=== PATIENT | female | born 1955 | race Caucasian/White ===

== ENCOUNTER 2019-04-23 10:55 | Inpatient (IN) ==
--- NOTE | 2019-04-23 11:48 | Diag Imaging Result Doc PS360 ---
EXAM: CT HEAD W/O CONTRAST 04/23/2019 HISTORY: STROKE LIKE SX TECHNIQUE: This exam was performed using automated exposure control, adjustment of mA or kV according to patient size, and/or use of iterative reconstruction technique. COMMENT: There are calcifications in the vertebral and internal carotid arteries bilaterally. There are patchy lucencies in the white matter both hemispheres particularly in the left centrum semiovale ovale and patel radiata regions. There is a focal area of lucency present in the anterior limb of the left internal capsule and also in both thalami. There are calcifications in the basal ganglia bilaterally. There is no evidence of bleed or abnormal extra-axial fluid collection and no mass effect is present. The visualized paranasal sinuses are clear. The calvarium is intact. There are no previous studies available for comparison. IMPRESSION: Extensive chronic ischemic changes. Given the chronic findings further evaluation with MRI may be desirable. Electronically signed by Bairon Resendez 04/23/2019 11:45 AM
--- NOTE | 2019-04-23 11:59 | Diag Imaging Result Doc PS360 ---
EXAM: CHEST-PORTABLE HISTORY: altered mSE TECHNIQUE: Chest single view COMPARISON: 03/06/2015 FINDINGS: Poor inspiratory effort. The heart is not enlarged. The vessels are not distended. There are no infiltrates. No effusion identified. IMPRESSION: Negative exam. Electronically signed by Karson Gomez 04/23/2019 11:56 AM
[2019-04-23 12:01] LABS: BASO# 0.01 X1000 (0.0-0.2); BASO% 0.1 % (0.0-0.8); EOS# 0.05 X1000 (0.0-0.7); EOS% 0.6 % (0.0-10.0); HEMATOCRIT 36.2 % (37.0-47.0); IMM GRAN# 0.02 X1000 (0.0-0.04); IMM GRAN% 0.2 % (0.0-0.5); LYMPH% 17.2 % (20.5-51.1); MCH 25.7 PG (27-31); MCHC 30.4 g/dL (33-37); MCV 84.6 FL (81-99); MONO% 8.6 % (1.7-9.3); MPV 9.6 FL (7.4-10.4); NEUT# 5.94 X1000 (1.4-6.5); NEUT% 73.3 % (42.2-75.2); PLT 484 X1000 (130-400); RBC 4.28 XMIL (4.2-5.4); RDW 14.6 % (11.5-14.5); WBC 8.12 X1000 (4.8-10.8)
[2019-04-23 12:06] LABS: INR 1.04; PROTIME 14.4 Seconds (11.0-16.0)
[2019-04-23 12:07] LABS: URINE SOURCE CATH
[2019-04-23 12:07] LABS: PTT 33.7 Seconds (22.3-41.8)
[2019-04-23 12:12] LABS: BLOOD TYPE ARTERIAL; SAMPLE BLOOD
[2019-04-23 12:12] LABS: BILIRUBIN URINE NEGATIVE (NEGATIVE); BLOOD URINE NEGATIVE (NEGATIVE); COLOR YELLOW; GLUCOSE URINE NEGATIVE (NEGATIVE); KETONE URINE NEGATIVE (NEGATIVE); LEUKOCYTES URINE NEGATIVE (NEGATIVE); NITRITE URINE NEGATIVE (NEGATIVE); PH URINE 6.5; PROTEIN URINE NEGATIVE (NEGATIVE); TURBIDITY URINE CLEAR (CLEAR); UR EPITHELIAL CELLS <10 /HPF (<10); URINE BACTERIA 2+ /HPF; URINE RBC <10 /HPF (<10); URINE WBC <10 /HPF (<10); UROBILINOGEN URINE NORMAL (NORMAL)
[2019-04-23 12:13] LABS: ALLEN TEST YES; BE 2.6 mmoll (-3.0-3.0); HCO3-(ACT) 26.9 mmoll (20.0-26.0); MODALITY ROOM AIR; O2(CT) 14.8 mL/dL (15.0-23.0); O2HB 94.3 % (95.0-99.0); PCO2(98.6) 36 mmHg (35-45); PO2(98.6) 69 mmHg (60-100); SAO2 96.8 % (95.0-100.0); THB 11.1 g/dL (11.5-17.4); pH(98.6) 7.47 (7.35-7.45)
[2019-04-23 12:20] LABS: UR AMPHETAMINES QUAL NONE DETECTED (NONE DETECT); UR BARBITUATES QUAL NONE DETECTED (NONE DETECT); UR BENZODIAZEPIN QUAL NONE DETECTED (NONE DETECT); UR CANNABINOIDS QUAL NONE DETECTED (NONE DETECT); UR COCAINE QUAL NONE DETECTED (NONE DETECT); UR METHADONE QUAL NONE DETECTED (NONE DETECT); UR OPIATES QUAL NONE DETECTED (NONE DETECT); UR OXYCODONE QUAL NONE DETECTED (NONE DETECT); UR PCP QUAL NONE DETECTED (NONE DETECT)
--- NOTE | 2019-04-23 12:29 | EKG Report ---
Test Performed on : 04/23/2019 11:21:57 AM Test Reason : altered MSE Blood Pressure : / mmHG Vent. Rate : 099 BPM Atrial Rate : 099 BPM P-R Int : 140 ms QRS Dur : 086 ms QT Int : 310 ms P-R-T Axes : 011 001 053 degrees QTc Int : 397 ms Normal sinus rhythm. Moderate voltage criteria for LVH, may be normal variant Nonspecific ST and T wave abnormality Abnormal ECG When compared with ECG of 09-MAR-2015 13:40, Nonspecific T wave abnormality has replaced inverted T waves in Lateral leads Unconfirmed Result
[2019-04-23 12:41] LABS: AGAP 15; ALB/GLOB RATIO 1.3; ALBUMIN 3.5 g/dL (3.5-5.0); ALKALINE PHOSPHATASE 98 U/L (32-104); BUN 10 mg/dL (8-22); CALCIUM 9.9 mg/dL (8.8-10.2); CHLORIDE 104 mmol/L (98-107); CK PROFILE 31 U/L (24-173); COSMO 283; CREATININE 0.6 mg/dL (0.5-0.9); ESTIMATED GFR > 60; GLUCOSE 121 mg/dL (70-104); GOT 8 U/L (10-30); GPT 8 U/L (10-36); POTASSIUM 4.3 mmol/L (3.5-5.1); SODIUM 142 mmol/L (136-145); TCO2 23 mmol/L (25-35); TOTAL PROTEIN 6.2 g/dL (6.3-8.3)
--- NOTE | 2019-04-23 16:20 | Diag Imaging Result Doc PS360 ---
EXAM: MRI BRAIN W/O CONTRAST 04/23/2019 HISTORY: new confusion, expressive aphasia TECHNIQUE: T1 sagittal, axial, axial T2, FLAIR, DWI and coronal gradient echo. COMMENT: There are some small punctate areas of increased T2-weighted signal intensity in the elena and lower midbrain. There are patchy periventricular foci of increased T2-weighted signal intensity with the old lacune in the left centrum semiovale ovale. There are patchy areas of increased T2-weighted signal intensity in the thalamus bilaterally and in the left basal ganglia region and anterior limb of the internal capsule. There is increased subcortical white matter hyperintensity in the left temporal lobe. No evidence of mass effect bleed or abnormal extra-axial fluid collection is present. There are punctate and patchy areas of restricted diffusion in the periventricular and subcortical white matter in the posterior temporal and parietal cortex on the left and in the centrum semiovale ovale,, basal ganglia parietal cortex on the left. There are no previous studies available for comparison. IMPRESSION: Acute or subacute ischemic lesions superimposed on extensive chronic ischemic microvascular change. The fairly widely distributed lesions on the left could be result of emboli coming from the left carotid. There are mostly in the distribution of the left middle cerebral artery although the posterior lesions are in the watershed zone between the posterior cerebral and middle cerebral territories. The findings were discussed with Jose Givens MD at 04/23/2019 4:17 PM. Electronically signed by Bairon Resendez 04/23/2019 4:18 PM
--- NOTE | 2019-04-23 17:11 | PROVIDER DOCUMENTATION ---
This chart was entered by Leighann Noriega Scribe, acting as scribe for Jose Givens MD. HPI-Neurological Disorder - General Chief Complaint: Altered Mental Status Stated Complaint: stroke like sx Time Seen by Provider: 04/23/19 11:14 Source: EMS Allergies/Adverse Reactions: Patient Allergies Allergy/AdvReac Type Severity Reaction Status Date / Time Sulfa (Sulfonamide Allergy RASH Verified 12/20/14 07:27 Antibiotics) Home Medications: Home Medication List Medication Instructions Recorded Confirmed Last Taken Type LISINOpril [Prinivil] 20 mg PO DAILY 04/23/19 04/23/19 Unknown History Meclizine HCl [Dramamine Less 1 tab PO Q8H PRN PRN 04/23/19 04/23/19 Unknown History Drowsy] Metformin E.r. [Glucophage Xr] 500 mg PO TID 04/23/19 04/23/19 Unknown History Metoprolol Succinate E.r. [Toprol 25 mg PO DAILY 04/23/19 04/23/19 Unknown History Xl] Simvastatin 20 mg PO QHS 04/23/19 04/23/19 Unknown History - History of Present Illness-Neuro Nature of Presenting Problem: 63yof presents to ED by EMS cc AMS. EMS reports they were called to pt doctor office because she was walking around in the parking lot confused. In ED nurse spoke with sister, who is listed as her emergency contact, and reports pt has a learning disability and speech impediment. Upon exam pt can answer yes/no questions but can't verbalize who the POTUS is. Pt has hx of DM, HTN and umbilical hernia repair. Onset/Duration: reports: unsure Timing: reports: still present Character of Altered Mental Status: reports: confused Review of Systems - Adult - REVIEW OF SYSTEMS - ADULT ROS:: unobtainable per condition Constitutional: reports: no symptoms reported Eyes: reports: no symptoms reported Ears, Nose, Mouth & Throat: reports: no symptoms reported Cardiovascular: reports: no symptoms reported Respiratory: reports: no symptoms reported Gastrointestinal: reports: no symptoms reported Genitourinary: reports: no symptoms reported Musculoskeletal: reports: no symptoms reported Integumentary: reports: no symptoms reported Neurological: reports: no symptoms reported Psychiatric: reports: no symptoms reported Endocrine: reports: no symptoms reported Hematologic/Lymphatic: reports: no symptoms reported Allergic/Immunologic: reports: no symptoms reported All Other Systems: Reviewed and Negative Past History - Adult - PAST MEDICAL HISTORY-ADULT Review of Records: reports: Nursing Assessment Review, Medications Reviewed, Social history reviewed & non-contributory. Major Childhood Illnesses: reports: denies history Cardiovascular: reports: denies history Respiratory: reports: denies history Gastrointestinal: reports: denies history Obstetrical/Gynecological: reports: denies history Genitourinary: reports: denies history Musculoskeletal: reports: denies history Neurological: reports: denies history Endocrine/Immune: reports: denies history Other Conditions: reports: denies history - IMMUNIZATION STATUS Childhood Immunizations: See Nurse Assessment Flu Vaccine: See Nurse Assessment - FAMILY HISTORY Family History: reviewed, not pertinent Physical Exam- Neurological - Physical Exam-Neuro Initial Vital Signs Reviewed: Yes General Appearance: other (soiled feet and shoes). negative: anxious, combative Eye Exam: bilateral eye: normal inspection, PERRL HENMT: moist mucous membranes, normal ENT inspection. negative: angioedema Head Injury: no evidence of injury. negative: active bleeding, Weston's Sign, contusions, ecchymosis Neck: non-tender, full range of motion, supple, normal inspection. negative: Brudzinski's sign, carotid bruit Respiratory: chest non-tender, lungs clear, normal breath sounds, no pleuratic chest pain, no respiratory distress, no accessory muscle use. negative: crackle s, rales, rhonchi Cardiovascular: normal peripheral pulses, regular rate, rhythm, no edema, no gallop, no JVD, no murmur. negative: bradycardia, tachycardia Abdominal Exam: normal bowel sounds, non tender, soft, no organomegaly. negative: rigid, rebound, tenderness Lymphatic: no adenopathy. negative: striations Extremity: normal range of motion, normal inspection. 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 negative: normal speech Neurologic: aphasia (expressive) Integumentary: normal color, normal turgor, warm/dry. negative: diaphoresis, jaundice Psych/Mental Status: negative: anxious Progress - PLAN OF CARE/RESULTS Progress/Plan/Lab Results: Vital Signs - 8 hr 04/23/19 11:23 04/23/19 11:24 04/23/19 11:30 Temperature 98.8 F Pulse Rate 105 H Respiratory Rate 18 Blood Pressure 167/91 167/91 O2 Sat by Pulse Oximetry 97 96 96 04/23/19 11:40 04/23/19 11:50 04/23/19 12:00 Temperature Pulse Rate 101 H 104 H 95 H Respiratory Rate 20 24 Blood Pressure O2 Sat by Pulse Oximetry 98 97 97 04/23/19 12:10 04/23/19 12:20 04/23/19 12:30 Temperature Pulse Rate 93 H 97 H 91 H Respiratory Rate 21 31 H 17 Blood Pressure O2 Sat by Pulse Oximetry 98 96 98 04/23/19 12:40 04/23/19 12:50 04/23/19 13:00 Temperature Pulse Rate 91 H 93 H Respiratory Rate 14 29 H Blood Pressure O2 Sat by Pulse Oximetry 96 96 97 04/23/19 13:10 04/23/19 13:20 04/23/19 13:30 Temperature Pulse Rate 93 H 93 H 95 H Respiratory Rate 0 L 27 H 31 H Blood Pressure O2 Sat by Pulse Oximetry 96 96 96 04/23/19 13:40 04/23/19 13:50 04/23/19 14:00 Temperature Pulse Rate 91 H 86 96 H Respiratory Rate 22 15 20 Blood Pressure O2 Sat by Pulse Oximetry 96 96 96 04/23/19 14:10 04/23/19 14:28 04/23/19 14:30 Temperature Pulse Rate 93 H 96 H 102 H Respiratory Rate 11 L Blood Pressure O2 Sat by Pulse Oximetry 97 96 04/23/19 14:40 04/23/19 14:50 04/23/19 15:00 Temperature Pulse Rate 97 H 97 H 102 H Respiratory Rate Blood Pressure O2 Sat by Pulse Oximetry 93 L 94 L 93 L 04/23/19 15:10 04/23/19 15:20 04/23/19 15:30 Temperature Pulse Rate 97 H 99 H 96 H Respiratory Rate 18 Blood Pressure O2 Sat by Pulse Oximetry 95 96 96 04/23/19 15:40 Temperature Pulse Rate 99 H Respiratory Rate Blood Pressure O2 Sat by Pulse Oximetry 92 L Laboratory Results - last 24 hr 04/23/19 04/23/19 04/23/19 11:46 11:46 11:46 WBC 8.12 RBC 4.28 Hgb 11.0 L Hct 36.2 L MCV 84.6 MCH 25.7 L MCHC 30.4 L RDW Std Deviation 14.6 H Plt Count 484 H MPV 9.6 Immature Gran % (Auto) 0.2 Neut % (Auto) 73.3 Lymph % (Auto) 17.2 L Coal % (Auto) 8.6 Eos % (Auto) 0.6 Baso % (Auto) 0.1 Immature Gran # (Auto) 0.02 Neut # (Auto) 5.94 Lymph # (Auto) 1.40 Coal # (Auto) 0.70 H Eos # (Auto) 0.05 Baso # (Auto) 0.01 PT INR PTT (Actin FS) Specimen Type Sample Site pH pCO2 pO2 HCO3 Base Excess Oxyhemoglobin ABG O2 Sat (Calculated) ABG O2 Saturation ABG Carboxyhemoglobin ABG Methemoglobin Kota Test A-a O2 Difference Total Hemoglobin Lactate Blood Gas Modality FiO2 % Sodium 142 Potassium 4.3 Chloride 104 Carbon Dioxide 23 L Anion Gap 15 BUN 10 Creatinine 0.6 Estimated GFR/1.73 m2 > 60 BUN/Creatinine Ratio 17 Glucose 121 H POC Glucose Calculated Osmolality 283 Calcium 9.9 Total Bilirubin 0.20 AST 8 L ALT 8 L Alkaline Phosphatase 98 Creatine Kinase 31 Troponin T Total Protein 6.2 L Albumin 3.5 Globulin 2.7 Albumin/Globulin Ratio 1.3 Plasma Lactate 1.1 Urine Source Urine Color Urine Turbidity Urine pH Ur Specific [place] Urine Protein Ur Glucose (Stick) Ur Ketones (Stick) Urine Blood Urine Nitrite Urine Bilirubin Urobilinogen Dipstick Urine Leukocytes Urine WBC (Auto) Urine RBC (Auto) U Epithel Cells (Auto) Urine Bacteria (Auto) Urine Opiates Screen Ur Oxycodone Screen Ur Methadone, Qual Ur Barbiturates Screen Ur Phencyclidine Scrn Ur Amphetamines Screen U Benzodiazepines Scrn Urine Cocaine Screen U Cannabinoids Screen Plasma/Serum Ethyl Alc 04/23/19 04/23/19 04/23/19 11:46 11:46 11:46 WBC RBC Hgb Hct MCV MCH MCHC RDW Std Deviation Plt Count MPV Immature Gran % (Auto) Neut % (Auto) Lymph % (Auto) Coal % (Auto) Eos % (Auto) Baso % (Auto) Immature Gran # (Auto) Neut # (Auto) Lymph # (Auto) Coal # (Auto) Eos # (Auto) Baso # (Auto) PT 14.4 INR 1.04 PTT (Actin FS) 33.7 Specimen Type Sample Site pH pCO2 pO2 HCO3 Base Excess Oxyhemoglobin ABG O2 Sat (Calculated) ABG O2 Saturation ABG Carboxyhemoglobin ABG Methemoglobin Kota Test A-a O2 Difference Total Hemoglobin Lactate Blood Gas Modality FiO2 % Sodium Potassium Chloride Carbon Dioxide Anion Gap BUN Creatinine Estimated GFR/1.73 m2 BUN/Creatinine Ratio Glucose POC Glucose Calculated Osmolality Calcium Total Bilirubin AST ALT Alkaline Phosphatase Creatine Kinase Troponin T < 0.010 Total Protein Albumin Globulin Albumin/Globulin Ratio Plasma Lactate Urine Source Urine Color Urine Turbidity Urine pH Ur Specific [place] Urine Protein Ur Glucose (Stick) Ur Ketones (Stick) Urine Blood Urine Nitrite Urine Bilirubin Urobilinogen Dipstick Urine Leukocytes Urine WBC (Auto) Urine RBC (Auto) U Epithel Cells (Auto) Urine Bacteria (Auto) Urine Opiates Screen Ur Oxycodone Screen Ur Methadone, Qual Ur Barbiturates Screen Ur Phencyclidine Scrn Ur Amphetamines Screen U Benzodiazepines Scrn Urine Cocaine Screen U Cannabinoids Screen Plasma/Serum Ethyl Alc 04/23/19 04/23/19 04/23/19 11:55 11:55 12:00 WBC RBC Hgb Hct MCV MCH MCHC RDW Std Deviation Plt Count MPV Immature Gran % (Auto) Neut % (Auto) Lymph % (Auto) Coal % (Auto) Eos % (Auto) Baso % (Auto) Immature Gran # (Auto) Neut # (Auto) Lymph # (Auto) Coal # (Auto) Eos # (Auto) Baso # (Auto) PT INR PTT (Actin FS) Specimen Type ARTERIAL Sample Site R RADIAL pH 7.47 H pCO2 36 pO2 69 HCO3 26.9 H Base Excess 2.6 Oxyhemoglobin 94.3 L ABG O2 Sat (Calculated) 14.8 L ABG O2 Saturation 96.8 ABG Carboxyhemoglobin 1.70 ABG Methemoglobin 1.0 Kota Test YES A-a O2 Difference 36.0 Total Hemoglobin 11.1 L Lactate 0.60 Blood Gas Modality ROOM AIR FiO2 % 21.0 Sodium Potassium Chloride Carbon Dioxide Anion Gap BUN Creatinine Estimated GFR/1.73 m2 BUN/Creatinine Ratio Glucose POC Glucose Calculated Osmolality Calcium Total Bilirubin AST ALT Alkaline Phosphatase Creatine Kinase Troponin T Total Protein Albumin Globulin Albumin/Globulin Ratio Plasma Lactate Urine Source CATH Urine Color YELLOW Urine Turbidity CLEAR Urine pH 6.5 Ur Specific [place] 1.020 Urine Protein NEGATIVE Ur Glucose (Stick) NEGATIVE Ur Ketones (Stick) NEGATIVE Urine Blood NEGATIVE Urine Nitrite NEGATIVE Urine Bilirubin NEGATIVE Urobilinogen Dipstick NORMAL Urine Leukocytes NEGATIVE Urine WBC (Auto) <10 Urine RBC (Auto) <10 U Epithel Cells (Auto) <10 Urine Bacteria (Auto) 2+ Urine Opiates Screen NONE DETECTED Ur Oxycodone Screen NONE DETECTED Ur Methadone, Qual NONE DETECTED Ur Barbiturates Screen NONE DETECTED Ur Phencyclidine Scrn NONE DETECTED Ur Amphetamines Screen NONE DETECTED U Benzodiazepines Scrn NONE DETECTED Urine Cocaine Screen NONE DETECTED U Cannabinoids Screen NONE DETECTED Plasma/Serum Ethyl Alc 04/23/19 12:03 WBC RBC Hgb Hct MCV MCH MCHC RDW Std Deviation Plt Count MPV Immature Gran % (Auto) Neut % (Auto) Lymph % (Auto) Coal % (Auto) Eos % (Auto) Baso % (Auto) Immature Gran # (Auto) Neut # (Auto) Lymph # (Auto) Coal # (Auto) Eos # (Auto) Baso # (Auto) PT INR PTT (Actin FS) Specimen Type Sample Site pH pCO2 pO2 HCO3 Base Excess Oxyhemoglobin ABG O2 Sat (Calculated) ABG O2 Saturation ABG Carboxyhemoglobin ABG Methemoglobin Kota Test A-a O2 Difference Total Hemoglobin Lactate Blood Gas Modality FiO2 % Sodium Potassium Chloride Carbon Dioxide Anion Gap BUN Creatinine Estimated GFR/1.73 m2 BUN/Creatinine Ratio Glucose POC Glucose 109 H Calculated Osmolality Calcium Total Bilirubin AST ALT Alkaline Phosphatase Creatine Kinase Troponin T Total Protein Albumin Globulin Albumin/Globulin Ratio Plasma Lactate Urine Source Urine Color Urine Turbidity Urine pH Ur Specific [place] Urine Protein Ur Glucose (Stick) Ur Ketones (Stick) Urine Blood Urine Nitrite Urine Bilirubin Urobilinogen Dipstick Urine Leukocytes Urine WBC (Auto) Urine RBC (Auto) U Epithel Cells (Auto) Urine Bacteria (Auto) Urine Opiates Screen Ur Oxycodone Screen Ur Methadone, Qual Ur Barbiturates Screen Ur Phencyclidine Scrn Ur Amphetamines Screen U Benzodiazepines Scrn Urine Cocaine Screen U Cannabinoids Screen Plasma/Serum Ethyl Alc Orders Category Date Time Status Cardiac Monitoring DIRECTED Care 04/23/19 11:33 Active Saline Loc NOW Care 04/23/19 11:33 Active CHEST-PORTABLE [RAD] Stat Exams 04/23/19 11:[address] HEAD W/O CONTRAST [CT] Stat Exams 04/23/19 10:57 Completed MRI BRAIN W/O CONTRAST [MRI] Stat Exams 04/23/19 14:48 Completed ABG [RESP] Routine Lab 04/23/19 12:00 Completed ALCOHOL BLOOD Stat Lab 04/23/19 11:46 Completed CBC WITH ELECTRONIC DIFF [HEME] Stat Lab 04/23/19 11:46 Completed CK PROFILE [SP CHEM] Stat Lab 04/23/19 11:46 Completed COMPREHENSIVE METABOLIC PANEL [CHEM] Stat Lab 04/23/19 11:46 Completed LACTATE, PLASMA [CHEM] Stat Lab 04/23/19 11:46 Completed PROTIME WITH INR [COAG] Stat Lab 04/23/19 11:46 Completed PTT [COAG] Stat Lab 04/23/19 11:46 Completed TROPONIN T Stat Lab 04/23/19 11:46 Completed URINALYSIS [URINALYSIS] Stat Lab 04/23/19 11:55 Completed URINE DRUG SCREEN Stat Lab 04/23/19 11:55 Completed Altered Mental Status Stat Oth 04/23/19 11:33 Ordered EKG [EKG] Stat Ther 04/23/19 11:33 Draft 1454-Pt neighbor here and reports she is changed from baseline over the past week especially her speech and cognitive ability Result Diagrams: 04/23/19 11:46 04/23/19 11:46 - REASSESSMENT Reassessment #1 Time Reassessed: 14:30 Status: unchanged (MRI reveals multiple areas of restriction diffusion in L MCA distribution sugg'x of embolic source. will consult for admission) - EKG 1 Time of EKG reading by physician:: 11:26 EKG Read and Signed by:: Jose Givens EKG Interpretation (*Must complete 3 of following elements*): Abnormal Rate: 99 Rhythm: normal sinus QRS: LVH (moderate voltage, may be normal variant) ST Wave: non-specific ST changes - XRAY 1 XRAY: Bilateral XRAY Study: Chest Impression: See EMR Report (IMPRESSION: Negative exam. Electronically sig dianne by Karson Gomez 04/23/2019 11:56 AM) - CT/MRI 1 CT Study: Head Impression: See EMR Report (MPRESSION: Extensive chronic ischemic changes. Given the chronic findings further evaluation with MRI may be desirable. El ectronically signed by Bairon Resendez 04/23/2019 11:45 AM) MRI Study: Brain Impression: See EMR Report (IMPRESSION: Acute or subacute ischemic lesions superimposed on extensive chronic ischemic microvascular change. The fairly widely distributed lesions on the left could be result of emboli coming from the left carotid. There are mostly in the distribution of the left middle cerebral artery although the posterior lesions are in the watershed zone between the posterior cerebral and middle cerebral territories. The findings were discussed with Jose Givens MD at 04/23/2019 4:17 PM. Electronically signed by Bairon Resendez 04/23/2019 4:18 PM) - CONSULTS/PCP/HOSPITALIST Notification #1 *Consult/PCP/Hospitalist*: Dr. Torres Time Discussed: 16:25 Consult Disposition: Admit (agreed to admit) Departure - Departure Date of Disposition Decision: 04/23/19 Time of Disposition Decision: 16:00 DIAGNOSIS: Acute cerebral infarction Disposition: ADMITTED INPATIENT 09 Certified Medical Emergency: Emergent Condition: Stable Referrals and Follow-Ups: Gian Bacon MD [Primary Care Provider] - - Critical Care Note This patient required my direct & personal management of CC.: No Attestation - Physician/ NUVIA Attestation Patient care was provided by Advanced Practice Provider:: No The physician spent face to face time with patient:: Yes Advanced Practice Provider documentation review:: Supervising physician onsite and consulted in the evaluation and care of this patient. The physician did have a face to face encounter with the patient. - NIH Stroke Scale Level of Consciousness: 0-Alert LOC Questions (ask month and age): 1-Answers One Correctly LOC Commands (ask to open & close eyes;make a fist, let go): 0-Obeys Both Correctly Best Gaze (horizontal eye movement): 0-Normal Visual (use finger movement, counting or visual threat): 0-No Visual Loss Facial Palsy (show teeth or raise eyebrows & close eyes tght: 0-Symmetrical Movement Motor Function-left arm: 0-Normal Motor Function-right arm: 0-Normal Motor Function-left le-Normal Motor Function-right le-Normal Limb Ataxia([id number], or heel to gallagher): 0-No Ataxia Sensory(pin prick to face,arms,trunk,legs-compare side/side): 0-No Ataxia Best Language(name item/read sentence.Ex-Down to Earth): 1-Mild to Moderate Aphasia Dysarthria(Pt read words or say words Ex.Mama,Tip-Top,Thanks: 1-Mild-Mod Slurring Words Extinction and Inattention: 0-Normal Modified Newberry Score Criteria: 3-moderate disability This chart was documented by the indicated scribe, (Leighann Noriega, Luly) and accurately reflects the services I performed and decisions made by me, Neha in,Jose Mercado MD, as attested by the provider's signature.
[2019-04-23] MEDS ORDERED: TYLENOL PO PRN (18:05)
[2019-04-23] MEDS ORDERED: ZOFRAN IV PRN (18:07)
--- NOTE | 2019-04-23 19:11 | HISTORY AND PHYSICAL ---
PRIMARY CARE PROVIDER: Dr. Gian Bacon. CHIEF COMPLAINT: Had altered mental status and expressive aphasia. HISTORY OF PRESENT ILLNESS: Ms. Josefa Abrams is a 63-year-old female with a medical history of speech impediment and the information that I could get from her is that she has had coronary disease with stents in the past and then she claims that she has had a stroke some time this year, but this could be inaccurate as well, as she is having difficulty expressing what she wants to say. So apparently earlier today she was found wandering around in Dr. Gian Bacon's parking lot. The friend, who is a neighbor of hers, thought she had an appointment with Dr. Bacon, but then Dr. Bacon's office said she did not. So, apparently (and this is third republican information I am getting from the nurse, who apparently talked to the neighbor) the neighbor stated that on Friday she seemed kind of off but continued to do things around the place like mowing the yard and her usual activities up until today when she seemed to be wandering around in the parking lot. She had a workup which revealed that she has acute or subacute ischemic lesions on extensive chronic ischemic microvascular changes on the left middle cerebral artery, Watershed zone, between the posterior cerebral and the middle cerebral arteries. Now the actual time of when this happened is unclear as there is reports of her being altered a little bit, even this past Friday. Currently, her vital signs are stable but assessment reveals that she does have expressive aphasia. She has an easier time saying yes and no to specific questions. She is oriented to name only as far as we could tell, she can say her name. She is actually decently equal on both upper and lower extremities but she has some numbness and tingling on the right side and she has a mild right facial droop. Tongue is not deviated. She has mild right upper extremity pronator drift. Pupils are equal and reactive. She follows commands. Given that this is like a Watershed distribution, will consult Cardiology to evaluate for any type of cardiac cause and will check the carotids as well with imaging. Will consult Neurology. PAST MEDICAL HISTORY: 1. Osteoarthritis. 2. Hypertension. 3. GERD. 4. Speech impediment. The next few medical history was her answering yes or no to questions but she did say yes to 1. Stroke this year. 2. Coronary disease. 3. No to heart attack, but yes to stents. 4. Yes to diabetes. 5. Yes to hyperlipidemia. 6. Denies any other medical history. PAST SURGICAL HISTORY: 1. Left total knee arthroplasty. 2. Left carpal tunnel release. The following is her answering yes or no to specifics 1. Yes to right knee surgery. 2. Yes to cardiac stents. 3. Yes to cholecystectomy. 4. Yes to appendectomy. SOCIAL HISTORY: Denies tobacco, alcohol, or illicit drug use. She lives by herself in [place]. She was able to give the number of her residence or number address to her residence. She has never been , never had kids. Her neighbor, who lives across from her, sees her almost on a daily basis. ALLERGIES: Sulfa. HOME MEDICATIONS: 1. Simvastatin 20 mg p.o. nightly. 2. Meclizine one tablet p.o. every eight hours p.r.n. 3. Metformin 500 mg p.o. t.i.d. 4. Lisinopril 20 mg p.o. daily. 5. Toprol XL 25 mg p.o. daily. REVIEW OF SYSTEMS: Difficult to obtain, but she stated no to multiple questions. Denied headache, dizziness, or lightheadedness. She did say yes to not remembering what happened up until she got here. Otherwise, 14-point review of systems are complete and all are negative except as mentioned above in the HPI. PHYSICAL EXAMINATION: VITAL SIGNS: Temperature 98.8, heart rate 99, respiratory rate 18, blood pressure 167/91, oxygen saturation 92% on room air. GENERAL: Ms. Josefa Abrams is a 63-year-old female. She is in no acute distress. She has a lot of difficulty answering questions. HEENT: Atraumatic. She is asymmetrical with her face. She has right facial droop. Tongue does not deviate though, it goes straight. Her mucous membranes are moist. Pupils are equal and reactive. Extraocular movements are intact. NECK: Trachea is midline. CARDIOVASCULAR: S1, S2. Regular rate and rhythm. No rubs, gallops, or murmurs. No lower extremity edema. +2 dorsalis and radial pulses. Negative for JVD or carotid bruits. PULMONARY: Clear to auscultate. Bilateral breath sounds. No accessory muscle use or work of breathing noted. GI: Soft, nontender, and nondistended. Positive bowel sounds times x4. EXTREMITIES: She actually moves all extremities equally but has a right upper extremity pronator drift. She has numbness down the right side of her body, including her face. NEURO: Oriented to name. Disoriented otherwise or was unable to express her answers. She may have known the answer but could not express it. So, she is quite notable for expressive aphasia but receptive is normal for her. She is able to follow commands. Sensory - numbness on the right side of her body. SKIN: Warm, dry, and intact. LABORATORY DATA: White blood cells 8000. Hemoglobin 11. Hematocrit 36. Platelet count 484,000. INR is 1.04. PTT is 33.7. ABGs on room air - pH 7.47, pCO2 36, pO2 69, bicarb 26, base excess 2.6, saturation 94%. Lactate 0.6. Sodium 142, potassium 4.3, BUN 10, creatinine 0.6, glucose 121, calcium 9.9, bilirubin 0.20, AST 8, ALT 8. CK 31. Troponin less than 0.01. Albumin 3.5. Serum lactate 1.1. Urinalysis negative but it does have 2+ bacteria. Urine drug screen negative. Alcohol level negative. IMAGING: She had a head CT with extensive chronic ischemic changes; given the chronic findings, further evaluation with MRI may be desirable. So, we had a brain MRI which showed an acute or subacute ischemic lesion superimposed on extensive chronic ischemic microvascular change; fairly wide distribution of lesions on the left which could be embolic by nature from the left carotid, most of the distribution is in the left middle cerebral artery, although the posterior lesions are in the Watershed zone between the posterior cerebral and middle cerebral territories. Chest x- ray: Negative exam. EKG: Normal sinus rhythm. Rate 99. QTc 397. ASSESSMENT AND PLAN: 1. Acute to subacute embolic cerebrovascular accident on the left in the Watershed zones which include most distribution of the left middle cerebral artery. There are posterior lesions in the Watershed zone between the posterior cerebral and the middle cerebral territories as well. Aspirin, statin, and neuro consult. Given that it is embolic, will consult Cardiology to evaluate the heart for source of emboli. She did well with her swallow, so she can swallow. Will still do Speech Therapy and Physical Therapy. Will check her hemoglobin A1c and her lipid panel in the morning. Will allow for permissive hypertension as best as possible. She is on two antihypertensives. I held one. I kept her beta-erin because of her history of coronary disease. 2. History of coronary artery disease, according to the patient. She has a stent but never had a heart attack. She is on a statin and beta-erin at home. I am not sure if she takes aspirin or not. I would think she has because she has had a history of stroke, according to her. 3. Gastroesophageal reflux disease, but she does not take anything at home for that. 4. Hypertension. Will allow for a little bit of permissive hypertension. Will hold her lisinopril and start her Toprol at 25 orally daily and hold if the systolic is less than 130 for now. 5. Hyperlipidemia. Continue statins. 6. Diabetes mellitus type 2. Will hold her metformin. Will do patterned blood glucoses and sliding scale insulin. 7. Deep venous thrombosis prophylaxis. Sequential compression devices for now. Dictated by SOFI Coker for Rafat Manning MD Addendum: Patient seen and examined by myself. Agree with Sofi note. It reflects my assessment and plan. Patient is being admitted to hospital for acute embolic stroke. She has history of stroke in the past and with all those findings will order an echocardiogram and consult Neurology and Cardiology. Will follow recommendations. cc: SOFI Coker MD [facility]
--- NOTE | 2019-04-23 19:52 | Diag Imaging Result Doc PS360 ---
EXAM: CT ANGIOGRAM HEAD/NECK HISTORY: embolic stroke TECHNIQUE: 1. CT angiogram head with contrast. MIP images obtained. 2. CT angiogram neck with contrast. MIP images obtained. COMPARISON: None. FINDINGS: Angiogram head: Suboptimal images. Very little detail is seen. There is flow within each anterior and middle cerebral artery and each posterior cerebral artery. Unable to tell if there are prominent stenoses. Angiogram neck: No occlusion or stenosis within either common carotid artery. No occlusion within either internal carotid artery. Minimal plaque within each bulb. No significant stenosis. The vertebral arteries are poorly seen. IMPRESSION: Angiogram head: Suboptimal exam. No occlusion or stenosis identified. Angiogram neck: Normal flow within each common carotid artery with minimal stenosis within each internal carotid bulb. This exam was performed using automated exposure control, adjustment of mA or kV according to patient size, and/or use of iterative reconstruction technique. Electronically signed by Karson Gomez 04/23/2019 7:49 PM
[2019-04-23] MEDS: NS 1,000 ML IV SCH (22:15)
[2019-04-23] MEDS: LIPITOR PO SCH (22:15)
[2019-04-24 00:38] LABS: URINE SOURCE CLEAN CATCH
[2019-04-24 01:09] LABS: BILIRUBIN URINE NEGATIVE (NEGATIVE); BLOOD URINE NEGATIVE (NEGATIVE); COLOR YELLOW; GLUCOSE URINE NEGATIVE (NEGATIVE); KETONE URINE NEGATIVE (NEGATIVE); LEUKOCYTES URINE SMALL (NEGATIVE); NITRITE URINE POSITIVE (NEGATIVE); PROTEIN URINE TRACE mg/dL (NEGATIVE); TURBIDITY URINE CLEAR (CLEAR); UROBILINOGEN URINE NORMAL (NORMAL)
[2019-04-24 01:10] LABS: UR EPITHELIAL CELLS <10 /HPF (<10); URINE BACTERIA 4+ /HPF; URINE RBC <10 /HPF (<10); URINE WBC TNTC /HPF (<10)
[2019-04-24 07:34] LABS: BASO# 0.01 X1000 (0.0-0.2); BASO% 0.1 % (0.0-0.8); EOS# 0.07 X1000 (0.0-0.7); EOS% 0.9 % (0.0-10.0); HEMATOCRIT 36.2 % (37.0-47.0); HEMOGLOBIN 10.9 g/dL (12.0-16.0); LYMPH# 1.29 X1000 (1.2-3.4); LYMPH% 16.8 % (20.5-51.1); MCH 25.6 PG (27-31); MCHC 30.1 g/dL (33-37); MONO# 0.65 X1000 (0.11-0.59); MONO% 8.5 % (1.7-9.3); MPV 9.5 FL (7.4-10.4); NEUT# 5.64 X1000 (1.4-6.5); NEUT% 73.7 % (42.2-75.2); PLT 457 X1000 (130-400); RBC 4.26 XMIL (4.2-5.4); RDW 14.7 % (11.5-14.5); WBC 7.66 X1000 (4.8-10.8)
[2019-04-24 07:45] LABS: INR 1.09
[2019-04-24 07:46] LABS: PTT 36.6 Seconds (22.3-41.8)
[2019-04-24 07:57] LABS: HEMOGLOBIN A1C 6.2 % (4.8-6.0)
[2019-04-24 08:06] LABS: AGAP 10; ALB/GLOB RATIO 1.2; ALBUMIN 3.4 g/dL (3.5-5.0); ALKALINE PHOSPHATASE 90 U/L (32-104); BUN 6 mg/dL (8-22); CALCIUM 9.6 mg/dL (8.8-10.2); CHLORIDE 104 mmol/L (98-107); COSMO 277; CREATININE 0.6 mg/dL (0.5-0.9); ESTIMATED GFR > 60; GLUCOSE 133 mg/dL (70-104); GOT 8 U/L (10-30); GPT 7 U/L (10-36); POTASSIUM 4.3 mmol/L (3.5-5.1); SODIUM 139 mmol/L (136-145); TCO2 25 mmol/L (25-35); TOTAL BILIRUBIN 0.24 mg/dL (0.20-1.00); TOTAL PROTEIN 6.3 g/dL (6.3-8.3)
[2019-04-24] MEDS: ASPIRIN PO SCH (09:43)
[2019-04-24] MEDS: TOPROL XL PO SCH (09:43)
[2019-04-24] MEDS: NS 1,000 ML IV SCH (09:43)
--- NOTE | 2019-04-24 15:24 | ECHO REPORT ---
ORDER DATE: 04/23/2019 INTERPRETING PHYSICIAN: Emanuel Christensen MD INDICATION: This is a patient that has expressive aphasia. Question of recent recurrent stroke. M-MODE MEASUREMENTS: Left ventricle end diastole: 4.1 cm. Left ventricle end systole: 2.4 cm. Posterior wall: 1.2 cm. Interventricular septum: 1.3 cm. Left atrium: 3.4 cm. Aortic diameter: Not measured here. SUMMARY OF 2-DIMENSIONAL IMAGIN. Left ventricular systolic function is normal. Ejection fraction is estimated in the 70% to 75% range. The ventricle is hyperdynamic. 2. The aortic valve shows a minimal degree of sclerosis of the cusps but normal opening of the cusps. Color flow mapping is unremarkable. 3. The mitral annulus shows mild calcification. Color flow mapping of the mitral valve is unremarkable. 4. Pulse wave Doppler of mitral inflow shows relatively normal E/A ratio. 5. Tissue Doppler of septal and lateral mitral annulus was not carried out. 6. The tricuspid valve looks grossly normal. Color flow mapping is unremarkable. 7. Pulmonary pressure appears to be normal. 8. The pulmonic valve looks normal. Color flow mapping is unremarkable. 9. There is no pericardial effusion and no sign of thrombus. 10.Optison was added to better identify the endocardium and exclude thrombus. That resulted in no better assessment. Basically the patient has a hyperdynamic left ventricle and nothing else. The E/A ratio is 0.6. SUMMARY: In summary, this echocardiographic study shows: 1. Hyperdynamic left ventricle. 2. No pulmonary hypertension. 3. No evidence of cardiac masses. 4. No evidence of any significant valvular abnormality. Clinical correlation is recommended. cc: MD Rafat Meredith MD
--- NOTE | 2019-04-24 19:18 | PROGRESS NOTE ---
DATE: 04/24/2019 SUBJECTIVE: The patient is aphasic and answer yes or not to every question asked. She looks a little more awake today. OBJECTIVE: Vital signs: Temperature 97.6 degrees, heart rate 85, respiratory rate 18, blood pressure 162/80, O2 saturation 100% on room air.General Examination: This is a chronically ill- appearing 63-year-old female lying in bed, in no acute distress. Cardiovascular: S1, S2 heard. No murmurs, gallops or rubs. Regular rate and rhythm. Respiratory exam: Clear bilaterally to auscultation. No work of breathing or use of accessory muscles. Abdomen is soft, nontender to palpation. Bowel sounds present. No organomegaly. Extremities: No clubbing, cyanosis or edema. Peripheral pulses present in both legs. Neurological: The patient is oriented to name but disoriented to time and place. The patient is not able to express what she wanted to say. She has expressive aphasia. She follows commands. There is a numbness in the right side of her body. LABORATORY DATA: Reviewed. ASSESSMENT AND PLAN: 1. Acute embolic cerebrovascular accident. That is what the MRI of the brain shows. We have checked also CT of head and neck that is normal. At this time, considering that the reason for stroke is an embolic cause, Cardiology has been consulted for recommendations. Physical Therapy and Speech Therapy have been consulted. Unfortunately patient is not able to provide any pertinent information about her. Will try to get in contact with family and will go from there. 2. History of coronary artery disease. Aware. Not complaining of any chest pain. We will continue to monitor. 3. Gastroesophageal reflux disease. We will continue home medications. 4. Hypertension. We are allowing permissive hypertension as of now. We will treat blood pressure that is greater than 180 to 200. 5. Hyperlipidemia. We will continue with statin. 6. Diabetes mellitus type 2. Metformin has been held. We will continue with sliding scale insulin. Accu-Chek before meals and also at bedtime. cc: Rafat Manning MD [facility]
[2019-04-24] MEDS: LIPITOR PO SCH (22:27)
--- NOTE | 2019-04-24 23:47 | CARDIOLOGY CONSULTATION ---
DATE: 04/24/2019 CONSULTATION REQUESTED BY: Hospitalist service. REASON FOR CONSULTATION: Patient with suspected embolic stroke. HISTORY: This patient comes into the ER, according to the ER physician note, at 11:41 in the morning on April 23 with "confusion." The patient cannot verbalize. In the ER, they had found stable vital signs. Her blood pressure was 167/91, pulse was 105, temperature was 98 degrees, respirations were documented as 18 per minute. They did a head CT that shows extensive chronic ischemic change, MRI was suggested. The MRI of the brain done yesterday at 2:30 p.m. shows acute or subacute ischemic lesions superimposed on extensive chronic ischemic microvascular change. The fairly widely distributed lesions on the left could be the result of emboli coming from left carotid vessel. They went ahead and did a head and neck CT that was reported as a sub optimal exam at the level of the head. The neck showed normal flow within each common carotid vessel with minimal stenosis within each internal carotid ball. A chest x-ray reported as negative exam. EKG was done and showed sinus rhythm, early transition, nonspecific ST, T, this is at 11:21 in the morning of April 23. Troponin levels have been checked just once, is normal. ProBNP has not been checked. Lipid panel: Total cholesterol 141, LDL 80, HDL 41, triglycerides 95. BUN, creatinine normal. Hemoglobin is 10.9, hematocrit 36.2. The patient is aphasic. She cannot provide any meaningful intelligible cogent information. I cannot obtain surgical history on her. From records I have at my office, she had seen Dr. Demarco Ross as a referral from Dr. Andreia Vanegas office in 2013. At that time, they did a stress test that showed some questionable apical ischemia. Dr. Ross stated that she had hypertension. He prescribed amlodipine. She has had a left knee replacement. The patient has no children. She was disabled at that time. There is nothing else available in my office records. HOME MEDICATIONS: Listed included lisinopril 20 daily, meclizine every 8 hours, metformin 500 three times a day, metoprolol 25 mg daily, simvastatin 20 at bedtime. ALLERGIES: To sulfa drugs. PHYSICAL EXAMINATION: Vital signs: Blood pressure is 162/80, temperature 97.6 degrees, pulse 85, respirations 18. General: Patient is aphasic. She is not in distress. HEENT: Unremarkable. Chest: Diminished breath sounds bilaterally. Heart: Sounds are regular rhythmic. I do not hear a gallop or murmur. Abdomen: Nontender. Extremities: Show good pulses. No edema. Neurologic: She is aphasic. She has some inability to perform fine motor testing. She is just basically aphasic. IMPRESSION: 1. Patient who apparently has had a previous neurological event with residual expressive aphasia, which is very significant. 2. Question of recurrent embolic stroke from a cardiovascular source. 3. Per review of records, history of hypertension and seemingly diabetes mellitus type 2, since she is taking metformin. RECOMMENDATIONS: The 1st thing we need to do is really get a hold of the family. I have called the 2 phone numbers that I had listed in my office records from 2013, and none of those 2 numbers helps me to contact any family member. One has been disconnected already. We need to get information on this patient, past history. Once we contact the family, will be able to discuss whether or not we need to do a COMFORT on her to exclude cardiac embolism. I will review the echocardiogram that has been requested by the hospitalist service, and we will stop here until we decide with the family what other tests may be appropriate for this patient. cc: Emanuel Christensen MD
[2019-04-25] MEDS: NS 1,000 ML IV SCH ×3 (03:42→21:52)
[2019-04-25] MEDS: ASPIRIN PO SCH (10:26)
[2019-04-25] MEDS: TOPROL XL PO SCH (10:26)
--- NOTE | 2019-04-25 11:07 | CARDIOLOGY PROGRESS NOTE ---
DATE: 04/25/2019 CHIEF COMPLAINT: Aphasia. SUBJECTIVE: The patient continues to be aphasic. She does not seem to be in distress. OBJECTIVE: Blood pressure 159/86, temperature 98 degrees, pulse 87, respirations 20. The patient is awake. Chest: Clear to auscultation and percussion. Heart sounds regular and rhythmic. No gallop or murmur. DIAGNOSTIC DATA: Telemetry shows no arrhythmia. Blood work from yesterday shows a D-dimer of 1.63, sedimentation rate of 43 mm per hour. C-reactive protein is 123.3. Carcinoembryonic antigen is 9.0 nanograms per deciliter. IMPRESSION: 1. The patient presented with aphasia, possible recurrent stroke. 2. History of hypertension. 3. Diabetes mellitus type 2. 4. Inflammatory process going on with elevation of carcinoembryonic antigen. Rule out lung malignancy. RECOMMENDATIONS: At this time, I would request a CT of the chest without contrast, looking for pulmonary nodules. We are waiting for family members to show up and tell us what is going on with this patient's history. There is a gap of 5 years of unknown medical events that I cannot fill unless a family member or somebody who knows this patient can tell me. cc: Emanuel Christensen MD
--- NOTE | 2019-04-25 14:24 | PROGRESS NOTE ---
DATE: 04/25/2019 SUBJECTIVE: Patient continues to be aphasic and responds "yes" or "no" to every question asked. No acute issues noted as per nursing staff overnight. OBJECTIVE: Vital Signs: Temperature 98.2 degrees, heart rate 89, respiratory rate 20, blood pressure 148/77, O2 saturation 95% on room air. General Examination: This is a chronically ill- appearing, 63-year-old, female lying in bed, in no acute distress. HEENT: Head is normocephalic and atraumatic. Neck: No JVD noted. No carotid bruits. No lymphadenopathy. No thyromegaly. Cardiovascular Examination: S1 and S2 heard. No murmurs, gallops, or rubs. Regular rate and rhythm. Respiratory Examination: Clear bilaterally to auscultation. No work of breathing or use of accessory muscles. Abdomen: Soft, nontender to palpation. Bowel sounds present. No organomegaly. Extremities: No clubbing, cyanosis, or edema. Peripheral pulses present in both legs. Neurological Examination: The patient has expressive aphasia. Does follow commands, though numbness in the right side of her body. Laboratory Data: Reviewed. ASSESSMENT AND PLAN: 1. Acute embolic cerebrovascular accident. Apparently, at this point, she has not had any more neurological symptoms. At this point, I do not know if the aphasia is from this cerebrovascular accident because we were informed by the emergency room staff that she had a prior cerebrovascular accident. There are no members of the family at bedside. The patient is not able to provide any pertinent information because of her aphasia. We will try to contact the rest of the family. We will instruct the nurse to help us locate a member of the family who can provide more information for her. Also, cardiology has been consulted for this condition. 2. Hyperlipidemia. We will continue with statin. 3. Diabetes mellitus type 2. We will continue with Accu-Cheks and sliding scale before meals and also at bedtime. 4. Gastroesophageal reflux disease. We will continue with the same management. cc: Rafat Manning MD
--- NOTE | 2019-04-25 14:39 | Diag Imaging Result Doc PS360 ---
EXAM: CT THORAX W/O CONTRAST HISTORY: SUSPECTED LUNG CANCER TECHNIQUE: Emergent CT of the chest without contrast COMPARISON: None. FINDINGS: No pleural effusions. The heart is mildly enlarged. No thoracic aortic aneurysm. No enlarged lymph nodes. No consolidation. No bronchiectasis. No lung mass identified. There is vascular distention. Small hiatal hernia. IMPRESSION: Mild pulmonary edema. This exam was performed using automated exposure control, adjustment of mA or kV according to patient size, and/or use of iterative reconstruction technique. Electronically signed by Karson Gomez 04/25/2019 2:36 PM
[2019-04-25] MEDS: LIPITOR PO SCH (21:52)
[2019-04-26] MEDS: NS 1,000 ML IV SCH ×2 (00:07→12:27)
[2019-04-26] MEDS ORDERED: APRESOLINE IV PRN (05:23)
[2019-04-26 06:45] LABS: HEMOGLOBIN 11.1 g/dL (12.0-16.0); MCHC 30.8 g/dL (33-37); MCV 84.3 FL (81-99); MPV 9.6 FL (7.4-10.4); RBC 4.27 XMIL (4.2-5.4); RDW 14.7 % (11.5-14.5); WBC 8.08 X1000 (4.8-10.8)
[2019-04-26 07:10] LABS: AGAP 12; BUN 7 mg/dL (8-22); CALCIUM 9.4 mg/dL (8.8-10.2); CHLORIDE 106 mmol/L (98-107); COSMO 281; CREATININE 0.5 mg/dL (0.5-0.9); ESTIMATED GFR > 60; GLUCOSE 139 mg/dL (70-104); POTASSIUM 3.8 mmol/L (3.5-5.1); SODIUM 141 mmol/L (136-145); TCO2 23 mmol/L (25-35)
[2019-04-26] MEDS: TOPROL XL PO SCH ×2 (09:42→21:44)
[2019-04-26] MEDS: ASPIRIN PO SCH (09:42)
[2019-04-26 11:59] LABS: URIC ACID 5.6 mg/dL (2.4-5.7)
[2019-04-26] MEDS: ALTACE PO SCH ×2 (12:27→21:44)
--- NOTE | 2019-04-26 12:32 | PROGRESS NOTE ---
DATE: 04/26/2019 SUBJECTIVE: The patient continues to be aphasic and answered to everything yes or no randomly. OBJECTIVE: Vital Signs: Temperature 98.5 degrees, heart rate 96, respiratory rate 20, blood pressure 171/88, O2 saturation is 96% on room air. General Examination: This is a chronically ill-appearing, 69-year-old, female lying in bed, in no acute distress. HEENT: Head is normocephalic and atraumatic. Mucous membranes are dry. Neck: No JVD noted. No carotid bruits. No lymphadenopathy. No thyromegaly. Cardiovascular Examination: S1 and S2 heard. No murmurs, gallops, or rubs. Regular rate and rhythm. Respiratory Examination: Clear bilaterally to auscultation. No work of breathing or using accessory muscles. Abdomen: Soft, nontender to palpation. Bowel sounds present. No organomegaly. Extremities: No clubbing, cyanosis, or edema. Peripheral pulses present in both legs. Neurological Examination: The patient has expressive aphasia. Does follow commands though. There is numbness in the right side of her body. Laboratory Data: Reviewed. ASSESSMENT AND PLAN: 1. Acute embolic cerebrovascular accident. Apparently, there have not been more neurological signs in this patient. Unfortunately, she is not able to provide any pertinent information and until this time, still working on trying to get a hold of a member of the family to provide more information about her. Apparently, she has had a stroke before. In any case, also cardiology has been consulted who are planning to talk with some member of the family in order to proceed for any possible transesophageal echocardiogram. In any case, we will continue working on it. 2. Hyperlipidemia. We will continue with the statin. 3. Diabetes mellitus type 2. We will continue with Accu-Cheks before meals and also sliding scale insulin as well. 4. Gastroesophageal reflux disease. We will continue with omeprazole. cc: Rafat Manning MD
--- NOTE | 2019-04-26 12:57 | CARDIOLOGY PROGRESS NOTE ---
DATE: 04/26/2019 CHIEF COMPLAINT: Aphasia, question of embolic stroke. SUBJECTIVE: Ms. Abrams does not seem to feel any different. Of note, we have checked some inflammatory markers. Her D-dimer was 1.63 mcg/mL. Her C-reactive protein was elevated at 123.3 mcg/L. Her serum embryonic antigen was 9.0, and her sedimentation rate was 43 mm per hour. This all suggested the presence of some sort of inflammatory process, and I have requested a CT of the chest that was done yesterday that shows "mild pulmonary edema." The patient really does not have any complaints of dyspnea at this time. OBJECTIVE: Blood pressure is 171/88, temperature 98.5, pulse 93, respirations 20. She is awake, alert, oriented, no distress. HEENT: Unremarkable. Chest: Sounds clear to auscultation and percussion. Heart: Sounds regular and rhythmic. Abdomen: Nontender. Extremities showed no edema. Neurologic: She continues to be aphasic with expressive aphasia. DIAGNOSTIC DATA: Her electrolytes today are normal. Yesterday I spoke with sister who came to visit, over the phone. She brought a binder with a lot of information pertaining to the patient prior medical history, and in none of those records is there any indication that this patient has had any heart disease. This sister is the closest relative that she has. IMPRESSION: 1. The patient presented with aphasia, question of embolic stroke. 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 2. Hypertension. 3. Diabetes mellitus type 2. 4. Inflammatory process of uncertain etiology. RECOMMENDATIONS: At this time, we will try to optimize the management of her systemic blood pressure since her systolic blood pressure has been running high. I am going to put her on ramipril 5 mg twice a day, double up on the metoprolol and amlodipine. I will discuss with the primary service and see if there is anything else that we need to do to figure out what may be going on with her. cc: Emanuel Christensen MD [facility]
[2019-04-26] MEDS: LIPITOR PO SCH (21:43)
[2019-04-27] MEDS: NS 1,000 ML IV SCH ×3 (00:48→14:29)
[2019-04-27 07:53] LABS: URINE SOURCE CATH
[2019-04-27 08:01] LABS: BILIRUBIN URINE NEGATIVE (NEGATIVE); BLOOD URINE NEGATIVE (NEGATIVE); COLOR YELLOW; GLUCOSE URINE NEGATIVE (NEGATIVE); KETONE URINE NEGATIVE (NEGATIVE); LEUKOCYTES URINE TRACE (NEGATIVE); NITRITE URINE NEGATIVE (NEGATIVE); PROTEIN URINE NEGATIVE (NEGATIVE); SP GRAVITY URINE 1.003; TURBIDITY URINE CLEAR (CLEAR); UROBILINOGEN URINE NORMAL (NORMAL)
[2019-04-27 08:02] LABS: UR EPITHELIAL CELLS <10 /HPF (<10); URINE BACTERIA NEGATIVE /HPF; URINE RBC <10 /HPF (<10)
[2019-04-27 08:17] LABS: HEMATOCRIT 35.3 % (37.0-47.0); HEMOGLOBIN 10.8 g/dL (12.0-16.0); MCH 25.7 PG (27-31); MCHC 30.6 g/dL (33-37); MCV 83.8 FL (81-99); MPV 9.6 FL (7.4-10.4); RBC 4.21 XMIL (4.2-5.4); RDW 14.8 % (11.5-14.5); WBC 7.43 X1000 (4.8-10.8)
[2019-04-27 08:35] LABS: AGAP 10; BUN 7 mg/dL (8-22); CHLORIDE 105 mmol/L (98-107); COSMO 278; CREATININE 0.6 mg/dL (0.5-0.9); ESTIMATED GFR > 60; GLUCOSE 140 mg/dL (70-104); POTASSIUM 3.8 mmol/L (3.5-5.1); SODIUM 139 mmol/L (136-145); TCO2 24 mmol/L (25-35)
[2019-04-27] MEDS: TOPROL XL PO SCH ×2 (09:33→21:51)
[2019-04-27] MEDS: ALTACE PO SCH ×2 (09:33→21:52)
[2019-04-27] MEDS: NORVASC PO SCH (09:33)
[2019-04-27] MEDS: ASPIRIN PO SCH (09:33)
--- NOTE | 2019-04-27 12:52 | PROGRESS NOTE ---
DATE: 04/27/2019 SUBJECTIVE: Ms. Abrams is a 63-year-old female who was admitted with expressive aphasia and new stroke. No new events were noted overnight by the nursing staff. The patient cannot give any true history, but she does not appear in any distress. OBJECTIVE: Vital signs: Blood pressure 151/70, heart rate 83, respiratory rate 22, O2 saturation 98% on room air, temperature is 97.8. General: A 63-year-old female lying in hospital bed in no acute distress. Neurologic: The patient has significant expressive aphasia and is able to state her name but not place or year. She does follow commands without focal deficits. HEENT: Head is atraumatic and normocephalic. Pupils are equal, round and reactive to light. Oral mucosa is moist. Trachea is midline. There is no JVD. Chest: Clear to auscultation. Cardiovascular: Regular rate and rhythm. S1 and S2 noted. No murmurs. GI: Soft, nondistended and nontender. Bowel sounds positive. Extremities: No edema, clubbing or cyanosis. Pulses are 1+ bilaterally. DIAGNOSTIC DATA: WBC is 7.43, hemoglobin 10.8, hematocrit 35.3, platelet count 454. Sodium 139, potassium 3.8, chloride 105, CO2 is 24, anion gap is 10, BUN is 7, creatinine 0.6, glucose 140, calcium 9. ASSESSMENT AND PLAN: 1. 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 Her neck CT did not show any acute obstruction, and echocardiogram was negative for any valve abnormality or cardiac masses. We are awaiting final recommendation by Cardiology as well as initial recommendation by Neurology. We will continue all the medications she is currently on. She is being followed by OT, Physical Therapy and Speech. 2. Hyperlipidemia. Continue statin. 3. Type 2 diabetes. Continue pattern blood sugars and sliding scale insulin. DISPOSITION: Pending evaluation by Neurology and possible COMFORT by Cardiology. Further recommendations to follow. Dictated by SOFI Morillo for Rafat Manning MD Addendum: Patient seen and examined by myself. Agree with SOFI note. It reflects my assessment and plan. cc: SOFI Morillo MD [facility]
--- NOTE | 2019-04-27 13:30 | CONSULTATION ---
DATE OF CONSULTATION: 04/27/2019 HISTORY: Ms Abrams is 63 years old, and it looks like she has had a stroke. There is significant dysphasia, limiting her ability to provide detailed history. I have reviewed the history recorded on admission reporting she was found wandering, unable to communicate, not clear there was initial significant focal motor deficit. She has been stable since admission. She has been afebrile. Heart rate has been stable, 80s-90s. Systolic blood pressures have ranged 150s to 200s. Noncontrast CT showed usual changes. Brain MRI showed old chronic changes, and some restricted diffusion consistent with new ischemic lesions in the left hemisphere, patchy subcortical areas. CT angiogram of the head and neck were unremarkable. Echocardiogram showed no source of embolus. Cardiology evaluation is in progress, and there is consideration for COMFORT. PAST MEDICAL HISTORY: Remarkable for hypertension, ischemic heart disease, and possible previous stroke. I do not have details of the previous stroke. PHYSICAL EXAMINATION: On exam, Ms. Abrams is awake, alert, and attentive. She seems cheerful. She said several words correctly. She had trouble with bedside language testing for naming parts of objects. She could not follow commands requiring right/left distinction and digit distinction. She told me her name correctly. I did not test reading or handwriting. Head and neck are unremarkable. Visual woodall are full tested by confrontational finger counting. Extraocular movements are full. Facial motility is good bilaterally. She has good power in the left limbs. On the right, I could overcome the deltoid grading 4+/5. She has equal power in the right and left tinner helper. She has good power in the right leg. Tone is very slightly increased in the right arm compared to the left. She did rapid alternating movements a little bit better with the left hand than the right. She did well with [id number] testing bilaterally. Her responses were equal and her report was that she sensed pinprick equally on the left and right over the hands and feet. She had some trouble with language, trying to identify up and down, and I think her responses on proprioception testing are not valid. Plantar response is clearly flexor on the left, and more equivocal on the right. I did not test her gait. IMPRESSION: 1. Dysphasia, possibly receptive more than expressive deficit and minimal right hemiparesis. This is consistent with a dominant left hemisphere syndrome. There is report of prior stroke, and I do not know whether that is recent or not. Also, I do not know what deficit, if any, was attributed to previous stroke. 2. She has risk factors for cerebrovascular ischemic problems including hypertension, heart disease, and possible previous stroke. 3. In light of the multifocal nature of the recent ischemic change on last MRI, COMFORT would be reasonable. Another option would be to repeat the CT angiogram since the initial CTA 4 days ago was reported suboptimal. Her creatinine is very good and I do not think the second dye load would be an unreasonable risk. 4. At this point, I do not have any other suggestion. I would continue treating blood pressure cautiously, continue hydration. Continue treating blood sugar and lipids aggressively. Continue DVT prophylaxis, and continue physical therapy with speech therapy. I would continue daily aspirin for now. Further plans will depend on results of further vascular workup, COMFORT and/or repeat brain CTA. Thanks for asking Neurology to see Ms. Abrams. cc: MD GENNA Haji III
--- NOTE | 2019-04-27 14:47 | Carotid Study ---
DATE: 04/24/2019 PROCEDURE: Carotid duplex imaging. REFERRING PHYSICIAN: Dr. Chacon INTERPRETING PHYSICIAN: Dr. Ricardo TECH: Jackson INDICATIONS: CVA and altered mental status. OBSERVED DATA RIGHT LEFT Brachial Blood Pressure Carotid Pulse Bruits: Carotid/Sub DIAGRAM OF ULTRASOUND IMAGING R L RIGHT INT EXT INT EXT LEFT Vega (cm/s) Vega (cm/s) Subclavian 77/0 Subclavian 110/1 CCA Proximal 49/10 CCA Proximal 89/12 CCA Distal 60/13 CCA Distal 73/14 Bulb 51/11 Bulb 52/11 ICA Proximal 53/17 ICA Proximal 45/14 ICA Mid 60/21 ICA Mid 55/16 ICA Distal 57/22 ICA Distal 40/16 ECA 104/8 ECA 92/15 Vertebral 41/11 Vertebral 42/7 ICA/CCA Ratio 1.01 ICA/CCA Ratio 0.62 % Stenosis 0 to 39 % Stenosis 0 to 39 PHYSICIAN INTERPRETATION: In the right carotid bulb, there is a very focal atherosclerotic area but no hemodynamically significant lesion noted in the bilateral carotid artery system. cc: MD Brandie Conde CRNP
[2019-04-27] MEDS: LOVENOX SUBQ SCH (19:26)
--- NOTE | 2019-04-27 21:38 | Diag Imaging Result Doc PS360 ---
CT ANGIOGRAM HEAD/NECK - 04/27/2019 INDICATION: embolic stroke, TECHNIQUE: Axial CT images were obtained after administering intravenous contrast. Coronal MIP images were generated. COMPARISON: 04/23/2019 FINDINGS: NECK: Normal aortic arch. Normal great vessel origins. The common carotid and subclavian arteries are patent. Both vertebral arteries are patent and codominant. There is no significant vascular disease of the carotid bulbs or extracranial internal carotid arteries. Head: There is severe vascular disease with heavy calcified plaque buildup at both intracranial vertebral arteries. This causes severe stenosis of about 75% bilaterally. The upper basilar artery also demonstrates significant stenosis from concentric plaque, with about 60% narrowing. Posterior cerebral artery anatomy is conventional arising from the basilar artery. The proximal and mid right posterior cerebral artery demonstrates significant smooth beaded irregularity consistent with vascular disease. There is moderate stenosis of about 50% narrowing. The proximal left posterior cerebral artery is extremely narrow in size, with over 80% stenosis. The reason is unclear. This could represent either vascular disease or vasculitis. The left intracranial internal carotid artery demonstrates multifocal rather severely calcified vascular plaque at the anterior clinoid process and the supraclinoid artery. There is significant stenosis of about 60% here, with both hard and soft plaque. The origin of the left middle cerebral artery is likewise extremely, smoothly narrowed. This is very similar to the posterior cerebral artery. This constitutes most of the M1 segment. More distally, the branches of the middle cerebral artery are patent. The anterior cerebral artery is patent. The right intracranial internal carotid artery likewise demonstrates some heavily calcified plaque at the supraclinoid artery. There is moderate stenosis of about 60% narrowing. The M1 segment of the right middle cerebral artery is also somewhat narrowed, by about 50%. This is smooth in contour. The anterior cerebral artery is patent and appears normal. IMPRESSION: Significant intracranial cerebrovascular disease. There is conventional disease of the carotid siphons with moderate stenosis. However there is more unusual vascular disease with smooth narrowings at the basilar artery, and both middle cerebral arteries, left greater than right. The smooth nature and lack of calcification is more suggestive of some vasculitis. This exam was performed using automated exposure control, adjustment of mA or kV according to patient size, and/or use of iterative reconstruction technique Electronically signed by Ranjit Parra 04/27/2019 9:36 PM
[2019-04-27] MEDS: LIPITOR PO SCH (21:52)
[2019-04-28] MEDS: NS 1,000 ML IV SCH (06:47)
[2019-04-28 08:03] LABS: HEMOGLOBIN 11.2 g/dL (12.0-16.0); MCHC 31.1 g/dL (33-37); MCV 83.7 FL (81-99); MPV 9.4 FL (7.4-10.4); RBC 4.3 XMIL (4.2-5.4); RDW 14.9 % (11.5-14.5); WBC 7.87 X1000 (4.8-10.8)
[2019-04-28 08:25] LABS: AGAP 10; BUN 7 mg/dL (8-22); CALCIUM 9.3 mg/dL (8.8-10.2); CHLORIDE 103 mmol/L (98-107); COSMO 276; CREATININE 0.5 mg/dL (0.5-0.9); ESTIMATED GFR > 60; GLUCOSE 140 mg/dL (70-104); SODIUM 138 mmol/L (136-145); TCO2 25 mmol/L (25-35)
--- NOTE | 2019-04-28 08:44 | CARDIOLOGY PROGRESS NOTE ---
DATE: 04/28/2019 CHIEF COMPLAINT: Aphasia, possible embolic stroke. SUBJECTIVE: Ms. Abrams appears to be unchanged. She is still aphasic and again, she answers with monosyllables. She is not in any discomfort right now. Training Instructor is at the bedside drawing blood. VITAL SIGNS: Blood pressure 135/60, temperature 99.3 degrees, pulse 87, respirations 18. GENERAL: She is awake, follows simple commands. HEENT: Unremarkable. CHEST: Clear to auscultation and percussion. HEART: Sounds regular and rhythmic. ABDOMEN: Nontender. EXTREMITIES: Showed no edema. NEUROLOGICAL: She is aphasic. Follows simple commands. Moves 4 extremities. She is not in distress or agitated. BLOOD WORK: Today, white cell count 7,430, hemoglobin 10.8. Sodium 139, potassium 3.8, BUN 70, creatinine 0.6. Her echocardiogram showed no evidence of valvular abnormalities of any significance. She had a hyperdynamic left ventricle done on April 23. ProBNP level was 110 picograms per mL. Her lipid panel showed LDL of 80, HDL of 41, total cholesterol 141. Her C- reactive protein significantly elevated at 123.3 mg per liter. Sedimentation rate elevated at 43 mm per hour. D-dimer elevated at 1.63 units, mcg/mL FU. Uric acid was 5.6. Hemoglobin A1c was 6.2%. Rheumatoid factor is negative. CPKs are negative. Troponins are negative. A CT of the head done yesterday shows significant intracranial cerebrovascular disease. There is moderate stenosis of the carotid cisterns; however, there is more unusual vascular disease with small narrowings at the basilar artery and both middle cerebral arteries, left greater than right. This calcification is more suggestive of some vasculitis. IMPRESSION: This patient probably has intracranial cerebrovascular pathology and not embolic stroke. RECOMMENDATIONS: At the present time, I will suggest to the primary service to investigate into the possibility of vasculitis. The patient may have to be referred to a tertiary center. As I said, this patient really needs to get a [id number] established by family. At this time, I do not have any further recommendations and I do not suggest to pursue COMFORT since my suspicion of endocarditis or cardiac pathology is minimal. Please call me if you have any further questions. cc: MD GENNA Meredith
[2019-04-28] MEDS: ASPIRIN PO SCH (08:53)
[2019-04-28] MEDS: NORVASC PO SCH (08:53)
[2019-04-28] MEDS: ALTACE PO SCH ×2 (08:53→21:32)
[2019-04-28] MEDS: TOPROL XL PO SCH ×2 (08:54→21:32)
--- NOTE | 2019-04-28 12:04 | PROGRESS NOTE ---
DATE: 04/28/2019 SUBJECTIVE: Ms. Abrams continues to improve a little bit from aphasia. Now, she is able to talk some phrases, and not answering yes or no to everything like she was doing a few days back. OBJECTIVE: Vital Signs: Temperature 97.3 degrees, heart rate 88, respiratory rate 17, blood pressure 146/70, O2 saturation 94% on room air. General: This is a chronically ill-appearing, 63- year-old, female lying in bed in no acute distress. Cardiovascular: S1, S2 heard. No murmurs, gallops, or rubs. Regular rate and rhythm. Respiratory: Clear bilaterally to auscultation. No work of breathing or using accessory muscles. Abdomen: Soft, nontender to palpation. Bowel sounds present. No organomegaly. Extremities: No clubbing, cyanosis, or edema. Peripheral pulses present in both legs. Neurologic: The patient has significant expressive aphasia. Follows commands without focal deficit. LABORATORY DATA: Reviewed. ASSESSMENT AND PLAN: 1. 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 The new CT of the head and neck, recommended by Neurology, did show significant intracranial cerebrovascular disease. There is conventional disease of the carotid arteries with moderate stenosis. There is also more than usual vascular disease with this narrowing of the basilar artery. At this point, Cardiology is not going to plan to do any transesophageal echocardiogram. Will see what Dr. Rivas has to say today. Will follow recommendations. 2. Hyperlipidemia. Will continue with statins. 3. Diabetes mellitus type 2. Will continue with sliding scale insulin and Accu- Chek before meals and also at bedtime. 4. Disposition. At this point, the patient is waiting for a rehab bed. Also at this point, will continue to follow recommendations from Neurology and Cardiology. Considering this possible vasculitis, I have consulted Dr. Garcia from Rheumatology to see if we can do anything for this patient. Then, if all subspecialist on board agree she can be discharged to [facility]. cc: Rafat Manning MD [facility] CENTERAnila
--- NOTE | 2019-04-28 16:18 | PROGRESS NOTE ---
DATE: 04/28/2019 ROOM: 324 A. Ms. Abrams has not had any clinical setback. She followed some simple commands a little bit better today than yesterday. She was better with commands requiring digit distinction today but still could not follow right/left commands. I do not see any new focal deficit. Repeat CT angiogram shows some stenosis in several of the major intracranial vessels including the left middle cerebral artery which may be symptomatic. There is concern for vasculitis, either a primary angiitis of the central nervous system or secondary vasculitis. Another definite possibility is that the CTA interpretation is not warranted by the findings. She does not appear to have a clinical syndrome of vasculitis. I think it would be reasonable to consider referral for elective cerebral angiogram. If that cannot be accomplished soon, or if she deteriorates clinically, we might need to consider immunosuppressant medication. Today, clinically, she seems to be stable and improved with a single event, multiple small acute ischemic infarctions in the dominate left hemisphere but still just 1 clinical episode confined to one vascular territory. I think we can continue managing as we were doing and arrange for outpatient referral for consideration of conventional cerebral angiogram when she is ready for discharge here. Thanks for asking Neurology to see Ms. Abrams. cc: MD GENNA Haji III
[2019-04-28] MEDS: LOVENOX SUBQ SCH (18:28)
[2019-04-28 18:43] LABS: URINE SOURCE CLEAN CATCH
[2019-04-28 18:52] LABS: BILIRUBIN URINE NEGATIVE (NEGATIVE); BLOOD URINE MODERATE (NEGATIVE); COLOR STRAW; GLUCOSE URINE NEGATIVE (NEGATIVE); KETONE URINE NEGATIVE (NEGATIVE); LEUKOCYTES URINE TRACE (NEGATIVE); NITRITE URINE NEGATIVE (NEGATIVE); PROTEIN URINE NEGATIVE (NEGATIVE); TURBIDITY URINE CLEAR (CLEAR); UROBILINOGEN URINE NORMAL (NORMAL)
[2019-04-28 18:55] LABS: UR EPITHELIAL CELLS <10 /HPF (<10); URINE BACTERIA NEGATIVE /HPF; URINE RBC <10 /HPF (<10); URINE WBC <10 /HPF (<10)
--- NOTE | 2019-04-28 20:50 | Diag Imaging Result Doc PS360 ---
EXAM: CT ABDOMEN/PELVIS W/O CONTRAST - 04/28/2019 HISTORY: r/o abd mass TECHNIQUE: CT abdomen/pelvis without contrast. No contrast administered per request the referring provider. COMPARISON: None. FINDINGS: There is limitation of detail due to the lack of administered contrast. There is an apparent large cystic mass in the abdomen and upper pelvis. There is some free fluid in the abdomen or pelvis. The free fluid has density similar to the apparent cystic mass, which makes it somewhat difficult to distinguish between the cystic mass and the free fluid. There is soft tissue thickening at the lower anterior abdominal wall deep subcutaneous fat which may relate to scarring or soft tissue mass. There are no substantial abnormalities of the liver, spleen, adrenal glands, pancreas, or gallbladder identified. There is no renal stone or hydronephrosis identified. There are nonspecific small retroperitoneal lymph nodes. There is no evidence of bowel obstruction. There is no free air or abscess identified. IMPRESSION: Limitation of detail due to the lack of administered contrast. Apparent large cystic mass in the abdomen and upper pelvis. Free fluid. Soft tissue thickening at the midline lower anterior abdominal wall deep subcutaneous fat which may relate to scarring or mass lesion. This exam was performed using automated exposure control, adjustment of mA or kV according to patient size, and/or use of iterative reconstruction technique. Electronically signed by Jake Jackson 04/28/2019 8:48 PM
[2019-04-28] MEDS: LIPITOR PO SCH (21:32)
[2019-04-29 07:51] LABS: HEMATOCRIT 35.1 % (37.0-47.0); HEMOGLOBIN 10.6 g/dL (12.0-16.0); MCH 26.2 PG (27-31); MCHC 30.2 g/dL (33-37); MCV 86.7 FL (81-99); MPV 9.5 FL (7.4-10.4); RBC 4.05 XMIL (4.2-5.4); RDW 14.9 % (11.5-14.5); WBC 8.66 X1000 (4.8-10.8)
[2019-04-29 08:17] LABS: AGAP 9; BUN 11 mg/dL (8-22); CALCIUM 9.7 mg/dL (8.8-10.2); CHLORIDE 101 mmol/L (98-107); COSMO 281; CREATININE 0.6 mg/dL (0.5-0.9); ESTIMATED GFR > 60; GLUCOSE 175 mg/dL (70-104); SODIUM 139 mmol/L (136-145); TCO2 29 mmol/L (25-35)
[2019-04-29] MEDS: ALTACE PO SCH ×2 (09:20→21:15)
[2019-04-29] MEDS: TOPROL XL PO SCH ×2 (09:20→21:15)
[2019-04-29] MEDS: ASPIRIN PO SCH (09:20)
[2019-04-29] MEDS: NORVASC PO SCH (09:21)
--- NOTE | 2019-04-29 15:35 | HEMO/ONC CONSULTATION ---
DATE: 04/29/2019 REASON FOR CONSULTATION: Abdominal CT showed a large cystic mass in the abdomen and upper pelvis. HISTORY OF PRESENT ILLNESS: Josefa Abrams is a 63-year-old female with a medical history of speech impediment, coronary artery disease with stents and previous stroke history. It is apparent that Ms. Abrams had a stroke somewhere around April 23 and has been subsequently receiving treatment in the hospital since then. At the time she came in, she was having difficulty communicating and her history was vague. On April 28, an abdominal CT and pelvis were performed without contrast, which showed an apparent large cystic mass in the abdomen and upper pelvis that is new to the patient. PAST MEDICAL HISTORY: 1. Osteoarthritis. 2. Hypertension. 3. GERD. 4. Speech impediment. 5. Coronary artery disease. 6. Diabetes. 7. Hyperlipidemia. PAST SURGICAL HISTORY: 1. Left total knee arthroplasty. 2. Left carpal tunnel release. SOCIAL HISTORY: Denies tobacco, alcohol, or illicit drug use. ALLERGIES: Sulfa. HOME MEDICATIONS: Simvastatin, meclizine, metformin, lisinopril, and Toprol-XL. REVIEW OF SYSTEMS: Negative except what is provided in HPI. PHYSICAL EXAMINATION: Vital Signs: Temperature 98.5 degrees, pulse rate 106, respiratory rate 22, blood pressure 141/100, O2 saturation 99% on room air. 0/10 pain. General: A 63-year-old female, lying in hospital bed, slumped to the right and attempting to eat her breakfast. She did not conversate except to answer yes and no. Neurological: The patient had significant expressive aphasia. She does follow commands without focal deficit. HEENT: Pupils are equal, round and reactive to light. Oral mucosa is moist. Neck: No JVD. Respiratory: Clear to auscultation. Cardiovascular: Regular rate and rhythm. S1 and S2 noted. Abdominal: Soft, nondistended, nontender. Vague mass palpated in the lower abdomen. Extremities: No edema. Able to move all extremities on command. LABORATORY DATA: White blood cells 8.66, hemoglobin 10.6, hematocrit 35.1, platelet count 427,000. DIAGNOSTIC DATA: Yesterday's abdominal CT shows an apparent large cystic mass in the abdomen and upper pelvis, free fluid. Chest CT shows mild pulmonary edema. Head and neck CT shows significant intracranial cerebrovascular disease. ASSESSMENT: 1. 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 2. Hyperlipidemia. 3. Type 2 diabetes. 4. Abdominal mass. PLAN: The patient is not known to us. We are being consulted to review a new pelvic mass found in the abdomen of the patient. At this time, it does not seem to be causing her any problems. When patient is discharged, we will follow up with her. We will run a CA125. Once released we will consider a PET scan and vaginal ultrasound. From there we will consider management accordingly. Thank you for consulting us regarding this patient. Dictated by SOFI Nicholson for Avery Nunez MD cc: Avery Nunez MD MTDD
[2019-04-29] MEDS: LOVENOX SUBQ SCH (15:42)
[2019-04-29 16:45] LABS: URINE SOURCE CATH
[2019-04-29 16:55] LABS: BILIRUBIN URINE NEGATIVE (NEGATIVE); BLOOD URINE SMALL (NEGATIVE); COLOR STRAW; GLUCOSE URINE NEGATIVE (NEGATIVE); KETONE URINE NEGATIVE (NEGATIVE); LEUKOCYTES URINE NEGATIVE (NEGATIVE); NITRITE URINE NEGATIVE (NEGATIVE); PH URINE 6.5; PROTEIN URINE NEGATIVE (NEGATIVE); TURBIDITY URINE CLEAR (CLEAR); UROBILINOGEN URINE NORMAL (NORMAL)
[2019-04-29 16:57] LABS: UR EPITHELIAL CELLS <10 /HPF (<10); URINE BACTERIA NEGATIVE /HPF; URINE RBC <10 /HPF (<10); URINE WBC <10 /HPF (<10)
--- NOTE | 2019-04-29 17:59 | PROGRESS NOTE ---
DATE: 04/29/2019 INTERVAL HISTORY: A CT scan of the abdomen and pelvis was obtained for an abdominal mass which was noted during nursing assessment, which had detected a huge pelvic mass. SUBJECTIVE: The patient does have expressive aphasia. She follows simple commands most of the times, but at times responds inappropriately and then starts tapping me on my back, almost beating me. She does not answer questions appropriately, and she repeat whatever I ask her to in question. OBJECTIVE: Vital Signs: Temperature 98.5 degrees, pulse 88, respiratory rate 16, blood pressure 140/80, saturating 95% on room air. General: She does not appear in any acute distress. HEENT: Oral cavity is moist. Lungs: Air entry bilaterally equal. No wheeze, rhonchi, or crackles. Cardiovascular: S1 and S2 normal. No murmur, rub, or gallop. Abdomen: Soft. When I try to palpate her she starts beating me. It is possible that she is in pain especially in the lower abdominal quadrant. It is tympanic to percussion most part except lower abdominal quadrant especially right side where it is dull to percussion. Extremities: She does not have bilateral lower extremity edema. Neurologic: She is alert. She is not answering questions related to orientation. She is tracking to both sides of the midline. Pupils are bilaterally equal and reacting to light. She is raising both upper and lower extremities above ground level. She is currently irritated and does not answer questions appropriately. LABORATORY DATA: Labs suggestive of normocytic anemia, thrombocytosis, normal kidney function. MICROBIOLOGY: Urine culture blood culture does not have any growth. ASSESSMENT AND PLAN: 1. Acute left middle cerebral artery stroke as reported on magnetic resonance image of brain with extensive chronic ischemic microvascular changes, with head and neck computed tomography angiography detecting significant intracranial left middle cerebral artery vascular disease with suspicion of vasculitis. Continue the patient on aspirin and high-dose statin. Continue physical therapy and speech evaluation and advance diet as tolerated. Unfortunately, Rheumatology Services which were requested is not available until 2 more weeks. Cardiology was consulted and currently thinks that she may not have embolic source of her cerebrovascular accident. I will continue her on home metoprolol and ramipril. 2. Pelvic mass. This could be an undiagnosed gynecological neoplasm considering the fact that a lot of times they present with ischemic stroke. Oncology has been consulted and CA-125 has been ordered. The patient may need outpatient Gynecology/Oncology evaluation once when she recovers and her functional status because becomes appropriate. I will try to reach out to the patient's family to discuss about this. 3. Others. Continue amlodipine and ramipril for essential hypertension, along with metoprolol. 4. Disposition. I am awaiting CA-125 which has been ordered, and depending on that my plan is to discharge her to rehabilitation hopefully in next 24-48 hours. We have also had issues with the surrogate decision maker, and I would involved Palliative Care team to help him with that. Plan of care discussed with the nursing team. I will also start her on tamsulosin for urinary retention. cc: Hitesh Portillo MD
[2019-04-29] MEDS: FLOMAX PO SCH (21:15)
[2019-04-29] MEDS: LIPITOR PO SCH (21:15)
--- NOTE | 2019-04-30 00:27 | CONSULTATION ---
DATE OF CONSULTATION: 04/29/2019 REASON FOR CONSULTATION: Urinary retention. HISTORY OF PRESENT ILLNESS: A 63-year-old female who was admitted to the hospital on 04/23/2019 secondary to expressive aphasia and concern for stroke. Please note, the patient continues to have aphasia and is not a reliable historian, hence the majority of the history is obtained per records. She does seem to understand my questions well and denies significant urologic issues in the past. She denies urinary incontinence, gross hematuria, or recurrent UTIs. She currently agrees that she has voided on her own and does not have a catheter in place. PAST MEDICAL HISTORY: Hypertension, GERD, osteoarthritis, coronary artery disease, diabetes, hyperlipidemia, cerebral vascular accident. PAST SURGICAL HISTORY: Carpal tunnel release, knee arthroplasty, cholecystectomy, appendectomy. SOCIAL HISTORY: Denies tobacco, alcohol or illicit drug use. ALLERGIES: Sulfa. HOME MEDICATIONS: Simvastatin, meclizine, metformin, lisinopril, Toprol-XL. REVIEW OF SYSTEMS: Unobtainable secondary to the patient's aphasia, but again, she denied gross hematuria. PHYSICAL EXAMINATION: VITAL SIGNS: T 98.5 degrees, P 106, BP 141/100. General: Pleasant female in no acute distress. HEENT: Normocephalic, atraumatic. Cardiovascular: Regular rhythm. Pulmonary: Bilateral breath sounds. Abdomen: Protuberant, nontender to palpation. Back: No CVA tenderness. Genitourinary: Bladder is nontender to palpation. Pelvic examination was deferred at this time. Lymphatic: No groin lymphadenopathy. Skin: No obvious skin rashes. Psychiatric: Appropriate mood and affect. PERTINENT LABORATORY DATA: White cell count of 9000. Creatinine is 0.6. PERTINENT IMAGES: CT of the abdomen and pelvis on 04/28/2019 with a report of large cystic mass involving the abdomen and pelvis. ASSESSMENT/PLAN: A 63-year-old female with recent stroke who has expressive aphasia. Per record review, she has been voiding on her own. She did have reported bladder scan of 543 mL on 04/29/2019. She also has a record of having straight catheterization performed with 100 mL of urine obtained, and after she voided on her own, hence corresponding to postvoid residual of 100. I have discussed with the patient that with the stroke she may have variable postvoid residuals. She has been able to void, and per last in out catheterization, did not have that much in her bladder. I have discussed with the patient that placing her on medications such as Flomax would be of no use, and if she had consistently elevated residuals and was unable to void, she would benefit from regular intermittent catheterization versus indwelling Ruelas catheter for some time. I have discussed with the patient it may take up to 12 weeks for the bladder to recover post stroke. At this time, I would advise against the patient having indwelling Ruelas catheter, and she does not wish to have it either. I feel that she likely empties on her own and recommend obtaining postvoid residual checks tomorrow and the following day. It could also be that the cystic mass in her pelvis led to a false positive result on the bladder scanner. PLAN: I do not recommend indwelling Ruelas catheter or regular intermittent catheterization. We will recheck postvoid residual tomorrow and if it continues to be acceptable, as in less than 300 mL, I would recommend for patient to void on her own and allow her bladder to recover, as she does so from the stroke. Thank you for consultation. Will follow up tomorrow on the postvoid residual. cc: Dale Smiley MD
[2019-04-30] MEDS: ASPIRIN PO SCH (08:52)
[2019-04-30] MEDS: ALTACE PO SCH ×2 (08:52→21:00)
[2019-04-30] MEDS: TOPROL XL PO SCH ×2 (08:52→21:01)
[2019-04-30] MEDS: NORVASC PO SCH (08:52)
--- NOTE | 2019-04-30 13:52 | PROGRESS NOTE ---
DATE: 04/30/2019 Ms. Abrams remains awake and alert. She reports no headache. On bedside language testing, things are about the same as yesterday, but she did a little bit better with more consistent correct responses on testing digit distinction today. She still was not able to follow commands requiring right/left distinction. I do not see any new neurologic deficit. Workup for pelvic mass is in progress. She had a noncontrast brain MRI a week ago. Depending on her clinical course and results of other workup, we might consider repeating MRI with contrast electively, not urgent. I do not have any new suggestion regarding the question of vasculitis raised on CT angiogram report. Thanks for asking Neurology to see Ms. Abrams. cc: Christine Rivas III, MD MTDD
[2019-04-30] MEDS: LOVENOX SUBQ SCH (15:38)
[2019-04-30] MEDS: LIPITOR PO SCH (21:01)
[2019-04-30] MEDS: FLOMAX PO SCH (21:01)
--- NOTE | 2019-04-30 21:49 | PROGRESS NOTE ---
DATE: 04/30/2019 INTERVAL HISTORY: No acute event overnight. SUBJECTIVE: The patient denies any new complaints. PHYSICAL EXAMINATION: Vital signs: Temperature 97.9 degrees, pulse 91, respiratory rate of 20, blood pressure of 130/61, saturating 94% on room air. General: The patient does not appear in any acute distress. HEENT: Oral cavity is moist. Lungs: Air entry bilaterally equal. No wheeze, rhonchi, or crackles. Cardiovascular: S1, S2 normal. No murmur or gallop. Abdomen: Soft, nontender. Extremities: No lower extremity edema except mild edema extending up to mid gallagher level. Neurologic: She is alert. She does have some expressive aphasia. She is following simple commands like opening mouth, raising both of her hands, raising both of her upper extremities and lower extremities. She does not have any obvious facial droop. She, however, appears to have some weakness of the right upper and lower extremities as compared to the left, with power 4/5 on the right and 5/5 on the left. LABORATORIES: No CBC or BMP today. ASSESSMENT AND PLAN: 1. Acute left middle cerebral artery stroke with extensive chronic ischemic microvascular changes, with left middle cerebral artery vascular disease with suspicious suspicion of vasculitis. Continue patient on aspirin and high-dose statin. Continue physical therapy and speech evaluation, and I will advance diet as tolerated. Continue her on metoprolol and ramipril for essential hypertension. 2. Pelvic mass with elevated CA-125 with high suspicion of gynecological malignancy which may present with ischemic stroke. She would need vaginal ultrasound and outpatient gynecology oncology evaluation when she recovers from her stroke. I have informed this about patient's sister. 3. Others. Continue amlodipine, ramipril, and metoprolol for essential hypertension. Continue enoxaparin for DVT prophylaxis and tamsulosin for urinary retention. 4. Disposition. It looks like surrogate decision paper will be signed by the patient's sister today, and depending on that, we are awaiting discharge to [facility], which I anticipate early next week. Plan of care discussed with the patient and the patient's sister yesterday, and all of their questions have been answered. cc: Hitesh Portillo MD
[2019-05-01] MEDS: TOPROL XL PO SCH ×2 (09:32→20:14)
[2019-05-01] MEDS: ASPIRIN PO SCH (09:32)
[2019-05-01] MEDS: ALTACE PO SCH ×2 (09:32→20:14)
[2019-05-01] MEDS: NORVASC PO SCH (09:32)
--- NOTE | 2019-05-01 16:39 | PROGRESS NOTE ---
DATE: 05/01/2019 INTERVAL HISTORY: No acute event overnight. SUBJECTIVE: Patient denies any new complaints. VITALS: Temperature 98.3 degrees, pulse 91 respiratory 20 blood pressure 147/70, and saturating 96% on room air. PHYSICAL EXAMINATION: General: Does not appear in any acute distress. HEENT: Oral cavity is moist. No wheeze, rhonchi, or crackles. Cardiovascular: S1, S2 normal. No murmur or gallop. Abdomen: Soft and nontender. Extremities: Mild lower extremity edema extending up to midshin level. Neurologic: She is alert. She is answering simple questions like hello and bye, but she does have expressive aphasia and does not have sentence formation while speaking. She is following simple commands like opening mouth, raising both hands, and raising both upper and lower extremities above ground level. However, on power testing, she does have slightly diminished power on the right shoulder as compared to left. No obvious facial droop. There is no slurring of the speech, except aphasia and paresthesia. LABORATORY: No labs today. ASSESSMENT AND PLAN: 1. Acute left MCA stroke with extensive chronic ischemic microvascular changes with left MCA vascular disease and suspicion of vasculitis. Continue aspirin, high-dose statin, physical therapy, speech evaluation and current diet. Continue metoprolol and ramipril for essential hypertension. She should get outpatient rheumatology evaluation. In the future, for workup of vasculitis, however, my suspicion is less. 2. Pelvic mass with elevated CA-125 with high suspicion of gynecologic malignancy which often times presents with ischemic strokes. She would need outpatient vaginal ultrasound and outpatient Gynecology Oncology evaluation when she recovers from stroke or possible evaluating the need for surgery. 3. Others. Continue amlodipine, ramipril and metoprolol for essential hypertension, enoxaparin for DVT prophylaxis and tamsulosin for urinary retention. She has not had urinary retention in the last 24 hours. 4. Disposition. The patient's surrogate decision maker is to sign a consent form. Accordingly, the plan is to discharge her to rehab early next week. Plan of care discussed with nursing team. cc: MD GENNA Hastings
[2019-05-01] MEDS: LOVENOX SUBQ SCH (16:49)
[2019-05-01] MEDS: FLOMAX PO SCH (20:14)
[2019-05-01] MEDS: LIPITOR PO SCH (20:14)
[2019-05-02] MEDS: ALTACE PO SCH ×2 (08:20→19:59)
[2019-05-02] MEDS: NORVASC PO SCH (08:20)
[2019-05-02] MEDS: ASPIRIN PO SCH (08:20)
[2019-05-02] MEDS: TOPROL XL PO SCH ×2 (08:20→20:00)
--- NOTE | 2019-05-02 14:55 | PROGRESS NOTE ---
DATE: 05/02/2019 INTERVAL HISTORY: No acute event overnight. The patient's neighbor is at bedside. I discussed with her about examination finding, and answered all of her questions. No other acute events overnight. OBJECTIVE: Vital Signs: Temperature 98 degrees, pulse 88, respiratory rate 14, blood pressure 133/73, saturating 95% room air. General: Does not appear in acute distress. HEENT: Oral cavity is moist. Lungs: No wheeze, rhonchi, crackles. Cardiovascular: S1, S2 normal. No murmur or gallop. Abdomen: Soft, nontender. Extremities: Mild bilateral lower extremity edema. Neurologic: She is alert. She is opening her mouth, raising eyebrows, smiling for me, raising both upper and lower extremities above ground level. However, she does have expressive aphasia and paraphasia. She is not able to perform cerebellar test appropriately. No obvious facial droop. She answers question in simple words, but usually has paraphasia. LABORATORY DATA: No labs today, except ESR and CRP, which are extremely elevated. MICROBIOLOGY: No new microbiological data. IMAGING: No new imaging. ASSESSMENT AND PLAN: 1. Acute left middle cerebral artery stroke with extensive chronic microvascular ischemic changes involving the left middle cerebral artery territory with suspicion of vasculitis. Continue aspirin, high-dose statin, physical therapy, speech evaluation. Continue metoprolol, ramipril for essential hypertension. Outpatient Rheumatology evaluation and workup for vasculitis in the future. She does have elevated inflammatory markers. Antinuclear antibody is in lab. I will follow up with the results. 2. Pelvic mass with elevated CA-125 with high suspicion of gynecologic malignancy, which often times presents as ischemic stroke. She would need outpatient vaginal ultrasound and Gynecology Oncology evaluation when she recovers from her stroke, and discuss about surgical options. Considering her recent stroke, she may not be a candidate for an urgent surgery. 3. Continue amlodipine, ramipril, metoprolol for essential hypertension, enoxaparin for deep venous thrombosis prophylaxis, tamsulosin for urinary retention. 4. Disposition. We are awaiting paperwork as well as bed availability at [facility], and I am anticipating discharge tomorrow. Plan of care was discussed with the patient and her neighbor at bedside. All of their questions have been answered. cc: Hitesh Portillo MD
[2019-05-02] MEDS: LOVENOX SUBQ SCH (17:53)
[2019-05-02] MEDS: FLOMAX PO SCH (19:59)
[2019-05-02] MEDS: LIPITOR PO SCH (19:59)
[2019-05-03] MEDS: NORVASC PO SCH (08:46)
[2019-05-03] MEDS: ALTACE PO SCH ×2 (08:46→21:23)
[2019-05-03] MEDS: ASPIRIN PO SCH (08:46)
[2019-05-03] MEDS: TOPROL XL PO SCH ×2 (08:46→21:23)
--- NOTE | 2019-05-03 14:48 | PROGRESS NOTE ---
DATE: 05/03/2019 INTERVAL HISTORY: No acute events. SUBJECTIVE: Patient appears pleasant. Denies any complaints. Follows commands and allows physical examination. VITAL SIGNS: Temperature 97.4 degrees, pulse 86, respiratory rate 14, blood pressure 145/66, saturating 96% on room air. OBJECTIVE: General: She does not appear in any acute distress. HEENT: Oral cavity is moist. Respiratory: No wheeze, rhonchi, or crackles. Cardiovascular: S1, S2 normal. No murmur or gallop. Abdomen: Soft, nontender. Extremities: Mild bilateral lower extremity edema. Neurologic: She is alert. She does have aphasia and paraphasia but she is able to follow commands. She is opening her mouth, raising both eyebrows, smiling for me, raising both upper and lower extremities above ground level. She is able to walk without anyone's help. She is not able to perform cerebellar function test appropriately and has dysdiadochokinesia. No obvious facial droop. LABORATORY DATA: Her CRP and ESR are elevated. Her NARENDRA screen is negative. ASSESSMENT AND PLAN: 1. Acute left middle cerebral artery stroke with extensive chronic microvascular ischemic changes involving left middle cerebral artery territory with suspicion of mass vasculitis. Continue aspirin, high-dose statin, physical therapy, speech evaluation. Continue metoprolol and ramipril for essential hypertension. Outpatient Rheumatology evaluation since her ESR and CRP are elevated, though antinuclear antibody screen is negative. We will send her to rehab whenever there is a bed availability. 2. Pelvic mass with slightly elevated CA-125 with suspicion of gynecologic malignancy which can present with ischemic stroke. She will need outpatient workup including a PET scan, gynecology oncology evaluation, and possible surgical intervention. 3. Continue amlodipine in addition to ramipril and metoprolol for essential hypertension; enoxaparin for deep venous thrombosis prophylaxis; tamsulosin for urinary retention. 4. Disposition. I am awaiting a bed at a rehab facility. [facility] could not take the patient considering she might have to go to residential facility or correction facility afterwards. Plan of care discussed with the patient's neighbor yesterday and I had answered all of their questions. cc: Hitesh Portillo MD
--- NOTE | 2019-05-03 16:03 | PROGRESS NOTE ---
DATE: 05/03/2019 SUBJECTIVE: Ms. Abrams has persistent dysphasia. She is not able to comprehend detailed discussion of her medical care and therefore cannot make informed decisions. For this reason, I signed the surrogate form granting that authority to another. I do not have any other suggestion from Neurology standpoint right now. Thanks for asking us to see Ms. Abrams. cc: MD GENNA Haji III
[2019-05-03] MEDS: LOVENOX SUBQ SCH (16:38)
[2019-05-03] MEDS: LIPITOR PO SCH (21:23)
[2019-05-03] MEDS: FLOMAX PO SCH (21:23)
[2019-05-04] MEDS: TOPROL XL PO SCH ×2 (08:59→21:47)
[2019-05-04] MEDS: NORVASC PO SCH (09:00)
[2019-05-04] MEDS: ASPIRIN PO SCH (09:00)
[2019-05-04] MEDS: ALTACE PO SCH ×2 (09:00→21:47)
--- NOTE | 2019-05-04 14:34 | PROGRESS NOTE ---
DATE: 05/04/2019 INTERVAL HISTORY: No acute event overnight. SUBJECTIVE: The patient is resting in the bed, does not appear in any acute distress. Bedside monitor has normal sinus rhythm. OBJECTIVE: Vital Signs: Temperature 98.8 degrees, pulse 92, respiratory rate 17, blood pressure 120/59, saturating 94% on room air. General: Does not appear in any acute distress. HEENT: Oral cavity is moist. Lungs: Air entry bilaterally equal. No wheeze, rhonchi, or crackles. Cardiovascular: S1, S2 normal. No murmur, rub, or gallop. Appears regular. Abdomen: Soft, nontender. Extremities: No lower extremity edema. Neurologic: She is alert. She has aphasia and paraphasia, but she is able to follow commands like opening mouth, forwarding her hands for pulse checks. She is raising both eyebrows equally, and smiling equally on both sides of the midline. She is able to raise both upper and lower extremities above ground level. However, there is relative weakness on the right shoulder joint flexion as compared to left. LABORATORY DATA: No new lab data today. MICROBIOLOGY: No new data. IMAGING: No data. ASSESSMENT AND PLAN: 1. Acute left middle cerebral artery stroke with extensive chronic microvascular ischemic changes involving left middle cerebral artery territory with suspicion of vasculitis. Continue aspirin, high-dose statin, physical therapy, speech evaluation. Continue metoprolol intravenously for essential hypertension, and outpatient Rheumatology evaluation since her ESR and CRP are elevated, though her antinuclear antibody screen was negative. We are awaiting rehab placement. 2. Pelvic mass with slightly elevated CA-125, with suspicion of gynecologic malignancy, which can present with ischemic stroke. She will need outpatient workup, including vaginal ultrasound and Oncology evaluation for possible surgical intervention once she recovers from her stroke. 3. Essential hypertension, well controlled on amlodipine, ramipril, and metoprolol. 4. Continue enoxaparin for deep venous thrombosis prophylaxis. 5. Continue tamsulosin for urinary retention. 6. Disposition. We are awaiting insurance authorization for transfer to rehab. 7. Plan of care. The patient's sister has been kept informed about her medical course, and all of her questions have been answered by multiple members of the team, including social media senior associate. I called her and she did not fruit picker . There was no option for leaving a voice message. cc: Hitesh Portillo MD MTDD
[2019-05-04] MEDS: LOVENOX SUBQ SCH (15:15)
[2019-05-04] MEDS: LIPITOR PO SCH (21:47)
[2019-05-04] MEDS: FLOMAX PO SCH (21:47)
[2019-05-05] MEDS: ALTACE PO SCH (09:00)
[2019-05-05] MEDS: TOPROL XL PO SCH (09:01)
[2019-05-05] MEDS: NORVASC PO SCH (09:01)
[2019-05-05] MEDS: ASPIRIN PO SCH (09:01)
[2019-05-05] MEDS: LOVENOX SUBQ SCH (15:10)
[2019-05-05 16:09] VITALS: BP 122/61
--- NOTE | 2019-05-05 16:13 | PROGRESS NOTE ---
DATE: 05/05/2019 SUBJECTIVE: No acute event overnight. She denies any new complaints. VITALS: Temperature 98.2 degrees, pulse 89, respiratory rate 14, blood pressure 110/59, saturating 99% on room air. PHYSICAL EXAMINATION: She is alert. She is pleasant.Lungs: Air entry bilaterally equal. No wheeze, rhonchi, crackles. Cardiovascular: S1, S2 normal. No murmur or gallop. Abdomen: Soft. She does have a lower abdominal mass, which is dull to percussion, especially right lower quadrant. Extremities: No lower extremity edema. Neurologic: She is following simple commands. She is walking in the hallway without anyone's support. She does have pretty significant aphasia. She is able to answer in yes and no. LABS: No new labs today. ASSESSMENT/PLAN: I agree with most components of discharge summary dictated by nurse practitioner. In brief Ms. Conde came in with left middle cerebral artery stroke and she is going to be discharged on aspirin, statin, GUILLERMINA inhibitors. She has this new diagnosis of pelvic mass which is mostly arising from uterus, ovary, or fallopian tube and she would need outpatient gynecology and oncology evaluation. Considering she has had recent stroke, she may not be a candidate for urgent surgery. However, she would certainly need oncology evaluation as an output as an outpatient. The patient is okay to be discharged to rehab. >30 minutes have been spent in preparing this discharge summary. cc: Hitesh Portillo MD MTDD
--- NOTE | 2019-05-05 17:19 | DISCHARGE SUMMARY ---
ADMISSION DATE: 04/23/2019 DISCHARGE DATE: 05/05/2019 ADMISSION DIAGNOSES: 1. 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 3. Gastroesophageal reflux disease. 4. Hypertension. 5. Hyperlipidemia. 6. Diabetes mellitus, type 2. DISCHARGE DIAGNOSES: 1. Acute left middle cerebral artery stroke with extensive chronic microvascular ischemic changes involving left middle cerebral artery territory with suspicion of vasculitis, was continued on aspirin, high-dose statin, physical therapy, speech therapy. 2. Elevated ESR and CRP. Will follow up with Rheumatology evaluation as outpatient. 3. Hypertension. Continue on metoprolol. Well controlled on amlodipine, ramipril and metoprolol. 4. Pelvic mass with slightly elevated CA-125 suspicious of gynecologic malignancy which can actually present with ischemic stroke. She will need to follow up as an outpatient with Oncology and SENIOR PROJECT CONTROLS SPECIALIST. 5. Urinary retention. Continue tamsulosin. CONSULTATIONS: 1. Emanuel Christensen MD for embolic CVA. 2. Christine Rivas III, MD for ischemic stroke vasculitis. 3. Ramon Kraft IV, MD for vasculitis and CTA of the head and recent stroke. 4. Anil Morgan MD for urinary retention. 5. Avery Nunez MD for new pelvic mass. 6. Tamera Smiley MD for urinary retention. SURGERIES AND PROCEDURES: None. HOSPITAL COURSE: On 04/23/2019, Ms. Josefa Abrams, a 63-year-old female, was found wandering in her doctor's parking lot but did not have an appointment. Third libertarian information received from the nurses that apparent the neighbor had stated that on Friday prior to admission she seemed kind of off and continued to do things around the house, like mowing the yard, usual activities up until the day of admission when she was found wandering in the parking lot. Workup revealed acute or subacute ischemic lesion on extensive chronic ischemic microvascular changes of the left MCA watershed zone between the posterior cerebral and middle cerebral arteries. The actual time of when the stroke symptoms started is really unclear. During the assessment, she did have expressive aphasia; yes and no to some questions; she was able to say her name. On extremities, she was actually full. There was some verbalized numbness and tingling on the right side with a mild right facial droop. The tongue was midline. There was a right upper extremity mild pronator drift. Pupils were equal and reactive. She followed all commands. Given that this was watershed distribution, Cardiology was consulted to determine if this was cardiac cause and Neurology was also consulted at that time. Speech therapy, physical therapy were ordered. She was started on some fluids. She was allowed permissive hypertension but stayed on her beta erin. She had a carotid ultrasound that was 0-39% bilaterally. Dr. Christensen evaluated the patient. Apparently he had seen her back in 2013 and attempted to get in touch with her family with the phone numbers he had but they were both disconnected. I wanted to hold off at that time to do a COMFORT until family had been contacted. She had a chest CT; it just showed some mild pulmonary edema. She had some inflammatory markers ordered, CRP which was high. The ESR was also elevated as well. NARENDRA was negative. There was some elevation in her CA-125. She continued to be aphasic, answering yes and no questions. After a few days, her blood pressure was more regulated. Dr. Christensen added ramipril along with doubling up her metoprolol and amlodipine. Occupational therapy was added to her regimen. Dr. Rivas saw the patient on 04/27/2019 for consultation and his impression included dysphasia with receptive more than expressive aphasia and some minimal right hemiparesis that he felt was consistent with a dominant left hemispheric syndrome. He felt that a COMFORT would be reasonable. He felt another option was to repeat a CTA. He recommended continuing to treat blood pressure, hydrate, treat lipids and blood sugar, physical therapy, speech therapy, low dose aspirin. So they did a repeat CTA of the head and neck on 04/27/2019 which showed significant intracranial cerebrovascular disease. It was reported as having a more unusual vascular disease with smooth narrowings at the basilar artery and both MCAs, left greater than right. The nature and lack of calcification is more suggestive of some vasculitis and she did have elevated inflammatory markers with the Sed rate and the CRP. Dr. Christensen did not suggest pursuing a COMFORT. He had minimal suspicion of endocarditis or cardiac pathology. 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 Dr. Jacinto Kraft from Rheumatology was consulted for the cerebral vasculitis. On 04/28/2019, during a nursing assessment, it was noted that she had an area on her abdomen that felt large and hard. It was reported to day care attendant nurse practitioner who then proceeded to order an abdominal-pelvic CT. The abdominal-pelvic CT showed a large cystic mass in the abdomen and upper pelvis with soft tissue thickening at the midline lower anterior abdominal wall deep subcutaneous fat which may relate to scarring or mass lesion. She did have an elevated CA-125 that had been previously ordered. Hematology was consulted the next day and Dr. Nunez saw her and his plan is to do a PET scan and vaginal ultrasound once she is discharged from the hospital. Palliative care team was consulted. It looks like Dr. Smiley was consulted on 04/29/2019 for urinary retention. She was started on tamsulosin. He did not recommend doing indwelling Ruelas catheter or intermittent catheterization. He wanted to check a postvoid residuals and accept anything less than 300. Apparently it could take up to 12 weeks for the bladder to recover post stroke. In following up with the patient's sister, I was finally able to start updating the family. I believe that was by 04/30/2019. It took some time with insurance but she was recommended for [facility] and will be discharged today to [facility]. DISCHARGE VITAL SIGNS: Temperature 98.2, heart rate 89, blood pressure 109/59, O2 saturation 99% on room air. DISCHARGE LAB DATA: Last CBC on 04/29/2019: White blood cell count 8000, hemoglobin 10, hematocrit 35, platelet count 427,000. On 05/02/2019, ESR was 55. On 04/29/2019, BMP: Sodium 139, potassium 4.0, BUN 11, creatinine 0.6, glucose 175, calcium 9.7, CA-125 was 58. On 05/02/2019, CRP was 100.71 and NARENDRA screen was negative. PERTINENT IMAGING: On 04/23/2019, head CT showed extensive chronic ischemic changes. Given the chronic findings, further evaluation with MRI was desirable. Head and neck CTA: The angiogram of the head suboptimal exam, no occlusion or stenosis identified. Angiogram of the neck: Normal flow within each common carotid artery with minimal stenosis within each internal carotid bulb. Brain MRI: Acute or subacute ischemic lesions superimposed on extensive chronic ischemic microvascular change. Fairly widely distributed lesions on the left could be result of emboli coming from the left carotid. They are mostly in the distribution of the left MCA, although the posterior lesions are in the watershed zone between the posterior cerebral and middle cerebral territories. Chest x-ray: Negative exam. On 04/24/2019, carotid ultrasound 0- 39% bilaterally. On 04/23/2019, echocardiogram: EF 70-75%. Little hyperdynamic on the left ventricle. Pulmonary pressure normal. No pericardial effusion or thrombus. No cardiac masses. No valvular abnormalities. EKG revealed normal sinus rhythm, rate 99, QTc was 397. On 04/25/2019, chest CT: Mild pulmonary edema. On 04/27/2019, head and neck CTA repeated: Significant intracranial cerebrovascular disease. There is conventional disease of the carotid siphons with moderate stenosis, however, there is more unusual vascular disease with smooth narrowings at the basilar artery, both middle cerebral arteries, left greater than right. The smooth nature and lack of calcification is more suggestive of some vasculitis. On 04/28/2019, abdominal- pelvic CT without contrast showed apparent large cystic mass in the abdomen and upper pelvis with some free fluid. Soft tissue thickening at the midline and lower anterior abdominal wall, the subcutaneous fat which relate to scarring or mass lesion. DISCHARGE MEDICATIONS: 1. Toprol XL 25 mg p.o. daily. 2. Flomax 0.4 mg p.o. nightly. 3. Atorvastatin 40 mg p.o. nightly. 4. Ramipril 5 mg p.o. twice daily. 5. Aspirin 81 mg p.o. daily. 6. Amlodipine 5 mg p.o. daily. 7. Tylenol 650 mg p.o. every 6 hours p.r.n. DISCHARGE DIET: Mechanical soft diet. DISCHARGE ACTIVITY: As tolerated and to work with occupational therapy, physical therapy and speech therapy. DISCHARGE FOLLOWUP: 1. Gian Bacon MD 2. Avery Nunez MD 3. Ramon Kraft IV, MD 4. Christine Rivas III, MD DISCHARGE INSTRUCTIONS: You were admitted for stroke. You are being discharged on medications to decrease the risk for further stroke. You were also found to have a large mass in your pelvis which could be cancer of your uterus, ovary or fallopian tube. Please see oncologist, Dr. Nunez, as outpatient, and property field adjuster; discuss about need for surgery and medications for it. Also see a tube draw helper, Dr. John, and discuss about your stroke. Continue with physical therapy and occupational therapy. DISCHARGE DISPOSITION: [facility]. Dictated by SOFI Coker for Hitesh Portillo MD cc: SOFI Coker MD I agree with most components of discharge summary. A separaate addendum has been dictated. >30 minutes were spent in preparing this discharge. MTDD
== END 2019-05-05 16:09 | DRG 65 ==
LOC: SUPCPDRO → ED 10:55 → 3N 18:38 → SUATTDRO 18:38
PROVIDERS: ATTEND Internal Medicine
CPT/HCPCS: 51701; 70450; 70496; 70498; 70551; 71010; 71045; 71250; 74176; 80048; 80053; 80061; 80101; 80301; 80307; 80320; 80324; 80345; 80346; 80353; 80358; 80361; 80365; 81001; 82055; 82378; 82550; 82805; 82948; 83036; 83605; 83721; 83880; 83992; 84484; 84550; 85025; 85027; 85379; 85610; 85651; 85730; 86038; 86039; 86140; 86304; 86431; 87088; 92507; 93005; 93306; 93880; 97116; 97163; 97166; 97530; 97535; 99285; A9270; C8929; G0431; G0434; G0479; G0480; G6040; J0360; J1650; J7030; P9612; Q9957; Q9967; XXXXX

== ENCOUNTER 2019-08-18 15:06 | Inpatient (IN) ==
[2019-08-18] MEDS ORDERED: NS 1,000 ML IV PRN (15:25)
--- NOTE | 2019-08-18 15:41 | EKG Report ---
Test Performed on : 08/18/2019 3:22:14 PM Test Reason : Stroke like symptoms Blood Pressure : / mmHG Vent. Rate : 107 BPM Atrial Rate : 107 BPM P-R Int : 126 ms QRS Dur : 086 ms QT Int : 322 ms P-R-T Axes : 015 006 026 degrees QTc Int : 429 ms Sinus tachycardia. Left ventricular hypertrophy with repolarization abnormality Abnormal ECG When compared with ECG of 14-AUG-2019 08:47, (Unconfirmed) No significant change was found Unconfirmed Result
[2019-08-18 15:47] LABS: BASO# 0.01 X1000 (0.0-0.2); BASO% 0.1 % (0.0-0.8); EOS# 0.12 X1000 (0.0-0.7); EOS% 1.5 % (0.0-10.0); HEMATOCRIT 35.9 % (37.0-47.0); LYMPH# 1.11 X1000 (1.2-3.4); LYMPH% 13.7 % (20.5-51.1); MCH 25.7 PG (27-31); MCHC 30.6 g/dL (33-37); MCV 83.9 FL (81-99); MONO# 0.68 X1000 (0.11-0.59); MONO% 8.4 % (1.7-9.3); MPV 9.4 FL (7.4-10.4); NEUT# 6.17 X1000 (1.4-6.5); NEUT% 76.3 % (42.2-75.2); PLT 528 X1000 (130-400); RBC 4.28 XMIL (4.2-5.4); RDW 14.9 % (11.5-14.5); WBC 8.09 X1000 (4.8-10.8)
--- NOTE | 2019-08-18 15:49 | Diag Imaging Result Doc PS360 ---
EXAM: CT HEAD W/O CONTRAST INDICATION: stroke like symptoms TECHNIQUE: This exam was performed using automated exposure control, adjustment of mA or kV according to patient size, and/or use of iterative reconstruction technique. COMPARISON: CT and MRI dated 04/23/2019 FINDINGS: There is multifocal encephalomalacia involving the left frontal, left occipital, and left parietal lobe that appears to correspond to areas of acute infarct seen on the prior MRI. There is a stable chronic lacunar infarct involving the thalamus on the right. There is patchy mild to moderate periventricular white matter microangiopathy that is stable. There is no definite acute infarct given the limited sensitivity of CT versus MRI. There is no discrete intracranial mass, mass effect, or intracranial hemorrhage. The surrounding soft tissues and bony structures are essentially unremarkable. IMPRESSION: Multifocal encephalomalacia on the left that appears to correspond with acute infarct seen on the prior MRI. No definite acute intracranial pathology by CT. Electronically signed by Eleuterio Burroughs 08/18/2019 3:47 PM
--- NOTE | 2019-08-18 15:51 | Diag Imaging Result Doc PS360 ---
EXAM: CHEST-PORTABLE INDICATION: stroke like symptoms TECHNIQUE: One view COMPARISON: 04/23/2019 FINDINGS: There is a stable calcified granuloma at the right lower lung zone. The lungs are grossly clear. There is no discrete pleural fluid collection or pneumothorax. The cardiomediastinal silhouette and central vasculature are grossly unremarkable. IMPRESSION: No evidence of acute pathology by plain radiograph. Electronically signed by Eleuterio Burroughs 08/18/2019 3:49 PM
[2019-08-18 16:04] LABS: INR 1.15; PROTIME 14.9 Seconds (11.0-16.0); PTT 32.1 Seconds (22.3-41.8)
[2019-08-18 16:15] LABS: AGAP 10; ALB/GLOB RATIO 1.5; ALBUMIN 3.6 g/dL (3.5-5.0); ALKALINE PHOSPHATASE 93 U/L (32-104); BUN 11 mg/dL (8-22); CALCIUM 9.6 mg/dL (8.8-10.2); CHLORIDE 104 mmol/L (98-107); COSMO 281; CREATININE 0.5 mg/dL (0.5-0.9); ESTIMATED GFR > 60; GLUCOSE 135 mg/dL (70-104); GOT 10 U/L (10-30); GPT 10 U/L (10-36); POTASSIUM 4.4 mmol/L (3.5-5.1); SODIUM 140 mmol/L (136-145); TCO2 26 mmol/L (25-35); TOTAL BILIRUBIN 0.37 mg/dL (0.20-1.00)
[2019-08-18 16:22] LABS: URINE SOURCE CATH
[2019-08-18 16:28] LABS: BILIRUBIN URINE SMALL (NEGATIVE); BLOOD URINE NEGATIVE (NEGATIVE); COLOR YELLOW; GLUCOSE URINE NEGATIVE (NEGATIVE); KETONE URINE TRACE mg/dL (NEGATIVE); LEUKOCYTES URINE NEGATIVE (NEGATIVE); NITRITE URINE NEGATIVE (NEGATIVE); PH URINE 5.5; PROTEIN URINE 30 mg/dL (NEGATIVE); TURBIDITY URINE HAZY (CLEAR); UROBILINOGEN URINE 4 mg/dL (NORMAL)
[2019-08-18 16:34] LABS: UR AMPHETAMINES QUAL NONE DETECTED (NONE DETECT); UR BARBITUATES QUAL NONE DETECTED (NONE DETECT); UR BENZODIAZEPIN QUAL NONE DETECTED (NONE DETECT); UR CANNABINOIDS QUAL NONE DETECTED (NONE DETECT); UR COCAINE QUAL NONE DETECTED (NONE DETECT); UR METHADONE QUAL NONE DETECTED (NONE DETECT); UR OPIATES QUAL NONE DETECTED (NONE DETECT); UR OXYCODONE QUAL NONE DETECTED (NONE DETECT); UR PCP QUAL NONE DETECTED (NONE DETECT)
[2019-08-18 16:35] LABS: UR EPITHELIAL CELLS <10 /HPF (<10); URINE BACTERIA NEGATIVE /HPF; URINE RBC <10 /HPF (<10); URINE WBC <10 /HPF (<10)
[2019-08-18 16:41] LABS: URINE YEAST NONE SEEN
[2019-08-18] MEDS ORDERED: ZOFRAN IV PRN (18:32)
--- NOTE | 2019-08-18 22:25 | HISTORY AND PHYSICAL ---
PRIMARY CARE PROVIDER: Dr. Gian Bacon. CHIEF COMPLAINT: Per neighbor at bedside, trouble with speech and unable to use the right arm. HISTORY OF PRESENT ILLNESS: Ms. Abrams is a 63-year-old female with a past medical history of a speech impediment, osteoarthritis, hypertension, GERD, who had a CVA back in March and was diagnosed with a pelvic mass that continues to grow. She has not had follow up with Dr. Jeremiah Cervantes in [place] secondary to needing a referral. Her neighbor reports that she lives by herself. She has never been and has never had any children. She has no living relatives. She reported since the time of her stroke back in March, she has continued to have a little bit of difficulty with her speech. However, since Friday, it has increasingly gotten worse. She reported today this morning, the patient walked over to her neighbor's house, ask her to get some more cat food. She went back at lunchtime, brought her a couple of hot dogs and then came back later in the afternoon and she did not answer the door. So she went into the residence and found her sitting in the den in a chair. She was somewhat altered. She was really not able to say anything except for okay and yes and was unable to move her right upper extremity. She does report that her right lower extremity is always stiff. However, she has been walking fine without it, sometimes unassisted without a walker. Workup with a head CT in the ED showed multifocal encephalomalacia on the left that appears to correspond with acute infarct seen on prior MRI, but no definite acute intracranial pathology. We will admit her to the medical telemetry with a full neurological workup. PAST MEDICAL HISTORY: 1. Multifocal CVA 2. Osteoarthritis. 3. Hypertension. 4. Gastroesophageal reflux disease. 5. Diabetes mellitus type 2 6. Large complex cystic ovarian mass PAST SURGICAL HISTORY: 1. Left total knee arthroplasty. 2. Left carpal tunnel release. SOCIAL HISTORY: She only has a friend that checks on her. She has never been . No children. No living family. ALLERGIES: Sulfa. HOME MEDICATIONS: Have not been verified. PHYSICAL EXAMINATION: VITAL SIGNS: Temperature is 98.1 degrees, heart rate 98, respirations 33, blood pressure 158/86, O2 is 96% on room air. GENERAL: Ms. Abrams is a 63-year-old female who is lying on the bed who says "Hi, okay" and will shake her head yes. She is unable to move her right upper extremity without the assistance of her left arm. She is lying in the bed in no acute distress. HEENT: Atraumatic, normocephalic. PERRL. NECK: Supple. Trachea midline. CARDIOVASCULAR: S1, S2 appreciated. No murmurs, gallops, rubs noted. RESPIRATORY: Lung sounds clear bilaterally. GI: Was soft, nontender, nondistended. Positive bowel sounds in 4 quadrants. EXTREMITIES: Lower extremities are negative for edema. Bilateral pedal pulses are palpable. Her right lower extremity is stiff. That is chronic. NEURO ASSESSMENT: The patient could say hi and okay and shake her head yes. She does have noticeable right upper extremity weakness. She was not able to grasp my hand. She was not able to lift her arm up. She is 5/5 on the left, 5/5 to the left lower extremity, about 3/5 on the right. She is able to lift both legs up off the bed; however, she cannot bend her right extremity. Could not assess a pronator drift. Her tongue was midline. Her smile was symmetrical. She was unable to shrug her shoulders. DIAGNOSTIC DATA: A head CT: Multifocal encephalomalacia on the left that appears to correspond with acute infarct seen on prior MRI. No definite acute intracranial pathology by CT. Chest x-ray: No evidence of acute pathology. EKG: Sinus tachycardia with LVH. LABORATORY DATA: White count 8, hemoglobin and hematocrit 11 and 35, platelet count is 528,000. Sodium 140, potassium 4.4, BUN 11, creatinine 0.5, blood glucose is 135. Urinalysis was negative for nitrites. Negative for bacteria. Toxicology screen negative. ASSESSMENT AND PLAN: 1. Acute cerebrovascular accident. Head CT shows multifocal encephalomalacia on the left that appears to correspond with acute infarct seen on prior MRI, but no definite acute intracranial pathology. We will continue with full neurological workup with a brain MRI in the a.m. She had recent carotids and echocardiogram back in March. We will consult Dr. Rivas. We will continue restart aspirin therapy. We will ask them to do a bedside swallow today. Place her on strict aspiration precautions. Consult Cutlet Maker Pork, PT, OT and Speech Therapy. The patient may need rehab at discharge and possible long-term care. 2. Complex cystic ovarian mass. The patient will need to be referred to [facility] upon discharge. 3. Hypertension. We will allow for permissive hypertension 220/120. 4. Diabetes mellitus type 2. Will start sliding scale insulin. 5. Further recommendation to follow physician evaluation, laboratory and diagnostic data. Dictated by SOFI Aguilera for Treasure Jose MD cc: MD Christine Hollis III, MD Dr. Jay Paul I performed a face to face encounter on the patient. I reviewed all labs and imaging on the patient. I agree with the H&P as dictated. is a 63 year old female with a history of CVA, hypertension, Diabetes mellitus type 2 and a large complex cystic ovarian mass who was brought to the ER with stroke like symptoms. Upon arrival, the patient was noted to be aphasic and could only speak with single words. She was admitted in March of 2019 with similar symptoms and found to have suffered a multifocal stroke. She had a complete work up during that hospitalization. There was concern about PROFESSOR OF FINE ART vasculitis and she was referred to for further evaluation. She was also scheduled to follow up with in reference to the ovarian mass. She is unable to tell me whether she was able to follow up with any of her scheduled appointments. The patient will be admitted and further imaging will be ordered. Will also consult with Neurology and Rheumatology. GENNA
[2019-08-18] MEDS: NS 1,000 ML IV SCH (23:54)
[2019-08-19 07:25] LABS: BASO# 0.01 X1000 (0.0-0.2); BASO% 0.2 % (0.0-0.8); EOS# 0.19 X1000 (0.0-0.7); HEMATOCRIT 33.7 % (37.0-47.0); HEMOGLOBIN 10.2 g/dL (12.0-16.0); LYMPH% 19.1 % (20.5-51.1); MCH 25.5 PG (27-31); MCHC 30.3 g/dL (33-37); MCV 84.3 FL (81-99); MONO# 0.52 X1000 (0.11-0.59); MONO% 8.3 % (1.7-9.3); MPV 9.4 FL (7.4-10.4); NEUT# 4.35 X1000 (1.4-6.5); NEUT% 69.4 % (42.2-75.2); PLT 464 X1000 (130-400); RDW 15.1 % (11.5-14.5); WBC 6.27 X1000 (4.8-10.8)
[2019-08-19 07:44] LABS: AGAP 9; ALB/GLOB RATIO 1.1; ALBUMIN 3.1 g/dL (3.5-5.0); ALKALINE PHOSPHATASE 85 U/L (32-104); BUN 10 mg/dL (8-22); CHLORIDE 103 mmol/L (98-107); COSMO 272; CREATININE 0.5 mg/dL (0.5-0.9); ESTIMATED GFR > 60; GLUCOSE 113 mg/dL (70-104); GOT 9 U/L (10-30); GPT 9 U/L (10-36); SODIUM 136 mmol/L (136-145); TCO2 24 mmol/L (25-35); TOTAL PROTEIN 5.9 g/dL (6.3-8.3)
[2019-08-19] MEDS ORDERED: ASPIRIN PR SCH (09:00)
--- NOTE | 2019-08-19 10:38 | Diag Imaging Result Doc PS360 ---
EXAM: MRI BRAIN W/WO CONTRAST INDICATION: stroke COMPARISON: 04/23/2019 FINDINGS: There is restricted diffusion involving the left occipital lobe and left temporal lobe consistent with acute infarcts. There is milder patchy diffusion restriction in the periventricular and subcortical left frontal lobe. There may also be a small focus of restricted diffusion involving the superior parietal lobe on the left. These are in a very similar distribution as the infarcts that were seen on the prior MRI indicating that most are penumbral infarcts. They appear to be in the left MCA distribution. There is also several chronic lacunar infarcts and encephalomalacia in the periventricular white matter, some of which were acute on the previous study. There is no discrete intracranial mass, mass effect, or intracranial hemorrhage. There is no evidence of abnormal intracranial enhancement. The surrounding soft tissues and bony structures are essentially unremarkable. IMPRESSION: Multifocal acute infarcts in a similar distribution as multifocal infarcts seen on the previous MRI, which are now chronic. Please see above discussion. Electronically signed by Eleuterio Burroughs 08/19/2019 10:36 AM
--- NOTE | 2019-08-19 10:55 | Diag Imaging Result Doc PS360 ---
EXAM: MRA BRAIN W/O CONTRAST INDICATION: stroke TECHNIQUE: 3-D axial [id number] images and 3-D MIPS of the [place] of [place] were obtained. COMPARISON: CTA head dated 04/27/2019. FINDINGS: There is focal high-grade stenosis involving the M1 segment of the left MCA, which can also be seen on the prior CTA. The left FLOORLEADER is very diminutive and is truncated suggesting high-grade stenosis. It appears similar to the previous CTA. The right FLOORLEADER remains patent. There is mild narrowing of the M1 segment of the right MCA. This is similar to the previous study. Smooth narrowing of the distal basilar artery is stable. There is mild to moderate atherosclerotic narrowing at the carotid siphons bilaterally. The anterior cerebral arteries exhibit no flow-limiting stenosis. No cerebral aneurysms or vascular malformations are appreciated. IMPRESSION: Multifocal stenosis that is very similar to the previous CTA and most prominent at the M1 segment of the left MCA as well as the left FLOORLEADER. HYDROCRANE OPERATOR vasculitis should be considered given the multifocal vascular narrowing. Electronically signed by Eleuterio Burroughs 08/19/2019 10:53 AM
--- NOTE | 2019-08-19 11:06 | Diag Imaging Result Doc PS360 ---
EXAM: MRA NECK W/CONT INDICATION: stenosis/recurrent strokes TECHNIQUE: Axial 3-D [id number] images as well as contrast-enhanced coronal images and 3-D reformations were obtained. COMPARISON: None. FINDINGS: There is no evidence of flow-limiting stenosis, vascular malformation, aneurysm, or dissection involving the common carotid arteries, the external carotid arteries, or the cervical segments of the internal carotid arteries bilaterally. The vertebral arteries are codominant and appear widely patent throughout. IMPRESSION: Grossly normal MRA of the neck. Electronically signed by Eleuterio Burroughs 08/19/2019 11:03 AM
[2019-08-19] MEDS: LOVENOX SUBQ SCH (14:07)
--- NOTE | 2019-08-19 14:20 | PROGRESS NOTE ---
DATE: 08/19/2019 SUBJECTIVE: The patient is resting in bed. She continues to be aphasic. OBJECTIVE: Vital signs: Temperature 98.4 degrees, blood pressure 162/79, heart rate 98, respirations 18, and O2 saturation 97% on room air. General: This is a chronically ill-appearing elderly female lying in bed in no acute distress. Heart: S1, S2 normal. Tachycardic. Lungs: Clear to auscultation bilaterally. Abdomen: Positive bowel sounds. Soft, nontender, and nondistended. Extremities: No edema. No cyanosis. Neurologic: The patient is awake, but aphasic. She is able to move her extremities. LABORATORY: Hemoglobin 10, hematocrit 33, and platelets 464,000. Sodium 136, potassium 4, chloride 103, CO2 24, BUN 10, creatinine 0.5, glucose 113, calcium 9, and albumin 3.1, and LDL 75. 1. MRI of the brain: Multifocal acute infarcts. 2. MRA of the brain multifocal stenosis. HOMEOWNER ASSOCIATION MANAGER vasculitis should be considered. ASSESSMENT AND PLAN: 1. Multifocal CVA. The patient had a complete workup for stroke in May at which time she was admitted with the same symptoms. It was recommended that she follow up with Rheumatology due to the possibility of HOMEOWNER ASSOCIATION MANAGER vasculitis. I will start the patient on aspirin. Continue on statin therapy. We will also consult with Neurology and Rheumatology. 2. Complex cystic ovarian mass. The patient will need an outpatient referral to [facility]. 3. Pancreatic cyst versus neoplasm. The patient will need further imaging. 4. Morbid obesity. Aware. 5. Diabetes mellitus type 2. Continue on sliding scale insulin. 6. Hypertension. The patient's antihypertensive medication is currently on hold given recent stroke. 7. Deep vein thrombosis prophylaxis. We will start the patient on Lovenox. 8. Disposition. Once the patient is deemed medically stable, she will likely require inpatient rehab placement. We will consult with Retail Greeter to assist with placement. cc: Treasure Jose MD [facility]
[2019-08-19] MEDS: HUMULIN R SUBQ SCH ×2 (16:08→20:55)
--- NOTE | 2019-08-19 16:44 | Diag Imaging Result Doc PS360 ---
EXAM: US PELVIC NON-OB COMPLETE INDICATION: cystic ovarian mass TECHNIQUE: COMPARISON: CT dated 08/14/2019 FINDINGS: The extremely large pelvic and lower abdominal mass with cystic and solid components seen on prior CT is identified. It is too large for accurate ultrasound measurement. Please refer to the prior CT. The right nor the left ovary can be identified. The origin of the mass is not clear on this study. However, it is suspected to be of ovarian origin. Neither the right nor the left ovary can be visualized and are probably being obscured by the mass. The uterus can be identified and it appears grossly normal in echotexture. It measures 6.6 x 3.4 x 3.0 cm. The endometrium was obscured. IMPRESSION: Extremely large complex lower abdominal and pelvic mass that was also seen on recent CT as detailed above. Electronically signed by Eleuterio Burroughs 08/19/2019 4:41 PM
[2019-08-19] MEDS: NS 1,000 ML IV SCH (19:43)
[2019-08-19] MEDS: LIPITOR PO SCH ×2 (20:46)
--- NOTE | 2019-08-19 21:42 | CONSULTATION ---
DATE OF CONSULTATION: 08/19/2019 REASON FOR CONSULT: Stroke. HISTORY OF PRESENT ILLNESS: This is a 63-year-old female with a history of stroke in March of this year, hypertension, and pelvic mass. She was admitted with a new stroke. History is from chart review, as no one is at bedside, and the patient herself is aphasic. Apparently since her stroke in March she has had some residual speech difficulty. Her neighbor next door helps her out, as the patient has no family. She noted that since Friday the patient has not seemed at her baseline, with more difficulty in speech. I believe yesterday, the day of admission, her neighbor found her sitting in a chair in her den after she would not answer the door. She was a bit confused and was only able to say okay and yes. She had right arm weakness. Head CT did not show definite acute findings; however, an MRI of the brain today showed multifocal acute infarcts in a similar distribution to that seen on prior MRI in March. MRA showed multi focal stenosis similar to the previous CTA and most prominent at the M1 segment of the left MCA as well as the left ENVIRONMENTAL EMERGENCIES ASSISTANT. There is a question of INSTRUMENT TECHNICIAN HELPER vasculitis. Neck MRA was grossly normal. PAST MEDICAL HISTORY: Includes stroke in March 2019. At that point, she also had some language dysfunction, I believe felt mostly to be receptive. Residual speech difficulty. Possible ischemic heart disease. Osteoarthritis, hypertension, GERD, a pelvic mass diagnosed March 2013. She has not followed up with this, I do not believe. Left total knee arthroplasty, left carpal tunnel release. SOCIAL HISTORY: She has no family. She lives alone. Not , no children. Her neighbor checks on her. ALLERGIES: Sulfa. CURRENT MEDICATIONS: Reviewed in the chart. Include aspirin 325 mg daily and Lipitor 40 mg. REVIEW OF SYSTEMS: Unobtainable due to patient's aphasia. PHYSICAL EXAMINATION: Vital Signs: Afebrile. Blood pressure 162/79. On admission, 148/81, pulse 98, respirations 18, 97% on room air. General: Ms. Abrams is supine in bed with head of bed elevated. She is awake and alert. Attentive. She is able to follow simple commands. Neurologic: Digit distinction is preserved. She did not participate with left- right distinction. There is a prominent expressive aphasia and some frustration noted. She has paraphasic errors. Pupils equal, round, and reactive. Gaze is conjugate. Extraocular movements appear full. She blinks to threat. Face symmetric appearing. Tongue is midline. Could not visualize the palate. She is at least against gravity in the right upper extremity. Most likely, she is 4- out of 5 with a weak hand roadway technician. She has 4- out of 5 in the right lower extremity. Her power is good on the left upper and lower extremity. She responds to mild noxious stimuli in the extremities. She is not able to participate well enough with [id number] testing or rapid alternating movements. Reflexes are absent at the ankles and knees. No clonus. Plantar response is downgoing. Reflexes 2+ at the wrists, slightly more brisk on the right than the left. I did not test her gait. DIAGNOSTICS/LABS: 1. Normal white count. Platelets of 464. Normal sodium, BUN, creatinine. Blood sugars 111 to 135. CRP of 96, which is elevated. LDL 75. HDL of 39. 2. MRI of the brain with and without contrast personally reviewed. Multifocal acute infarcts in a similar distribution as the multifocal infarcts on previous MRI in March, which are chronic. MRA of the neck is grossly normal. 3. MRA of the brain personally reviewed. Multifocal stenosis similar to the previous CTA. The most prominent is at the M1 segment of the left MCA as well as the left ENVIRONMENTAL EMERGENCIES ASSISTANT. INSTRUMENT TECHNICIAN HELPER vasculitis should be considered given the multifocal vascular narrowing that is reported. ASSESSMENT: 1. Recurrent acute multifocal stroke in the left middle cerebral artery distribution. 2. Multifocal stenosis involving the left MCA and ENVIRONMENTAL EMERGENCIES ASSISTANT, raising the question of vasculitis on report 3. Primarily expressive aphasia with mild to moderate right hemiparesis. 4. Pelvic mass. PLAN: 1. Agree with full-dose aspirin daily as you are doing, and Lipitor. She is receiving workup now for the pelvic mass. She does have other risk factors for stroke including hypertension, previous stroke, possibly ischemic heart disease. 2. Agree with physical therapy, occupational therapy and speech therapy. There was a question raised regarding the potential for vasculitis; however, I think that is less likely, although I think it is reasonable to order lab work for systemic vasculitis at this time, and I would recommend that. I think once she stabilizes from this and other medical issues, a referral could be made for conventional cerebral angiogram as was considered during her last hospitalization. Continue close neuro checks. I would allow a moderate amount of permissive hypertension for now and avoid hypotension. 3. Speech therapy for swallow evaluation. Thank you for the consult. cc: Raquel Messina MD MTDAnila
--- NOTE | 2019-08-20 00:07 | CONSULTATION ---
DATE OF CONSULTATION: 08/19/2019 REQUESTING PHYSICIAN: Treasure Jose MD. HISTORY OF PRESENT ILLNESS: Patient is a 63-year-old female with a recent CVA and pelvic mass on CT. She has a history of a CVA in March 2019, at which time, the pelvic mass was discovered. After discharge in March, she did not follow up with a [employer] oncologist for her pelvic mass. At this admission, the patient was brought to the hospital by her neighbor, who discovered her at home with the inability to speak or move her right upper extremity. Repeat MRI imaging of the brain has shown multifocal acute infarcts at this admission. Repeat imaging of the abdomen revealed a pelvic mass that had increased in size since last imaging in March. Upon exam, the patient is aphasic and unable to give a history or review of systems. Information concerning her care has been obtained through medical records and speaking with the hospitalist. REVIEW OF SYSTEMS: Unable to obtain. PAST MEDICAL HISTORY: 1. History of CVA in March. 2. Large pelvic mass. 3. Hypertension. 4. Osteoarthritis. 5. GERD. 6. Speech impediment. PAST SURGICAL HISTORY: 1. Left total knee replacement. 2. Left carpal tunnel surgery. 3. She has a large midline vertical incision on her abdomen, but is unable to give a surgical history. SOCIAL HISTORY: She lives alone. A neighbor is the power of estate planning attorney. She does not have any living family. ALLERGIES: Sulfa. MEDICATIONS: While in the hospital, aspirin 325 mg p.o. daily, Lipitor 40 mg p.o. at bedtime, Lovenox 40 mg subcu q.24 hours, sliding-scale insulin. GYNECOLOGIC HISTORY: Unable to obtain. PHYSICAL EXAMINATION: Vital signs: Temperature 97.9 degrees, heart rate 97, blood pressure 154/80, and O2 saturation 97% on room air. General: Alert, female, in no acute distress. She is not oriented to person, place, or time. She is able to point at things and can follow some commands. HEENT: Atraumatic, normocephalic. Heart: Regular rate and rhythm. No murmurs. Respiratory: Lungs clear to auscultation bilaterally. No respiratory distress. Abdomen: Soft, nontender, mildly distended. Normal bowel sounds. Solid mass palpated. Extremities: No clubbing, cyanosis, or edema. Negative Timoteo's sign. Weakness in right upper extremity, difficulty moving right upper extremity against gravity. Left upper extremity within normal limits. IMAGIN. CT abdomen and pelvis with IV contrast from 08/14/2019, mild subsegmental atelectasis at the lung bases. A tiny stable left hepatic lobe cyst. Gallbladder and spleen are unremarkable. There is a low-dense 1.1 cm lesion involving the uncinate process of the pancreas. Similar to previous studies. The adrenal glands appear normal. The kidneys and urinary bladder are essentially unremarkable. There is a large complex intraperitoneal cystic mass seen on the previous study. It is significantly larger than on the previous study, it measures up to 30.6 x 27.9 x 10.5 cm axillary. The lesion is complex and multiloculated. There are several small calcifications associated with the matthews and septa within the lesion. It is suspicious for a cystic neoplasm, possibly of an ovarian origin. It may also represent pseudomyxoma peritonea. The appendix is not identified. There is mild uncomplicated sigmoid colon diverticulosis. There is a fair amount of stool on the right side of the colon. There is no evidence of bowel wall thickening or bowel obstruction. There is a small hiatal hernia that is stable. The remainder of the GI tract is essentially unremarkable. 2. Brain MRI showed multifocal acute infarcts in a similar distribution as multifocal infarcts seen on the previous MRI, which are now chronic. 3. Brain MRA: Multifocal stenosis that is very similar to previous CTA, PEARL DIGGER vasculitis should be considered given the multifocal vascular narrowing. 4. Pelvic ultrasound 08/19/2019, extremely large pelvic and lower abdominal mass with cystic and solid component seen on prior CT is identified. It is too large for accurate ultrasound measurement. The left ovary can be identified. The origin of the mass is not clear on this study. However, it is suspected to be of ovarian origin. Neither the right nor the left ovary can be visualized and are probably being obscured by the mass. The uterus can be identified, and it appears grossly normal in echotexture, it measures 6.6 x 3.4 x 3 cm. The endometrium was obscured. LABORATORY DATA: White blood cell count 6.2, hemoglobin 10.2, hematocrit 33.7, platelets 464,000. PT 14.9, PTT 32.1, INR 1.15. Sodium 136, potassium 4, chloride 103, carbon dioxide 24, BUN 19, creatinine 0.5. Blood sugar 113, AST 9, ALT 9. CA-125 is 51. Urinalysis, trace ketones. CEA from 04/24/2019 was 9.0. ASSESSMENT AND PLAN: Patient is a 51-year-old female with aphagia, multifocal infarcts, and history of cerebrovascular accident with a large pelvic mass and elevated CA-125. 1. Elevated CA-125 and large pelvic mass in a postmenopausal female is strongly suspicious for malignancy. Characteristics on CT and ultrasound are also strongly suspicious for malignancy. Mass is complex and multiloculated. It also contains calcifications associated with matthews and septa. 2. Recommended Gynecologic Oncology consult for further management of pelvic mass given the strong suspicion for malignancy.
[2019-08-20] MEDS: HUMULIN R SUBQ SCH ×4 (06:10→21:11)
[2019-08-20 07:18] LABS: RBC 3.96 XMIL (4.2-5.4); WBC 7.45 X1000 (4.8-10.8)
[2019-08-20 07:19] LABS: HEMATOCRIT 33.8 % (37.0-47.0); HEMOGLOBIN 10.3 g/dL (12.0-16.0); MCHC 30.5 g/dL (33-37); MCV 85.4 FL (81-99); MPV 9.4 FL (7.4-10.4); RDW 15.1 % (11.5-14.5)
[2019-08-20 07:52] LABS: SODIUM 138 mmol/L (136-145)
[2019-08-20 07:53] LABS: AGAP 13; BUN 9 mg/dL (8-22); CALCIUM 9.6 mg/dL (8.8-10.2); CHLORIDE 102 mmol/L (98-107); COSMO 276; CREATININE 0.5 mg/dL (0.5-0.9); ESTIMATED GFR > 60; GLUCOSE 126 mg/dL (70-104); POTASSIUM 4.5 mmol/L (3.5-5.1); TCO2 23 mmol/L (25-35)
[2019-08-20] MEDS ORDERED: VITAMIN D PO SCH (09:00)
[2019-08-20] MEDS: ASPIRIN PO SCH (09:43)
--- NOTE | 2019-08-20 12:03 | PROGRESS NOTE ---
DATE: 08/20/2019 SUBJECTIVE: Ms. Abrams has presented with prominent dysphasia, expressive more than receptive now, and right hemiparesis involving the arm more than leg. There is imaging evidence of acute posterior left hemisphere infarction. On my view, the acute ischemic change is more prominent and more posterior now than on imaging in 03/2019. Cervical MRA is unremarkable. Brain MRA shows evidence of stenosis in the left middle cerebral and posterior cerebral arteries. These findings were reported to be similar to what was seen on CTA several months ago. OBJECTIVE: On exam, she is awake, alert, bright, cheerful and very attentive. She followed some simple commands including raising hands, holding up her thumb, protruding her tongue. She was very inconsistent with commands requiring digit distinction, and she could not do calculation. She named my watch, but did not name the band. She did not name the president but did tell me her name. She counted fingers consistently in the left visual field and did not count fingers in the right visual field. She used her left arm vigorously and purposefully. She raised her right arm but did not use her right hand. 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 Clinical findings are consistent with that including dysphasia, right hemianopia, right hemiparesis. There is concern for vasculitis based on the multiple areas of ischemic change several months ago and again now. The findings appear to be confined to the right middle cerebral and posterior cerebral artery territories where there has been stenosis demonstrated. She has underlying problem of a pelvic mass with features worrisome for malignancy and workup in progress. I do not think we have to proceed with aggressive workup for possible HARD METALS HAND ENGRAVER vasculitis or empiric immunosuppressant treatment until the pelvic mass diagnosis is established. We can check labs for coagulopathy electively. Conventional 4 vessel cerebral angiography can be considered later. No urgent suggestion today from Neurology standpoint. Thanks for asking us to see Ms. Abrams. cc: MD GENNA Haji III
[2019-08-20] MEDS: LOVENOX SUBQ SCH (12:47)
[2019-08-20 13:12] LABS: ANTINEUTROPHIL CYTOPLASMIC AB SEE COMMENTS
--- NOTE | 2019-08-20 15:35 | PROVIDER DOCUMENTATION ---
This chart was entered by Ara Garcia Scribe, acting as scribe for Nakul Che MD. HPI-Neurological Disorder - General Chief Complaint: Stroke-Like Symptoms Stated Complaint: STROKE LIKE SYMPTOMS Time Seen by Provider: 08/18/19 15:25 Source: other (friend) Allergies/Adverse Reactions: Patient Allergies Allergy/AdvReac Type Severity Reaction Status Date / Time Sulfa (Sulfonamide Allergy RASH Verified 08/18/19 15:31 Antibiotics) Home Medications: Home Medication List Medication Instructions Recorded Confirmed Last Taken Type Metoprolol Succinate E.r. [Toprol 25 mg PO DAILY 04/23/19 08/14/19 Unknown History Xl] ATORVAstatin [Lipitor] 40 mg PO QHS tab 05/05/19 08/14/19 Unknown Rx Acetaminophen [Tylenol] 650 mg PO Q6H PRN PRN tab 05/05/19 08/14/19 Unknown Rx Amlodipine [Norvasc] 5 mg PO DAILY tab 05/05/19 08/14/19 Unknown Rx Aspirin 81 mg PO DAILY chewtab 05/05/19 08/14/19 Unknown Rx RAMIpril [Altace] 5 mg PO BID cap 05/05/19 08/14/19 Unknown Rx Tamsulosin [Flomax] 0.4 mg PO QHS cap 05/05/19 08/14/19 Unknown Rx - History of Present Illness-Neuro Nature of Presenting Problem: Patient is a 63 year old female who presents with stroke like symptoms. Friend states patient was unable to talk or use the right side of her body when she went to her house about 30 minutes ago. Friend states she last saw the patient normal around 1200. Patient is alert but unable to follow commands. Severity: reports: mild, moderate Onset/Duration: reports: unsure, other (last seen normal at 1200.) Timing: reports: still present Context: reports: impaired speech, other (weakness to RUE and RLE) Character of Deficits: reports: new weakness, impaired speech (receptive and expressive aphasia) New weakness or altered sensation location:: reports: RUE, RLE Associated Symptoms: reports: denies symptoms Similar Symptoms Previously?: No Recently seen or treated by another doctor?: Yes Review of Systems - Adult - REVIEW OF SYSTEMS - ADULT ROS:: unobtainable per condition Constitutional: reports: no symptoms reported Eyes: reports: no symptoms reported Ears, Nose, Mouth & Throat: reports: no symptoms reported Cardiovascular: reports: no symptoms reported Respiratory: reports: no symptoms reported Gastrointestinal: reports: no symptoms reported Genitourinary: reports: no symptoms reported Musculoskeletal: reports: no symptoms reported Integumentary: reports: no symptoms reported Neurological: reports: no symptoms reported Psychiatric: reports: no symptoms reported Endocrine: reports: no symptoms reported Hematologic/Lymphatic: reports: no symptoms reported Allergic/Immunologic: reports: no symptoms reported All Other Systems: Reviewed and Negative Past History - Adult - PAST MEDICAL HISTORY-ADULT Review of Records: reports: Old Records Reviewed, Social history reviewed & non- contributory. Major Childhood Illnesses: reports: denies history Cardiovascular: reports: HTN, hyperlipidemia Respiratory: reports: denies history Gastrointestinal: reports: denies history Obstetrical/Gynecological: reports: denies history Genitourinary: reports: denies history Musculoskeletal: reports: denies history Neurological: reports: CVA Endocrine/Immune: reports: Diabetes Other Conditions: reports: denies history - PRIOR SURGERIES/PROCEDURES Surgical/Procedure History: reports: joint replacement (bilateral knees) - IMMUNIZATION STATUS Childhood Immunizations: See Nurse Assessment Flu Vaccine: See Nurse Assessment - FAMILY HISTORY Family History: reviewed, not pertinent - SOCIAL HISTORY Smoking: other (unable to obtain per patient's condition) Substance Use: other (unable to obtain per patient's condition) Living Situation: alone Physical Exam- Neurological - Physical Exam-Neuro Initial Vital Signs Reviewed: Yes General Appearance: alert, no apparent distress. negative: lethargic Eye Exam: bilateral eye: normal inspection, PERRL, EOMI HENMT: normocephalic/atraumatic, moist mucous membranes. negative: angioedema Head Injury: no evidence of injury. negative: active bleeding, lacerations Respiratory: chest non-tender, lungs clear, normal breath sounds. negative: rhonchi, wheezing Cardiovascular: normal peripheral pulses, regular rate, rhythm. negative: tachycardia Abdominal Exam: normal bowel sounds, non tender, soft. negative: guarding, rebound Extremity: normal inspection. 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 negative: abnormal eye position, facial droop Motor/Sensory: weak motor strength RUE, weak motor strength RLE Neurologic: aphasia (receptive), motor weakness (RUE and RLE) Integumentary: normal color, normal turgor, warm/dry. negative: diaphoresis, ecchymosis, rash Psych/Mental Status: other (unable to assess per patient's condition) Progress - PLAN OF CARE/RESULTS Progress/Plan/Lab Results: Vital Signs - 8 hr 08/18/19 15:10 08/18/19 15:16 08/18/19 15:40 Temperature 98.1 F Pulse Rate 107 H Respiratory Rate 18 Blood Pressure 148/81 O2 Sat by Pulse Oximetry 98 96 96 08/18/19 15:42 08/18/19 15:45 08/18/19 16:00 Temperature Pulse Rate 104 H 107 H 104 H Respiratory Rate 17 21 31 H Blood Pressure 158/86 O2 Sat by Pulse Oximetry 96 96 96 08/18/19 16:15 Temperature Pulse Rate 98 H Respiratory Rate 33 H Blood Pressure O2 Sat by Pulse Oximetry 97 Laboratory Results - last 24 hr 08/18/19 08/18/19 08/18/19 15:17 15:28 15:28 WBC 8.09 RBC 4.28 Hgb 11.0 L Hct 35.9 L MCV 83.9 MCH 25.7 L MCHC 30.6 L RDW Std Deviation 14.9 H Plt Count 528 H MPV 9.4 Immature Gran % (Auto) 0.0 Neut % (Auto) 76.3 H Lymph % (Auto) 13.7 L Kings % (Auto) 8.4 Eos % (Auto) 1.5 Baso % (Auto) 0.1 Immature Gran # (Auto) 0.00 Neut # (Auto) 6.17 Lymph # (Auto) 1.11 L Kings # (Auto) 0.68 H Eos # (Auto) 0.12 Baso # (Auto) 0.01 PT INR PTT (Actin FS) Sodium 140 Potassium 4.4 Chloride 104 Carbon Dioxide 26 Anion Gap 10 BUN 11 Creatinine 0.5 Estimated GFR/1.73 m2 > 60 BUN/Creatinine Ratio 22 Glucose 135 H POC Glucose 144 H Calculated Osmolality 281 Calcium 9.6 Total Bilirubin 0.37 AST 10 ALT 10 Alkaline Phosphatase 93 Troponin T Total Protein 6.0 L Albumin 3.6 Globulin 2.4 Albumin/Globulin Ratio 1.5 Urine Source Urine Color Urine Turbidity Urine pH Ur Specific [place] Urine Protein Ur Glucose (Stick) Ur Ketones (Stick) Urine Blood Urine Nitrite Urine Bilirubin Urobilinogen Dipstick Urine Leukocytes Urine WBC (Auto) Urine RBC (Auto) U Epithel Cells (Auto) Urine Bacteria (Auto) Urine Crystals Small Round Cells Urine Casts Urine Yeast-like Cells Urine Opiates Screen Ur Oxycodone Screen Ur Methadone, Qual Ur Barbiturates Screen Ur Phencyclidine Scrn Ur Amphetamines Screen U Benzodiazepines Scrn Urine Cocaine Screen U Cannabinoids Screen 08/18/19 08/18/19 08/18/19 15:28 15:28 16:17 WBC RBC Hgb Hct MCV MCH MCHC RDW Std Deviation Plt Count MPV Immature Gran % (Auto) Neut % (Auto) Lymph % (Auto) Kings % (Auto) Eos % (Auto) Baso % (Auto) Immature Gran # (Auto) Neut # (Auto) Lymph # (Auto) [place] # (Auto) Eos # (Auto) Baso # (Auto) PT 14.9 INR 1.15 PTT (Actin FS) 32.1 Sodium Potassium Chloride Carbon Dioxide Anion Gap BUN Creatinine Estimated GFR/1.73 m2 BUN/Creatinine Ratio Glucose POC Glucose Calculated Osmolality Calcium Total Bilirubin AST ALT Alkaline Phosphatase Troponin T < 0.010 Total Protein Albumin Globulin Albumin/Globulin Ratio Urine Source CATH Urine Color YELLOW Urine Turbidity HAZY Urine pH 5.5 Ur Specific [place] 1.030 Urine Protein 30 A Ur Glucose (Stick) NEGATIVE Ur Ketones (Stick) TRACE A Urine Blood NEGATIVE Urine Nitrite NEGATIVE Urine Bilirubin SMALL A Urobilinogen Dipstick 4 A Urine Leukocytes NEGATIVE Urine WBC (Auto) <10 Urine RBC (Auto) <10 U Epithel Cells (Auto) <10 Urine Bacteria (Auto) NEGATIVE Urine Crystals Not Reportable Small Round Cells Not Reportable Urine Casts Not Reportable Urine Yeast-like Cells NONE SEEN Urine Opiates Screen Ur Oxycodone Screen Ur Methadone, Qual Ur Barbiturates Screen Ur Phencyclidine Scrn Ur Amphetamines Screen U Benzodiazepines Scrn Urine Cocaine Screen U Cannabinoids Screen 08/18/19 16:17 WBC RBC Hgb Hct MCV MCH MCHC RDW Std Deviation Plt Count MPV Immature Gran % (Auto) Neut % (Auto) Lymph % (Auto) Kings % (Auto) Eos % (Auto) Baso % (Auto) Immature Gran # (Auto) Neut # (Auto) Lymph # (Auto) Kings # (Auto) Eos # (Auto) Baso # (Auto) PT INR PTT (Actin FS) Sodium Potassium Chloride Carbon Dioxide Anion Gap BUN Creatinine Estimated GFR/1.73 m2 BUN/Creatinine Ratio Glucose POC Glucose Calculated Osmolality Calcium Total Bilirubin AST ALT Alkaline Phosphatase Troponin T Total Protein Albumin Globulin Albumin/Globulin Ratio Urine Source Urine Color Urine Turbidity Urine pH Ur Specific [place] Urine Protein Ur Glucose (Stick) Ur Ketones (Stick) Urine Blood Urine Nitrite Urine Bilirubin Urobilinogen Dipstick Urine Leukocytes Urine WBC (Auto) Urine RBC (Auto) U Epithel Cells (Auto) Urine Bacteria (Auto) Urine Crystals Small Round Cells Urine Casts Urine Yeast-like Cells Urine Opiates Screen NONE DETECTED Ur Oxycodone Screen NONE DETECTED Ur Methadone, Qual NONE DETECTED Ur Barbiturates Screen NONE DETECTED Ur Phencyclidine Scrn NONE DETECTED Ur Amphetamines Screen NONE DETECTED U Benzodiazepines Scrn NONE DETECTED Urine Cocaine Screen NONE DETECTED U Cannabinoids Screen NONE DETECTED Orders Category Date Time Status Cardiac Monitoring DIRECTED Care 08/18/19 15:25 Active Finger Stick Blood Sugar (ED) DIRECTED Care 08/18/19 15:25 Completed Misc. NRSG Communication Order DIRECTED Care 08/18/19 15:25 Active Saline Loc NOW Care 08/18/19 15:25 Active CHEST-PORTABLE [RAD] Stat Exams 08/18/19 15:[address] HEAD W/O CONTRAST [CT] Stat Exams 08/18/19 15:18 Completed CBC WITH ELECTRONIC DIFF [HEME] Stat Lab 08/18/19 15:28 Completed COMPREHENSIVE METABOLIC PANEL [CHEM] Stat Lab 08/18/19 15:28 Completed PROTIME WITH INR [COAG] Stat Lab 08/18/19 15:28 Completed PTT [COAG] Stat Lab 08/18/19 15:28 Completed TROPONIN T Stat Lab 08/18/19 15:28 Completed URINALYSIS W/POSS RFLX CULT [URINALYSIS] Stat Lab 08/18/19 16:17 Completed URINE DRUG SCREEN Stat Lab 08/18/19 16:17 Completed URINE MANUAL MICROSCOPIC [URINALYSIS] Stat Lab 08/18/19 16:17 Completed 0.9% Sodium Chloride Inj [Ns] 1,000 ml Med 08/18/19 15:25 Active IV 150 mls/hr EKG [EKG] Stat Ther 08/18/19 15:25 Draft Result Diagrams: 08/18/19 15:28 08/18/19 15:28 - EKG 1 Time of EKG reading by physician:: 15:22 EKG Read and Signed by:: Nakul Che EKG Interpretation (*Must complete 3 of following elements*): Abnormal Rate: 107 Rhythm: sinus tachycardia [place]: normal QRS: LVH (with repolarization abnormality.) [place] Interval: normal Comments: abnormal ECG - XRAY 1 XRAY Study: Chest Impression: See EMR Report (EXAM: CHEST-PORTABLE INDICATION: stroke like symptoms TECHNIQUE: One view COMPARISON: 04/23/2019 FINDINGS: There is a stable calcified granuloma at the right lower lung zone. The lungs are grossly clear. There is no discrete pleural fluid collection or pneumothorax. The cardiomediastinal silhouette and central vasculature are grossly unremarkable. IMPRESSION: No evidence of acute pathology by plain radiograph. Electronically signed by Eleuterio Burroughs 08/18/2019 3:49 PM 08/18/19 1549 Interpreting Physician: Eleuterio Burroughs MD Dictated Date/Time: 08/18/19 1549 cc: Nakul Che MD; Gian Bacon MD) - CT/MRI 1 CT Study: Head Impression: See EMR Report ( EXAM: CT HEAD W/O CONTRAST INDICATION: stroke like symptoms TECHNIQUE: This exam was performed using automated exposure control, adjustment of mA or kV according to patient size, and/or use of iterative reconstruction technique. COMPARISON: CT and MRI dated 04/23/2019 FINDINGS: There is multifocal encephalomalacia involving the left frontal, left occipital, and left parietal lobe that appears to correspond to areas of acute infarct seen on the prior MRI. There is a stable chronic lacunar infarct involving the thalamus on the right. There is patchy mild to moderate periv entricular white matter microangiopathy that is stable. There is no definite acute infarct given the limited sensitivity of CT versus MRI. There is no discrete intracranial mass, mass effect, or intracranial hemorrhage. The surrounding soft tissues and bony structures are essentially unremarkable. IMPRESSION: Multifocal encephalomalacia on the left that appears to correspond with acute infarct seen on the prior MRI. No definite acute intracranial pathology by CT. Electronically signed by Eleuterio Burroughs 08/18/2019 3:47 PM 08/18/19 1547 Interpreting Physician: Eleuterio Burroughs MD Dictated Date/Time: 08/18/19 0167 cc: Nakul Che MD; Gian Bacon MD) - CONSULTS/PCP/HOSPITALIST Notification #1 *Consult/PCP/Hospitalist*: SOFI Vasquez for Hospitalist Time Discussed: 17:05 (Dr. Jose accepted admit ) Reason/Comments: Dr. Che consulted with Christina about patient Consult Disposition: Will see in ED, Admit Departure - Departure Date of Disposition Decision: 08/18/19 Time of Disposition Decision: 17:05 DIAGNOSIS: CVA (cerebral vascular accident) Disposition: ADMITTED INPATIENT Certified Medical Emergency: Emergent Condition: Stable Referrals and Follow-Ups: Gian Bacon MD [Primary Care Provider] - - Critical Care Note This patient required my direct & personal management of CC.: No Attestation - Physician/ NUVIA Attestation The physician spent face to face time with patient:: Yes Advanced Practice Provider documentation review:: Supervising physician onsite a nd consulted in the evaluation and care of this patient. The physician did have a face to face encounter with the patient. - NIH Stroke Scale NIH Type: Initial Evaluation Level of Consciousness: 0-Alert LOC Questions (ask month and age): 2-Both Incorrect LOC Commands (ask to open & close eyes;make a fist, let go): 2-Both Incorrect Best Gaze (horizontal eye movement): 0-Normal Facial Palsy (show teeth or raise eyebrows & close eyes tght: 0-Symmetrical Movement Motor Function-left arm: 0-Normal Motor Function-right arm: 2-Some Effort Against [place] Motor Function-left le-Normal Motor Function-right le-No Effort Against [place] Limb Ataxia([id number], or heel to gallagher): 1-Present in one limb Sensory(pin prick to face,arms,trunk,legs-compare side/side): 2-Severe to Total Sensory Loss Best Language(name item/read sentence.Ex-Down to Earth): 3-Mute Dysarthria(Pt read words or say words Ex.Mama,Tip-Top,Thanks: 2-Near Unintelligible Extinction and Inattention: 1-Partial Neglect NIH Total Score: 18 Stroke tPA Guidelines - Inclusion Criteria for IV tPA 18 years old or older: Yes Ischemic stroke with measurable deficit: Yes Onset <3 hours ago *OR* 3-4.5 hours ago: Yes (3.5 hours) - Exclusion Criteria for IV tPA Evidence of intracranial hemorrhage on CT: No Presentation suggest SAH: No CT reveals defined area of hypodensity: Yes Evidence of AVM, neoplasm, aneurysm: No Seizure at stroke onset: No Active internal bleeding or acute trauma: No Platelet Count Less Than 100,000: No Heparin Within Last 48 HRS (PTT >Lab normal limits): No INR > 1.7 (warfarin use): No Use IIB/IIIA inhibitors within 24 hours: No Serious Head Trauma Within Last 3 Months: No Arterial Puncture Within Last 7 Days: No Lumbar Puncture Within Last 7 Days: No Repeated systolic Blood Pressure >185 or Diastolic >110: No - Additional Exclusion Criteria for IV tPA Currently on Coumadin: No Patient older than 80: No Prior stroke and diabetes: No Baseline NIHSS score > 25: No - Relative Contraindications to IV tPA Blood Glucose Less Than 50 mg/dl or Greater Than 400 mg/dl: No This chart was documented by the indicated scribe, (Ara Garcia Scribe) and accurately reflects the services I performed and decisions made by Chinedu kelly Alex T., MD, as attested by the provider's signature.
--- NOTE | 2019-08-20 16:10 | PROGRESS NOTE ---
DATE: 08/20/2019 SUBJECTIVE: The patient is more awake and alert today. She is speaking a little bit more than she was on the day of admission. OBJECTIVE: Vital Signs: Temperature 98 degrees, blood pressure 148/74, heart rate 93, respirations 18, O2 saturation 97% on room air. General: This is a chronically ill-appearing elderly female lying in bed in no acute distress. Head normocephalic atraumatic. Heart: S1, S2 normal. Regular rate and rhythm. Lungs: Clear to auscultation bilaterally. Abdomen: Positive bowel sounds. Soft, nontender, nondistended. Extremities: No edema, no cyanosis. Neuro: The patient is alert and oriented x3. The patient has expressive aphasia. She is weak on the right side. LABS: Hemoglobin 10, hematocrit 33, platelets 46,000. Sodium 138, potassium 4.5, chloride 102, CO2 23, BUN 9, creatinine 0.5, glucose 126. Vitamin D level 19.2. ASSESSMENT AND PLAN: 1. Recurrent multifocal cerebrovascular accident. Will continue on aspirin and Lipitor. The patient is currently undergoing physical therapy. The patient is being evaluated by [facility] for inpatient rehab. 2. 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 The patient has an appointment with Dr. Dameon Jara, a THERAPEUTIC DIETITIAN-oncologist at [facility] on 08/30/2019 at 12:30 p.m. 3. Pancreatic cyst versus neoplasm. The patient will need further imaging as outpatient. Dr. Nunez will follow up with the patient as outpatient. 4. Morbid obesity. Aware. 5. Diabetes mellitus type 2. Continue with sliding scale insulin. 6. Hypertension. Stable. 7. Vitamin D deficiency. Will start the patient on vitamin D replacement. 8. Deep vein thrombosis prophylaxis. Continue on Lovenox. 9. Disposition. The patient is medically stable for discharge to inpatient rehab once the patient has been accepted. Continue with physical therapy. cc: Treasure Jose MD MTDD
[2019-08-20] MEDS: LIPITOR PO SCH (21:11)
[2019-08-21] MEDS: HUMULIN R SUBQ SCH ×4 (06:06→20:52)
[2019-08-21 08:29] LABS: AGAP 12; BUN 9 mg/dL (8-22); CALCIUM 9.3 mg/dL (8.8-10.2); CHLORIDE 100 mmol/L (98-107); COSMO 268; CREATININE 0.5 mg/dL (0.5-0.9); ESTIMATED GFR > 60; GLUCOSE 123 mg/dL (70-104); POTASSIUM 4.1 mmol/L (3.5-5.1); SODIUM 134 mmol/L (136-145); TCO2 22 mmol/L (25-35)
[2019-08-21] MEDS: ASPIRIN PO SCH (11:11)
[2019-08-21] MEDS: LOVENOX SUBQ SCH (15:00)
--- NOTE | 2019-08-21 17:17 | PROGRESS NOTE ---
DATE: 08/21/2019 SUBJECTIVE: The patient is resting comfortably in bed. No acute events noted overnight. OBJECTIVE: Vital Signs: Temperature 98.4 degrees, blood pressure 166/70, heart rate 101, respirations 22, O2 saturation 97% on room air. General: This is a chronically ill-appearing elderly female lying in bed in no acute distress. Heart: S1, S2 normal. Tachycardic. Lungs: Clear to auscultation bilaterally. Abdomen: Positive bowel sounds. Soft, nontender, nondistended. Extremities: No edema, no cyanosis. Neuro: The patient is alert and oriented. She continues to have expressive aphasia. She does have right-sided weakness. LABS: Reviewed. ASSESSMENT AND PLAN: 1. Recurrent multifocal cerebrovascular accidents. Will continue on aspirin and Lipitor. Continue with physical therapy and occupational therapy. We are currently awaiting inpatient rehab placement. 2. 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 The patient has an appointment with Dr. Dameon Jara at [facility] on 08/30/2019 at 12:30 p.m. 3. Pancreatic cyst versus neoplasm. Aware. Will arrange for the patient to follow up with Dr. Nunez as outpatient. 4. Morbid obesity. Aware. 5. Diabetes mellitus type 2. Continue with sliding scale insulin. 6. Hypertension. Stable. 7. Vitamin D deficiency. Continue with vitamin D replacement. 8. Deep vein thrombosis prophylaxis. Continue on Lovenox. 9. Disposition. The patient is medically stable for discharge to inpatient rehab once a bed is available. cc: Treasure Jose MD MTDD
[2019-08-21] MEDS: LIPITOR PO SCH (21:46)
[2019-08-22] MEDS: HUMULIN R SUBQ SCH ×4 (06:35→21:00)
[2019-08-22 07:49] LABS: AGAP 12; BUN 10 mg/dL (8-22); CALCIUM 10.1 mg/dL (8.8-10.2); CHLORIDE 102 mmol/L (98-107); COSMO 277; CREATININE 0.5 mg/dL (0.5-0.9); ESTIMATED GFR > 60; GLUCOSE 133 mg/dL (70-104); POTASSIUM 4.1 mmol/L (3.5-5.1); SODIUM 138 mmol/L (136-145); TCO2 24 mmol/L (25-35)
[2019-08-22] MEDS: ASPIRIN PO SCH (10:23)
--- NOTE | 2019-08-22 10:46 | PROGRESS NOTE ---
DATE: 08/22/2019 SUBJECTIVE: The patient is resting comfortably in bed. No acute events noted overnight. OBJECTIVE: Vital Signs: Temperature 98.6 degrees, blood pressure 145/80, heart rate 95, respirations 20, O2 saturation 97% on room air. General: This is a chronically ill-appearing elderly female, lying in bed, in no acute distress. Heart: S1, S2 normal, regular rate and rhythm. Lungs: Equal air entry bilaterally. No wheezing. No rales. No rhonchi. Abdomen: Positive bowel sounds. Soft, nontender, nondistended. Extremities: No edema, no cyanosis, no calf tenderness. Neurologic: The patient is alert and oriented x3. She does have expressive aphasia with right hemiparesis. LABS: Sodium 138, potassium 4.1, chloride 102, CO2 24, BUN 10, creatinine 0.5, glucose 133. ASSESSMENT AND PLAN: 1. Recurrent multifocal cerebrovascular accident. Continue on aspirin and Lipitor. Continue with physical therapy. 2. 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 The patient has an appointment with Dr. Dameon Andino at [facility] on 08/30/2019 at 12:30 p.m. 3. Pancreatic cyst versus neoplasm. The patient will follow up with Dr. Nunez as outpatient. 4. Morbid obesity. Aware. 5. Hypertension. We will restart Lopressor. 6. Diabetes mellitus type 2. Continue on sliding scale insulin. 7. Vitamin D deficiency. Continue with vitamin D replacement. 8. Deep vein thrombosis prophylaxis. Continue on Lovenox. 9. Disposition. The patient is medically stable for discharge to inpatient rehab once a bed is available. cc: Treasure Jose MD [facility]
[2019-08-22] MEDS: TOPROL XL PO SCH (12:00)
[2019-08-22] MEDS: LOVENOX SUBQ SCH (14:00)
[2019-08-22] MEDS: LIPITOR PO SCH (20:33)
[2019-08-23] MEDS: HUMULIN R SUBQ SCH ×2 (06:04→11:15)
[2019-08-23] MEDS: TOPROL XL PO SCH (10:24)
[2019-08-23] MEDS: ASPIRIN PO SCH (10:24)
[2019-08-23 11:04] VITALS: BP 154/86
--- NOTE | 2019-08-23 13:59 | DISCHARGE SUMMARY ---
ADMISSION DATE: 08/18/2019 DISCHARGE DATE: 08/23/2019 FINAL DISCHARGE DIAGNOSES: 1. Recurrent multifocal cerebrovascular accident. 2. 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 3. Pancreatic cyst versus neoplasm. 4. Morbid obesity. 5. Hypertension. 6. Diabetes mellitus type 2. 7. Vitamin D deficiency. 8. Anemia of chronic disease. CONSULTATIONS: 1. Neurology consultation with Dr. Palomares. 2. EMPLOYMENT PROGRAMS ANALYST consultation with Dr. Negron. 3. Rheumatology consultation with Dr. Garcia. IMAGIN. Head CT performed on 08/18/2019 that revealed multifocal encephalomalacia on the left, which appears to correspond with an acute infarct. 2. Brain MRA performed on 08/19/2019 that revealed multifocal stenosis at the M1 segment of the left MCA, as well as the left ARCHITECTURAL DRAFTSMAN. 3. Brain MRI performed on 08/19/2019, which revealed multifocal acute infarcts. 4. Neck MRA, which was normal. 5. Pelvic ultrasound, which revealed an extremely large-complex lower abdominal and pelvic mass that measures 6.6 x 3.4 x 3 cm. HOSPITAL COURSE: Ms. Abrams is a 63-year-old female with a history of a prior multifocal stroke, hypertension, diabetes, and an ovarian mass, who presented to the ER with a chief complaint of expressive aphasia and right-sided weakness. Upon arrival to the ER, a head CT was done that revealed multifocal changes in the left frontal, occipital, and parietal lobes that were consistent with acute infarct. The patient was admitted to the Hospitalist Service, and Neurology was consulted. The patient had been admitted back in 03/2019 with multifocal stroke at that time, where she had a complete neurologic workup. At that time, she was also diagnosed with a large complex ovarian mass. At the time of discharge, the patient was instructed to follow up with EMPLOYMENT PROGRAMS ANALYST Oncology as well as Medical Oncology. An MRI of the brain was done, which confirmed multifocal acute infarcts. Also, the patient had a CT of the abdomen and pelvis done 5 days prior to admission that revealed that the complex cystic mass had increased in size. EMPLOYMENT PROGRAMS ANALYST was consulted, who recommended EMPLOYMENT PROGRAMS ANALYST Oncology evaluation. The patient was seen by Physical Therapy and Occupational Therapy during the hospital stay, as well as Speech Therapy. The patient was also seen by the neurologist, who agreed with continuing on aspirin and Lipitor. The patient did well with physical therapy, and it was recommended that she be referred for inpatient rehabilitation. The patient was ultimately accepted at [facility] in [place] for further physical therapy. The patient has an appointment with Dr. Dameon Jara at [facility] on 08/30/2019 at 12:30 p.m. DISCHARGE MEDICATIONS: 1. Lipitor 40 mg oral at bedtime. 2. Aspirin 325 mg oral daily. 3. Vitamin D2, 50,000 units oral every 7 days. 4. Toprol-XL 50 mg p.o. daily. 5. Zestril 20 mg p.o. daily. 6. Glucophage 500 mg oral twice a day. DISCHARGE DIET: An 1800-ADA diet, low sodium, low cholesterol. ACTIVITY: As tolerated. FOLLOWUP INSTRUCTIONS: The patient is scheduled to follow up with Dr. Dameon Jara on 08/30/2019 at 12:30 p.m. The patient will also need to follow up with Dr. Nunez upon discharge from inpatient rehabilitation to further assess the pancreatic mass seen on the CT. cc: MD Gian Hollis MD MTDD
[2019-08-23] MEDS: LOVENOX SUBQ SCH (14:58)
== END 2019-08-23 15:13 | DRG 64 ==
LOC: ED 15:06 → EDIPHOLD 17:58 → 3N 20:42
PROVIDERS: ATTEND Internal Medicine

== ENCOUNTER 2019-10-08 15:35 | Inpatient (IN) ==
[2019-10-26 15:48] VITALS: BP 146/77
== END 2019-10-26 17:12 | DRG 870 ==
LOC: SUPCPDRO → ED 15:35 → ICU 18:09 → SUATTDRO 18:09 → 2N 10-15 15:08
PROVIDERS: ATTEND Internal Medicine

== ENCOUNTER 2019-11-08 11:34 | Inpatient (IN) ==
--- NOTE | 2019-11-08 12:45 | Diag Imaging Result Doc PS360 ---
EXAM: CHEST-PORTABLE 11/08/2019 HISTORY: Altered Mental Status TECHNIQUE: AP portable at 1240 COMMENT: The inspiration is somewhat suboptimal. It is better than on the previous study however and the opacity previously demonstrated in the left lower lobe has largely resolved. There has been no significant change in the appearance the chest since 10/22/2019 otherwise. IMPRESSION: Improved atelectasis or pneumonia left lower lobe. Electronically signed by Bairon Resendez 11/08/2019 12:43 PM
--- NOTE | 2019-11-08 13:00 | Diag Imaging Result Doc PS360 ---
EXAM: CT HEAD W/O CONTRAST HISTORY: Head injury TECHNIQUE: CT head without contrast COMPARISON: 10/09/2019 FINDINGS: There is a large left sided infarct involving the posterior frontal lobe, temporal lobe, parietal lobe and anterior occipital. This was present on the prior exam. There is a 13 mm area of increased density posteriorly in the left occipital lobe which may represent a small hemorrhage. No epidural or subdural hematoma. No midline shift. No hydrocephalus. No skull fracture. IMPRESSION: Old left infarct with what appears to be a small parenchymal hemorrhage in the left occipital lobe. This report was discussed with Dr. Mcginnis in the emergency room on 11/08/2019 at 12:55 PM and was readback. This exam was performed using automated exposure control, adjustment of mA or kV according to patient size, and/or use of iterative reconstruction technique. Electronically signed by Karson Gomez 11/08/2019 12:58 PM
[2019-11-08 13:02] LABS: ALLEN TEST YES; BE 4.7 mmoll (-3.0-3.0); BLOOD TYPE ARTERIAL; HCO3-(ACT) 28.5 mmoll (20.0-26.0); METHB 1.4 % (0.0-1.5); O2(CT) 12.8 mL/dL (15.0-23.0); O2HB 93.9 % (95.0-99.0); PCO2(98.6) 36 mmHg (35-45); PO2(98.6) 73 mmHg (60-100); SAMPLE BLOOD; SAO2 97.4 % (95.0-100.0); THB 9.6 g/dL (11.5-17.4)
[2019-11-08 13:03] LABS: MODALITY ROOM AIR
[2019-11-08 13:20] LABS: BASO# 0.03 X1000 (0.0-0.2); BASO% 0.2 % (0.0-0.8); EOS# 0.37 X1000 (0.0-0.7); EOS% 2.9 % (0.0-10.0); HEMATOCRIT 34.4 % (37.0-47.0); HEMOGLOBIN 10.1 g/dL (12.0-16.0); IMM GRAN# 0.03 X1000 (0.0-0.04); IMM GRAN% 0.2 % (0.0-0.5); LYMPH% 13.5 % (20.5-51.1); MCH 26.4 PG (27-31); MCHC 29.4 g/dL (33-37); MCV 89.8 FL (81-99); MONO# 0.52 X1000 (0.11-0.59); MONO% 4.1 % (1.7-9.3); MPV 10.4 FL (7.4-10.4); NEUT# 9.97 X1000 (1.4-6.5); NEUT% 79.1 % (42.2-75.2); PLT 560 X1000 (130-400); RBC 3.83 XMIL (4.2-5.4); RDW 16.2 % (11.5-14.5); WBC 12.62 X1000 (4.8-10.8)
[2019-11-08 13:43] LABS: INR 1.17; PROTIME 15.1 Seconds (11.0-16.0)
[2019-11-08 13:44] LABS: PTT 36.4 Seconds (22.3-41.8)
--- NOTE | 2019-11-08 14:09 | EKG Report ---
Test Performed on : 11/08/2019 1:45:22 PM Test Reason : CP Blood Pressure : / mmHG Vent. Rate : 088 BPM Atrial Rate : 088 BPM P-R Int : 134 ms QRS Dur : 084 ms QT Int : 352 ms P-R-T Axes : 049 040 063 degrees QTc Int : 425 ms Normal sinus rhythm. Normal ECG When compared with ECG of 19-OCT-2019 14:33, Nonspecific T wave abnormality no longer evident in Inferior leads T wave inversion no longer evident in Anterior leads Unconfirmed Result
[2019-11-08 14:12] LABS: ALB/GLOB RATIO 1.1; ALBUMIN 3.1 g/dL (3.5-5.0); CALCIUM 11.1 mg/dL (8.8-10.2); CREATININE 4.2 mg/dL (0.5-0.9); POTASSIUM 6.8 mmol/L (3.5-5.1); TOTAL BILIRUBIN 0.16 mg/dL (0.20-1.00)
[2019-11-08] MEDS ORDERED: CALCIUM GLUCONATE 2 GM in NS 100 ML IV ONE (14:23)
[2019-11-08] MEDS ORDERED: SODIUM BICARBONATE 8.4% IV PUSH ONE (14:25)
[2019-11-08] MEDS ORDERED: HUMULIN R IV ONE (14:35)
[2019-11-08] MEDS ORDERED: D50W SYRINGE IV ONE (14:36)
[2019-11-08] MEDS ORDERED: KAYEXALATE PR ONE (15:22)
[2019-11-08] MEDS ORDERED: ALBUTEROL NEB INH ONE (15:23)
[2019-11-08 15:52] LABS: URINE SOURCE CLEAN CATCH
[2019-11-08 15:59] LABS: BILIRUBIN URINE NEGATIVE (NEGATIVE); BLOOD URINE TRACE (NEGATIVE); COLOR YELLOW; GLUCOSE URINE NEGATIVE (NEGATIVE); KETONE URINE NEGATIVE (NEGATIVE); LEUKOCYTES URINE LARGE (NEGATIVE); NITRITE URINE NEGATIVE (NEGATIVE); PROTEIN URINE 100 mg/dL (NEGATIVE); TURBIDITY URINE HAZY (CLEAR); UROBILINOGEN URINE NORMAL (NORMAL)
[2019-11-08 16:00] LABS: UR EPITHELIAL CELLS <10 /HPF (<10); URINE BACTERIA NEGATIVE /HPF; URINE RBC <10 /HPF (<10); URINE WBC TNTC /HPF (<10)
--- NOTE | 2019-11-08 16:02 | PROVIDER DOCUMENTATION ---
This chart was entered by Ara Garcia Scribe, acting as scribe for Adarsh Lara MD. HPI-General Adult - General Chief Complaint: Abnormal Lab[s] Stated Complaint: ABNORMAL LABS Time Seen by Provider: 11/08/19 11:56 Source: RN/ (RN) Allergies/Adverse Reactions: Patient Allergies Allergy/AdvReac Type Severity Reaction Status Date / Time Sulfa (Sulfonamide Allergy RASH Verified 11/08/19 13:17 Antibiotics) Home Medications: Home Medication List Medication Instructions Recorded Confirmed Last Taken Type Metformin E.r. [Glucophage Xr] 500 mg PEG BID 08/18/19 11/08/19 11/08/19 08:00 History Lactulose 30 ml PEG BID 09/17/19 11/08/19 11/08/19 08:00 History Oxcarbazepine [Trileptal] 1 tab PEG BID 09/17/19 11/08/19 11/08/19 08:00 History Sertraline HCl 1 tab PEG QHS 09/17/19 11/08/19 11/07/19 20:00 History ATORVAstatin [Lipitor] 40 mg PEG QHS 11/08/19 11/08/19 11/07/19 20:00 History Amlodipine Besylate 5 mg PEG QPM 11/08/19 11/08/19 11/07/19 20:00 History Arginine/Glutamine/Calcium Bmb 1 ea PEG BID 11/08/19 11/08/19 11/08/19 09:00 History [David Packet] Aspirin 325 mg PEG DAILY 11/08/19 11/08/19 11/08/19 08:00 History Menthol/Zinc Oxide Ointment 1 applicatn TOP DAILY 11/08/19 11/08/19 11/08/19 07:00 History [Calmoseptine Ointment] Metoprolol [Lopressor] 25 mg PEG BID 11/08/19 11/08/19 11/08/19 08:00 History Nut.tx.gluc Intol,Lf,Soy/Fiber 2,000 ml PEG DAILY 11/08/19 11/08/19 11/08/19 07: 00 History [Glucerna 1.5 Isiah Liquid] Tamsulosin [Flomax] 0.4 mg PEG DAILY 11/08/19 11/08/19 11/08/19 08:00 History Vit C/Ascorbate Calcium,Sodium 500 mg PEG BID 11/08/19 11/08/19 11/08/19 09:00 History [Vitamin C 500 mg/15 ml Liquid] Zinc Sulfate 220 mg PEG BID 11/08/19 11/08/19 11/08/19 09:00 History - History of Present Illness -Gen Adult Nature of Presenting Problems: Patient is a 63 year old female who presents to the ED via EMS with abnormal labs. RN states SNF stated patient had elevated BUN, creatinine, and potassium. RN states SNF stated patient has a history of stage 3 renal failure. RN reports SNF stated patient is nonverbal due to CVA last month. RN states SNF did not report a change in patient's mental status. Onset/Duration: reports: gradual Timing: reports: still present Recently seen or treated by another doctor?: Yes Review of Systems - Adult - REVIEW OF SYSTEMS - ADULT ROS:: unobtainable per condition Constitutional: reports: no symptoms reported Eyes: reports: no symptoms reported Ears, Nose, Mouth & Throat: reports: no symptoms reported Cardiovascular: reports: no symptoms reported Respiratory: reports: no symptoms reported Gastrointestinal: reports: no symptoms reported Genitourinary: reports: no symptoms reported Musculoskeletal: reports: no symptoms reported Integumentary: reports: no symptoms reported Neurological: reports: no symptoms reported Psychiatric: reports: no symptoms reported Endocrine: reports: no symptoms reported Hematologic/Lymphatic: reports: no symptoms reported Allergic/Immunologic: reports: no symptoms reported All Other Systems: Reviewed and Negative Past History - Adult - PAST MEDICAL HISTORY-ADULT Review of Records: reports: Old Records Reviewed, Nursing Assessment Review Major Childhood Illnesses: reports: denies history Cardiovascular: reports: HTN, hyperlipidemia Respiratory: reports: denies history Gastrointestinal: reports: denies history Obstetrical/Gynecological: reports: denies history Genitourinary: reports: denies history Musculoskeletal: reports: denies history Neurological: reports: CVA Endocrine/Immune: reports: Diabetes Other Conditions: reports: denies history - PRIOR SURGERIES/PROCEDURES Surgical/Procedure History: reports: joint replacement (bilateral knees) - IMMUNIZATION STATUS Childhood Immunizations: See Nurse Assessment Flu Vaccine: See Nurse Assessment - FAMILY HISTORY Family History: reviewed, not pertinent - SOCIAL HISTORY Living Situation: care facility (SNF) Physical Exam-General - PHYSICAL EXAM-ADULT Initial Vital Signs Reviewed: Yes - CONSTITUTIONAL General Appearance: no apparent distress, other (somnolent. response to painful stimuli. opens eyes spontaneously.) - EYES Eyes: other (pupils reactive bilaterally.). negative: scleral icterus, sunken eyes - HEAD, EARS, NOSE, MOUTH & THROAT HENMT: normocephalic/atraumatic, moist mucous membranes - NECK Neck: non-tender, normal inspection. negative: other (mass) - RESPIRATORY Respiratory: rales (slight rales to right.). negative: respiratory distress, wheezing - CARDIOVASCULAR Cardiovascular: regular rate, rhythm, no edema. negative: tachycardia - GASTROINTESTINAL (ABDOMEN) Abdominal Exam: soft. negative: rigid, tenderness - MUSCULOSKELETAL Extremity: other (edema to RUE. no purposeful movement to RUE and RLE. no respond to pain on RUE) - SKIN Integumentary: normal color, warm/dry. negative: diaphoresis, pallor, rash - NEUROLOGIC Neurologic: other (unable to assess per patient's condition. There is no movement of the RUE or RLE, the patient does move her RUE) - PSYCHIATRIC Psych/Mental Status: other (somnolent.). negative: anxious, tearful Progress - PLAN OF CARE/RESULTS Progress/Plan/Lab Results: Vital Signs - 8 hr 11/08/19 12:03 Temperature 98.7 F Pulse Rate 81 Respiratory Rate 19 Blood Pressure 151/92 O2 Sat by Pulse Oximetry 96 1246 - Dr. Lara consulted with [facility] staff about patient. Staff stated patient's baseline is nonverbal, does not follow commands and right side paralysis. Staff states they want the patient admitted for abnormal labs. Result Diagrams: 11/08/19 13:04 11/08/19 13:04 - REASSESSMENT Reassessment #1 Status: other (Hyperkalemia noted. Treatments iniciated. Discussed the case with hospitalist who has accepted the patient. Will plan to trial briones catheter.) Reassessment #2 Status: other (Briones place without difficulty by nursing with 1.3L output.) - EKG 1 Time of EKG reading by physician:: 13:45 EKG Read and Signed by:: Regi Salazar EKG Interpretation (*Must complete 3 of following elements*): Normal Rate: 88 Rhythm: normal sinus rhythm Moro: normal QRS: normal AK Interval: normal ST Wave: normal Comments: normal ECG - XRAY 1 XRAY Study: Chest Impression: See EMR Report ( EXAM: CHEST-PORTABLE 11/08/2019 HISTORY: Altered Mental Status TECHNIQUE: AP portable at 1240 COMMENT: The inspiration is somewhat suboptimal. It is better than on the previous study however and the opacity previously demonstrated in the left lower lobe has largely resolved. There has been no significant change in the appearance the chest since 10/22/2019 otherwise. IMPRESSION: Improved atelectasis or pneumonia left lower lobe. Electronically signed by Bairon Resendez 11/08/2019 12:43 PM 11/08/19 1243 Interpreting Physician: Bairon Resendez MD Dictated Date/Time: 11/08/19 1242 cc: Adarsh Lara MD; Gian Bacon MD) - CT/MRI 1 CT Study: Head Impression: See EMR Report ( EXAM: CT HEAD W/O CONTRAST HISTORY: Head injury TECHNIQUE: CT head without contrast COMPARISON: 10/09/2019 FINDINGS: There is a large left sided infarct involving the posterior frontal lobe, temporal lobe, parietal lobe and anterior occipital. This was present on the prior exam. There is a 13 mm area of increased density posteriorly in the left occipital lobe which may represent a small hemorrhage. No epidural or subdural hematoma. No midline shift. No hydrocephalus. No skull fracture. IMPRESSION: Old left infarct with what appears to be a small parenchymal hemorrhage in the left occipital lobe. This report was discussed with Dr. Lara in the emergency room on 11/08/2019 at 12:55 PM and was readback. This exam was performed using automated exposure control, adjustment of mA or kV according to patient size, and/or use of iterative reconstruction technique. Electronically signed by Karson Gomez 11/08/2019 12:58 PM 11/08/19 1258 Interpreting Physician: Karson Gomez MD Dictated Date/Time: 11/08/19 1253 cc: Adarsh Lara MD; Gian Bacon MD) - CONSULTS/PCP/HOSPITALIST Notification #1 *Consult/PCP/Hospitalist*: Dr. Gomez Time Discussed: 13:00 Reason/Comments: Dr. Lara consulted with Dr. Gomez about patient's CT scan. Consult Disposition: other (Dr. Gomez states patient's head CT shows a likely resolving hemorrhage.) #2 Consult: Dr. Gomez Time Discussed: 14:34 Reason/Comments: Dr. Lara consulted with Dr. Gomez about patient's CT scan. Consult Disposition: other (Dr. Gomez states bleed is not worsening or growing as compared to prior CT) #3 Consult: SOFI Vasquez for Hospitalist Time Discussed: 14:52 (Dr. Richter accepted patient. ) Reason/Comments: Dr. Lara consulted with Christina about patient Consult Disposition: Will see in ED, Admit Departure - Departure Date of Disposition Decision: 11/08/19 Time of Disposition Decision: 15:21 DIAGNOSIS: Hyperkalemia Acute renal failure Qualifiers: Acute renal failure type: unspecified Qualified Code(s): N17.9 - Acute kidney failure, unspecified Disposition: ADMITTED INPATIENT 09 Certified Medical Emergency: Emergent Condition: Serious Referrals and Follow-Ups: Gian Bacon MD [Primary Care Provider] - - Critical Care Note This patient required my direct & personal management of CC.: No Attestation - Physician/ NUVIA Attestation Patient care was provided by Advanced Practice Provider:: No The physician spent face to face time with patient:: Yes Advanced Practice Provider documentation review:: Supervising physician onsite and consulted in the evaluation and care of this patient. The physician did have a face to face encounter with the patient. Glascow Coma Score - Glascow Coma Score Best Eye Response (Mary): (4) open spontaneously Best Verbal Response (Erie): (1) no verbal response Best Motor Response (Mary): (5) localizes to pain Erie Total: 10 This chart was documented by the indicated scribe, (Ara Garcia Scribe) and accurately reflects the services I performed and decisions made by me, Adarsh Lara MD, as attested by the provider's signature.
[2019-11-08] MEDS ORDERED: NS 1,000 ML IV ONE ×2 (16:44→16:45)
--- NOTE | 2019-11-08 18:34 | HISTORY AND PHYSICAL ---
HISTORY: This is a 63-year-old who I believe was at [facility]. In the last 24 hours or so, she has had quite a bit of nausea and been vomiting, and they were concerned about dehydration. She gets tube feeding so they sent her over here. Her doctor is Dr. Gian Bacon. In August, she was diagnosed with acute cerebrovascular accident. Apparently, she had some cerebral bleed, and found to have a complex ovarian cyst or mass, and was discharged on 08/23/2019 to [facility]. They found her unresponsive, and they brought her here. She was I believe intubated. She had acute kidney injury and hyperkalemia, receiving tube feeding I think. At that time, she had a fever of 104. PAST MEDICAL HISTORY: 1. Multifocal CVA. 2. Osteoarthritis. 3. Hypertension. 4. Gastroesophageal reflux disease. 5. Diabetes mellitus type 2. 6. Large complex ovarian mass, cystic mass. PAST SURGICAL HISTORY: 1. Total left knee arthroplasty. 2. Left carpal tunnel release. 3. Apparently, had some type of surgery, old records put down TURP, but we will investigate that more. I think she had a PEG tube placed is maybe what they are eluding to. SOCIAL HISTORY: Old records show that there is no mention of tobacco or alcohol abuse or illicit drugs. She has never been . No children. No family here in this area. Apparently, she has some siblings out of state. Her friend that lives with her has her copy of the Living Will. And apparently has legal guardianship. FAMILY HISTORY: Unknown. ALLERGIES: Sulfa. REVIEW OF SYSTEMS: Really not able to obtain. She has not talked since she was intubated her last CVA. PHYSICAL EXAMINATION: GENERAL: She is awake, eyes are open. Mucous membranes appear to be dry. She is not moving her right arm. VITAL SIGNS: She remains afebrile. Temperature is 98.7 degrees, pulse 80, respirations 19, and blood pressure 151/92. Weight is 150 pounds. Height is 5 feet 3 inches. HEENT: Pupils are equal and round. LUNGS: Clear in all lung woodall. CVP less than 6 cm. No distended neck veins. Carotid, radial and femoral pulses 2+ and symmetrical. Lungs are clear anterolateral. CARDIOVASCULAR: Regular rhythm and rate without murmur or S3. ABDOMEN: Soft. I cannot appreciate any tenderness in the abdomen. No pedal edema. SKIN: Without any rashes. Oral and nasal mucosa unremarkable. NECK: Supple. LABORATORY DATA: White count 65685, hematocrit 34, and platelet count is 560,000. Sodium is 146, potassium 6.8, chloride 102, BUN 101, and creatinine 4.2. Blood sugar 118. CK was 125. Albumin was 3.1. ProTime is 15 with an INR of 1.17. Plasma serum alcohol level was 0. Urine too numerous to count white blood cells, large amount of leukocytes. Blood gas pH is 7.50, pCO2 is 36, pO2 is 73. Chest x-ray shows improved atelectasis or pneumonia in the left lower lobe. I think this was in comparison to last x-ray here on 10/22/2019. Head CT without contrast, old left infarct of what appears to be small parenchymal hemorrhage in the left occipital lobe. ASSESSMENT AND PLAN: 1. Nausea and vomiting appears to be intravascularly volume depleted. Looking back at echocardiogram done in March of this year, her left ventricle was normal with ejection fraction 70 to 75%/. We did not see any significant valvular dysfunction, and do not appreciate any sign of that on exam. We are going to hydrate her with normal saline. We will run in normal saline at 125 mL an hour. In looking back at her x-ray back in October, she had an acute kidney injury back in October, likely from obstruction of a large pelvic mass. Dr. Em had followed her before. This has improved with IV fluids, and they thought she might require ureteral stenting if the labs did not continue to improve so we will get Dr. Em back involved. We may have to get Urology involved as well. I think we probably ought to repeat a renal ultrasound. I noticed hematology was following Dr. Nunez, and he was talking to Dr. Jeremiah Cervantes in [place]. I think they are hoping to get a biopsy of this mass. I do not believe that that has happened yet. 2. Two strokes large cerebrovascular infarct. She no longer communicates, but seems to understand what you are saying and she has a right hemiparesis it appears on exam. 3. History of hypertension. 4. History of gastroesophageal reflux disease. 5. History of diabetes mellitus type 2. We will pattern sugars. 6. Status post left knee arthroplasty. 7. Status post right total knee arthroplasty. She does have a PEG tube in, and is receiving tube feeding. PLAN: In summary, a 63-year-old admitted in August with recurrent multifocal cerebral stroke, known ovarian mass along with pancreatic cyst versus neoplasm. Gynecology has evaluated in August. I think they were set up and scheduled to see at [facility] in August. Apparently, I do not believe she has had a biopsy of this mass yet. She was at rehab, and appeared to get nausea and developed dehydration. There was some concern of whether the ovarian mass could be causing some postobstructive issues so we will check another renal ultrasound. I suspect we will end up having to look at a CT scan, and as far as pursuing biopsies I will get Dr. Nunez involved again since he knows her and to help us with coordinating this. Maybe, we need to get biopsies here locally. We should address her hyperkalemia. In the emergency room, she was given some Kayexalate and some bicarb and an albuterol treatment. We will follow that. We will check electrolytes again in the morning including magnesium. We will look at her T4, TSH, B12, and folate. I think we probably need to check a morning cortisol level. We probably ought to treat her empirically. She is allergic to sulfa drugs or year. Her urine did have quite a bit of sediment. She cannot really tell us about symptoms. When they put a catheter in, they found 1300 mL, so she apparently is not able to void. I suspect we probably ought to get Urology involved already so we will ask Urology to evaluate as well to help us with this. We will treat her empirically. I think we ought to just use Rocephin 1 g ceftriaxone IV now and then q.24 hours. cc: Kota Richter MD MTDD
[2019-11-08] MEDS ORDERED: ZOFRAN IV PRN (19:39)
[2019-11-08] MEDS ORDERED: NON-FORMULARY MED (Arginine/Glutamine/Calcium Bmb [Juven Packet] 1 EA) PEG SCH (21:00)
[2019-11-08] MEDS: NORVASC PEG SCH (21:01)
[2019-11-08] MEDS: ROCEPHIN 1 GM in NS 50 ML IV SCH (21:01)
[2019-11-08] MEDS: LOPRESSOR PEG SCH (21:01)
[2019-11-08] MEDS: HUMALOG SUBQ SCH (21:20)
[2019-11-09] MEDS: NS 1,000 ML IV SCH ×2 (05:21→18:56)
[2019-11-09] MEDS: HUMALOG SUBQ SCH ×3 (06:05→23:01)
--- NOTE | 2019-11-09 07:00 | Diag Imaging Result Doc PS360 ---
EXAM: CHEST-PORTABLE 11/09/2019 HISTORY: follow up TECHNIQUE: AP portable at 0600 COMMENT: There are skinfolds over the left chest. The right hemidiaphragm is elevated as it was on 11/08/2019. There may be a minimal degree of atelectasis over the right base. Overall there has been no significant change since the previous study. IMPRESSION: Stable chest. Electronically signed by Bairon Resendez 11/09/2019 6:57 AM
[2019-11-09 07:59] LABS: ALBUMIN 2.9 g/dL (3.5-5.0); CALCIUM 11.2 mg/dL (8.8-10.2); CREATININE 2.5 mg/dL (0.5-0.9); PHOSPHORUS 3.9 mg/dL (2.7-4.5); POTASSIUM 5.7 mmol/L (3.5-5.1)
[2019-11-09 08:15] LABS: BASO# 0.04 X1000 (0.0-0.2); BASO% 0.4 % (0.0-0.8); EOS# 0.38 X1000 (0.0-0.7); EOS% 3.5 % (0.0-10.0); HEMATOCRIT 33.9 % (37.0-47.0); HEMOGLOBIN 9.7 g/dL (12.0-16.0); IMM GRAN# 0.02 X1000 (0.0-0.04); IMM GRAN% 0.2 % (0.0-0.5); LYMPH# 1.72 X1000 (1.2-3.4); LYMPH% 15.9 % (20.5-51.1); MCH 26.5 PG (27-31); MCHC 28.6 g/dL (33-37); MCV 92.6 FL (81-99); MONO# 0.57 X1000 (0.11-0.59); MONO% 5.3 % (1.7-9.3); MPV 10.4 FL (7.4-10.4); NEUT# 8.07 X1000 (1.4-6.5); NEUT% 74.7 % (42.2-75.2); PLT 559 X1000 (130-400); RBC 3.66 XMIL (4.2-5.4); RDW 16.5 % (11.5-14.5)
--- NOTE | 2019-11-09 08:39 | Diag Imaging Result Doc PS360 ---
EXAM: US RENAL 2 (RETROPER) COMPLETE 11/09/2019 HISTORY: eryn TECHNIQUE: Renal ultrasound COMMENT: There is a small amount of fluid in Morison's pouch. There is right-sided hydronephrosis. The urinary bladder is not distended and is thickened in appearance with apparent echogenic debris. The left kidney is without evidence of mass. The collecting system is slightly prominent. The right kidney measures 11.7 x 5.7 x 6.1 cm the left is 11.8 x 6.7 x 6.7 cm. IMPRESSION: Bilateral hydronephrosis worse on the right than the left. Thickened bladder wall versus mass plus minus debris/blood clots. Minimal ascites. Electronically signed by Bairon Resendez 11/09/2019 8:36 AM
[2019-11-09 09:18] LABS: HYPOCHROM 1+; LYMPHS 16 % (21-51); MONO 5 % (1-9); SEGS 78 % (42-75)
[2019-11-09] MEDS: ASPIRIN PEG SCH (11:02)
[2019-11-09] MEDS: FLOMAX PEG SCH (11:02)
[2019-11-09] MEDS: LOPRESSOR PEG SCH ×2 (11:02→23:52)
[2019-11-09] MEDS: CALMOSEPTINE OINTMENT TOP SCH (11:03)
--- NOTE | 2019-11-09 13:05 | PROVIDER PROGRESS NOTE ---
Progress Note Chief complaint: unable to communicate HPI: NV and diarrhea. vascular depleted Lives at [facility] with tube feeding. 63-year-old white female who resides in [facility]. She was recently hospitalized with intravascular volume depletion and treated with IV fluids. She has a large pelvic mass and had issues with obstruction as well. Over the last several days, shes been experiencing nausea and vomiting as well as diarrhea. Her feeding is via peg tube on a pump. The staff family is not aware of whether this was adjusted at all during the context of her volume depletion. At any rate, on arrival her creatinine was over four. With all the fluids overnight, creatinine 2.5. Labs: WBC 10.8, hemoglobin 9.7, hematocrit 33.9, platelet count by 59, sodium 148, potassium 5.7, chloride 111, BUN 83, creatinine 2.5. Physical exam: temperature 98.5, pulse 92, respirations 18, blood pressure 134/73, 02 sat 95% on room air. General: chronically ill appearing white female lying in bed in no acute distress HEENT: normocephalic, atraumatic, pupils equal and reactive. Left eyelid droop, mucous membranes dry, trachea midline. Skin: warm and dry, scattered bruising Neck: supple, no jvd Cardiovascular: S1S2, regular rate and rhythm, no murmur or gallop Respiratory: clear with equal air excursion anterior Abdomen: soft, nontender, right side protruding with peg tube noted to upper middle abdominal cavity : non inspected with briones in place Extremities: right arm generalized edema and flaccid. Bilateral lower ext remities weak. Neurological: alert, unable to follow commands. Assessment and plan: Acute kidney injury. She had obstruction last time she was admitted from a large pelvic mass. US today with obstruction. Labs are improving with IV fluids. Continue same. Will ask urology to see her again. debbie
--- NOTE | 2019-11-09 15:10 | CONSULTATION ---
DATE OF CONSULTATION: 11/09/2019 CHIEF COMPLAINT: Acute kidney injury. HISTORY OF PRESENT ILLNESS: Ms. Abrams is a 63-year-old with history of multifocal cerebrovascular accident, osteoarthritis, hypertension, gastroesophageal reflux disease, type 2 diabetes, and large ovarian mass who presents evaluation of acute kidney injury and history of bilateral hydronephrosis. The patient was brought to the hospital yesterday from [facility] as she was nauseated and had vomiting and she was felt to be dehydrated. The patient has a feeding tube. The patient has a history of a complex ovarian mass which was supposedly previously biopsied. The patient has been seen by Dr. Jara at [facility] as well as Dr. Cervantes. The patient presented to the ED and was found to have acute kidney injury with creatinine elevated at 4.2 from creatinine of 0.6. The patient has indwelling urethral catheter inserted which returned with approximately 1300 mL of drainage. The patient has had multiple admissions over the past several months due to dehydration as well as altered status and urinary tract infection. She has previously been seen by Hematology/ Oncology, as well as Nephrology. Urology was consulted due to persistent acute kidney injury. The patient has normal renal function at time of discharge from her last admission. Creatinine at that time was 0.6. The patient had a CT scan done at the last admission which showed bilateral hydronephrosis likely related to the pelvic mass. Urology does not appear to have been consulted at that time. Patient is nonverbal and there is no one at bedside this morning. PAST MEDICAL HISTORY: 1. Multifocal cerebrovascular accident. 2. Osteoarthritis. 3. Hypertension. 4. Gastroesophageal reflux disease. 5. Type 2 diabetes. 6. Complex ovarian mass. PAST SURGICAL HISTORY: 1. Total left knee arthroplasty. 2. Left carpal tunnel surgery. 3. Feeding tube. 4. Ovarian biopsy. ALLERGIES: Sulfa. HOME MEDICATION: 1. Norvasc. 2. Arginine/glutamine. 3. Calcium. 4. Aspirin. 5. Atorvastatin. 6. Lactulose. 7. Metformin. 8. Methanol zinc. 9. Metoprolol. 10. Oxcarbazepine. 11. Flomax. 12. Zinc. FAMILY HISTORY: Reviewed. The patient is nonverbal. SOCIAL HISTORY: Denies history of tobacco, alcohol, or illicit drug use. The patient currently lives in a nursing facility. REVIEW OF SYSTEMS: Unable to adequately obtain information from patient as she is nonverbal. All information obtained from prior notes and her chart. PHYSICAL EXAMINATION: Vital Signs: Pulse 92, blood pressure 134/76, oxygen 95% on room air. General: No acute distress. Resting comfortably in bed, unable to respond to questions. HEENT: Normocephalic, atraumatic. Pupils equal, round, reactive to light. Neck: No masses. Trachea midline. Lungs: Clear to auscultation bilaterally. No increased work of breathing. Cardiovascular: Regular rate and rhythm. Abdomen: Slightly distended with palpable mass felt in the lower pelvis. Genitourinary: No suprapubic tenderness. No CVA tenderness. Urethral catheter in place draining clear yellow urine. Skin: No obvious skin lesions or rashes. Neurologic: The patient moves her left arm and right leg. No movement seen of the left leg or right arm. Patient nonverbal. LABORATORY DATA: White blood cell count 10.8, hemoglobin 9.7, hematocrit 33.9, platelet 559,000. Sodium 148, potassium 5.7, chloride 111, bicarbonate 23, BUN 83, creatinine 2.5, glucose 121, calcium 11.2, alkaline phosphatase 125, ALT 89, AST 45, albumin 2.9. Urinalysis shows 100 protein, trace blood, large amount of leukocyte, and negative bacteria. ASSESSMENT/PLAN: Ms. Abrams is a 63-year-old with a history of multifocal cerebral vascular accident, osteoarthritis, hypertension, gastroesophageal reflux disease, type 2 diabetes, as well as a large ovarian mass, who presents in consultation regarding acute kidney injury. The patient's creatinine on presentation yesterday was 4.2. Creatinine is down trended to 2.5 today. The patient has been seen previously by Nephrology, and had a CT scan done back in October, which showed a bilateral hydronephrosis likely related to compression from her ovarian mass. Minimal documentation about the ovarian mass, but it seems that she seen by Dr. Jara as well as Dr. Cervantes regarding this. Uncertain if she is a surgical candidate or if she is scheduled to undergo any chemotherapy. The patient was previously seen by Dr. Nunez regarding this. Patient is also seen by Dr. Em for acute kidney injury. The patient had a creatinine at discharge during last admission of 0.6. Creatinine continues to downtrend today. The patient is scheduled to have a renal ultrasound performed. We will follow this up. If she continues to have hydronephrosis may have to consider cystoscopy with bilateral ureteral stent placement, especially if she is being scheduled to undergo any type of chemotherapy. Patient is nonverbal with no one at bedside. We will try to obtain the records regarding her care and discuss her case with the hospitalist. We will continue to monitor from a urologic standpoint. We will leave indwelling catheter in at this time. Please call with questions or concerns. cc: Pernell Lancaster MD MTDAnila
[2019-11-09 18:30] LABS: URINE SOURCE CATH
[2019-11-09 18:39] LABS: BILIRUBIN URINE NEGATIVE (NEGATIVE); BLOOD URINE MODERATE (NEGATIVE); COLOR ORANGE; GLUCOSE URINE NEGATIVE (NEGATIVE); KETONE URINE NEGATIVE (NEGATIVE); LEUKOCYTES URINE LARGE (NEGATIVE); NITRITE URINE NEGATIVE (NEGATIVE); PROTEIN URINE 100 mg/dL (NEGATIVE); SP GRAVITY URINE 1.013; TURBIDITY URINE TURBID (CLEAR); UROBILINOGEN URINE NORMAL (NORMAL)
[2019-11-09 18:43] LABS: UR EPITHELIAL CELLS <10 /HPF (<10); URINE BACTERIA 1+ /HPF; URINE RBC TNTC /HPF (<10); URINE WBC TNTC /HPF (<10)
[2019-11-09 18:45] LABS: URINE YEAST NONE SEEN
[2019-11-09 19:02] LABS: UR CREAT RANDOM 28.6 mg/dL (11-20)
--- NOTE | 2019-11-09 20:23 | PROGRESS NOTE ---
DATE: 11/09/2019 SUBJECTIVE: Patient has no major complaints. OBJECTIVE: Blood pressure is 134/72, heart rate 85, respiratory rate 18, temperature 97.7 degrees. PROBLEM LIST: 1. Kind of global encephalopathy. She has had a large cerebrovascular accident with hemorrhage, and she has never really recovered. I am not too sure how far off her baseline she is. 2. Acute kidney injury. She is fairly profoundly dehydrated. She is hyperkalemic, but she is responding to IV fluids so we will continue that. She is also hypercalcemic. She may have a urinary tract infection as well. 3. Urinary tract infection. I think she is on antibiotics as such. DISPOSITION: She had been in assisted, but she no longer has days so we are going to get a palliative care consult. We do probably need to get some sort of prognostic information on her, but she is not functional enough for chemo now. I do not think she is a functional level above 2. She uses a PEG for her medications. She cannot sit up. I do not think she is a chemo candidate either so in any case, we will continue to follow closely, but I think her prognosis is overall poor, and hospice would be a good option. cc: Matt Adler MD
--- NOTE | 2019-11-09 20:39 | PROGRESS NOTE ---
DATE: 11/09/2019 ADVANCE CARE DIRECTIVE: I have discussed the case with her neighbor and friend who is also her power of assistant attorney general. We are describing her poor overall prognosis. 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 We are trying to get records from Dr. Cervantes. In any case, I think her prognosis is poor because I do not think she is functional enough to get chemo at this point, even if it is neoadjuvant and we have discussed about significant interventions in this setting and she feels like she will need just to go home and consider hospice and she will be a DNR 1 as described. cc: Matt Adler MD
[2019-11-09] MEDS: ROCEPHIN 1 GM in NS 50 ML IV SCH (23:30)
[2019-11-09] MEDS: ZINC SULFATE PEG SCH (23:51)
[2019-11-09] MEDS: LACTULOSE PEG SCH (23:51)
[2019-11-09] MEDS: ZOLOFT PEG SCH (23:51)
[2019-11-09] MEDS: NORVASC PEG SCH (23:51)
[2019-11-09] MEDS: VITAMIN C PEG SCH (23:51)
[2019-11-09] MEDS: TRILEPTAL PEG SCH (23:53)
[2019-11-10] MEDS: HUMALOG SUBQ SCH ×5 (06:16→22:02)
[2019-11-10] MEDS: NS 1,000 ML IV SCH (06:17)
[2019-11-10 07:31] LABS: HEMATOCRIT 31.7 % (37.0-47.0); HEMOGLOBIN 9.1 g/dL (12.0-16.0); MCH 27.7 PG (27-31); MCHC 28.7 g/dL (33-37); MCV 96.4 FL (81-99); RBC 3.29 XMIL (4.2-5.4); RDW 16.9 % (11.5-14.5); WBC 11.12 X1000 (4.8-10.8)
[2019-11-10 08:00] LABS: ALBUMIN 2.7 g/dL (3.5-5.0); CALCIUM 10.2 mg/dL (8.8-10.2); CREATININE 1.4 mg/dL (0.5-0.9); PHOSPHORUS 3.5 mg/dL (2.7-4.5); POTASSIUM 4.7 mmol/L (3.5-5.1); PREALBUMIN 9.3 mg/dL (20-40)
[2019-11-10] MEDS: VITAMIN C PEG SCH ×2 (09:51→23:46)
[2019-11-10] MEDS: ASPIRIN PEG SCH (09:51)
[2019-11-10] MEDS: CALMOSEPTINE OINTMENT TOP SCH (09:51)
[2019-11-10] MEDS: FLOMAX PEG SCH (09:51)
[2019-11-10] MEDS: LOPRESSOR PEG SCH ×2 (09:51→23:46)
[2019-11-10] MEDS: LACTULOSE PEG SCH ×2 (09:51→23:45)
[2019-11-10] MEDS: ZINC SULFATE PEG SCH ×2 (09:51→23:47)
[2019-11-10] MEDS: TRILEPTAL PEG SCH ×2 (09:54→23:47)
[2019-11-10] MEDS: D5W 1,000 ML IV SCH ×2 (10:41→18:41)
--- NOTE | 2019-11-10 11:07 | PROGRESS NOTE ---
DATE: 11/10/2019 SUBJECTIVE: No acute events overnight. The patient remains on IV fluids and tube feeding. The patient had a renal ultrasound yesterday which showed bilateral hydronephrosis. Ultrasound described as debris within the bladder, which I think is likely related to her ovarian mass causing distortion of her lower pelvis. The patient has indwelling catheter which was drained 2.3 L yesterday. The patient has had stable vital signs. Renal function has slowly improved with creatinine 2.5 yesterday from 4.2 on admission. OBJECTIVE: Vital Signs: Temperature 98.2, heart rate 93, blood pressure 146/68, oxygen saturation 97% on room air. General: No acute distress. Resting comfortably in bed. The patient is nonverbal. Respiratory: Good respiratory effort without audible wheezing or rales. Abdomen: Soft with palpable mass in the lower pelvis. G-tube in place with tube feeds going through. : No suprapubic tenderness. Urethral catheter in place draining clear yellow urine. Extremities: The patient was not moving her extremities this morning. LABS: White blood cell count 11.1, hemoglobin 9.1, hematocrit 31.7, platelets 325. Renal panel has not returned so far this morning. IMAGING: Renal ultrasound was reviewed today which showed bilateral hydronephrosis, mild to moderate, inability to truly see the bladder on imaging as there appears to be ovarian mass and fluid collection overlying this. A urethral catheter is draining clear yellow urine at this time with no balloon documented on the ultrasound. ASSESSMENT AND PLAN: Ms. Abrams is a 63 year old with cerebrovascular accidents, osteoarthritis, hypertension, gastroesophageal reflux disease, type 2 diabetes, as well as a complex ovarian mass, who presented in consultation regarding acute kidney injury with bilateral hydronephrosis on renal ultrasound yesterday. Reviewing notes seems like there is consideration for palliative care for the patient. No family has been at bedside when I have evaluated her. I tried to contact them today. The patient does have hydronephrosis to both kidneys. If renal function continues to improve, could hold off on any intervention. It does not sound like the patient will receive any type of chemotherapy or surgical intervention due to poor health status. I think if the patient was having recurrent episodes of infection or recurrent episodes of chronic kidney disease or acute kidney injury, would likely need to have stents placed. Would have to talk about this with the patient's power of attorney law clerk. I will try to contact her later today. We will continue to monitor from a urologic standpoint. We will keep indwelling catheter at this time. Please call with questions or concerns. cc: Pernell Lancaster MD MTDD
--- NOTE | 2019-11-10 13:06 | NEPHROLOGY PROGRESS NOTE ---
DATE: 11/10/2019 SUBJECTIVE: She remains nonverbal. She does move her head and look at me. OBJECTIVE: Vital Signs: Blood pressure 146/68, heart rate 93, afebrile. Intake 1.2 L, output 2.4 L. Generally: Mental status as above. No acute distress. Skin: Warm and dry. Oropharynx is dry. Mouth breathing. Neck: Neck veins are not appreciated in the 45 degree elevation position. Trachea is midline. Heart: Regular. No gallops. Lungs: Equal. No crackles or wheezes. Abdomen: Soft, nontender. Diminished bowel sounds. Extremities: Have trace edema in the right arm only. IMPRESSION AND PLAN: 1. Acute kidney injury. Labs are pending. Good urine output. Improving as of yesterday. 2. Electrolyte abnormalities. Hypernatremia and hyperkalemia. Again, data are pending. She is receiving normal saline at 75 mL an hour, and this likely will need to be modified to address her hypernatremia today. 3. History of urologic obstruction. She has been evaluated by Dr. Lancaster who agrees that observation and intravenous fluids are the appropriate initial intervention. If her kidney function does not correct with fluids, then he may have to consider intervention. cc: Chuckie Em MD
[2019-11-10] MEDS ORDERED: TYLENOL PO PRN (15:01)
--- NOTE | 2019-11-10 17:59 | PROGRESS NOTE ---
DATE: 11/10/2019 SUBJECTIVE: The patient has no major complaints. OBJECTIVE: Vital signs: Blood pressure 132/80, heart rate of 106, respiratory rate of 18, temperature of 98.3 degrees. Cardiovascular: Regular rate and rhythm. Pulmonary: Bilateral breath sounds. Clear to auscultation. GI: Soft, nontender, nondistended. Bowel sounds are positive. Neurologic: Really at baseline. She moves her left hand and grasps it. She looks at you. Sometimes she nods. It is not completely clear what all she understands, but she looked a little bit more with it today, tracking a bit better. LABORATORY: White count 11, hemoglobin and hematocrit 9 and 31, platelets 525,000. Sodium unfortunately up to 156. Creatinine down to 1.4. PROBLEM LIST: 1. Global encephalopathy associated with recent cerebrovascular accident with a hemorrhagic conversion. I think she is pretty close to her baseline, but she is not really functional enough to do very much on her own. I do not think she will be able to tolerate any chemotherapy. 2. Acute kidney injury. That has improved with hydration. We will continue hydration. 3. Hypernatremia. That has actually gotten worse with hydration, so we have changed her fluids to D5 and we will monitor. 4. 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 She has not been able to get treatment, obviously. It looks like we really have to consider being a hospice candidate. I had a long discussion with the neighbor, power of litigation attorney, but at this point, she may have changed her mind about that. I certainly encouraged her 1 way or another to consider hospice as that will give her the most support for the patient at home because right now she is total care and she does not have a way to get her into a long-term care facility. She spent all the rehab days, so we may have to look into that. Palliative Care is consulted. We will continue to monitor. cc: Matt Adler MD
[2019-11-10] MEDS: ROCEPHIN 1 GM in NS 50 ML IV SCH (21:57)
[2019-11-10] MEDS: NORVASC PEG SCH (23:46)
[2019-11-10] MEDS: ZOLOFT PEG SCH (23:46)
[2019-11-11] MEDS: D5W 1,000 ML IV SCH ×3 (04:54→17:27)
[2019-11-11] MEDS: HUMALOG SUBQ SCH ×4 (07:23→21:21)
[2019-11-11 08:04] LABS: HEMATOCRIT 33.9 % (37.0-47.0); HEMOGLOBIN 9.3 g/dL (12.0-16.0); MCHC 27.4 g/dL (33-37); MCV 98.5 FL (81-99); MPV 10.2 FL (7.4-10.4); RBC 3.44 XMIL (4.2-5.4); WBC 11.43 X1000 (4.8-10.8)
[2019-11-11 08:13] LABS: ALBUMIN 2.5 g/dL (3.5-5.0); CALCIUM 10.6 mg/dL (8.8-10.2); CREATININE 1.4 mg/dL (0.5-0.9); PHOSPHORUS 3.2 mg/dL (2.7-4.5); POTASSIUM 3.9 mmol/L (3.5-5.1)
[2019-11-11] MEDS: LACTULOSE PEG SCH (09:19)
[2019-11-11] MEDS: TRILEPTAL PEG SCH ×2 (09:19→21:20)
[2019-11-11] MEDS: VITAMIN C PEG SCH ×2 (09:19→21:20)
[2019-11-11] MEDS: ZINC SULFATE PEG SCH ×2 (09:19→21:20)
[2019-11-11] MEDS: FLOMAX PEG SCH (09:19)
[2019-11-11] MEDS: ASPIRIN PEG SCH (09:19)
[2019-11-11] MEDS: CALMOSEPTINE OINTMENT TOP SCH (09:19)
[2019-11-11] MEDS: LOPRESSOR PEG SCH ×2 (09:19→21:20)
--- NOTE | 2019-11-11 13:57 | PROVIDER PROGRESS NOTE ---
Progress Note Subjective: difficult to arouse, recently given sedative medication Objective: temperature 98.7, pulse 90, respirations 16, blood pressure 127/58, O2 sat 100% on room air. General: chronically ill appearing white female lying in bed in no acute distress HEENT: normocephalic, atraumatic, pupils equal and reactive. Left eyelid droop, mucous membranes dry, trachea midline. Skin: warm and dry, scattered bruising Neck: supple, 6 cm jvd Cardiovascular: S1S2, regular rate and rhythm, no murmur or gallop Respiratory: coarse breath sounds to the right anterior. Abdomen: soft, nontender, right side protruding with peg tube noted to upper middle abdominal cavity : non inspected with briones in place Extremities: right arm flaccid. Bilateral lower extremities weak. No edema noted. Neurological:drowsy, unable to follow commands. Labs: intake 2430, output 1900. WBC 11.43, hemoglobin 9.3, hematocrit 33.9, platelet count for 52, sodium 156, potassium 3.9, chloride 123, carbon dioxide 19, BUN 48, creatinine 1.4. Albumin 2.5. Impression: Acute kidney injury. Likely prerenal from volume depletion. Creatinine stable. Good urine output. Hypernatremia. On D5W at 100/hr. Acid base. CO2 19. Fluid volume. Mostly Euvolemic on exam. No distress noted. Blood pressure. In target. Nutrition. Tube feeding in place again. High residual noted. Medication review. Can we swap everyday lactulose? manager long term care use in decreased renal function causes electrolyte imbalances and dehydration. We will sign off today. debbie
[2019-11-11] MEDS ORDERED: NS 0 ML ONE (15:03)
--- NOTE | 2019-11-11 17:43 | PROGRESS NOTE ---
DATE: 11/11/2019 SUBJECTIVE: The patient is nonverbal. No acute issues noted as per nursing staff overnight. OBJECTIVE: Vital Signs: Temperature 98.7 degrees, heart rate 84, respiratory rate 18, blood pressure 118/83. O2 saturation 97% on room air. General Examination: This is a chronically ill- appearing, 63-year-old, female lying in bed, in no acute distress. Cardiovascular: S1, S2 heard. No murmurs, gallops, or rubs. Regular rate and rhythm. Respiratory: Clear bilaterally to auscultation. No work of breathing or using accessory muscles. Abdomen: Soft, nontender to palpation. Bowel sounds present. No organomegaly. Extremities: No clubbing, cyanosis, or edema. Peripheral pulses present in both legs. Neurological: Patient has right side hemiplegia noted. The patient is aphasic. LABORATORY DATA: Reviewed with sodium 156 and creatinine 1.4. ASSESSMENT AND PLAN: 1. Recent cerebrovascular accident with hemorrhagic conversion. Patient is aphasic. She is nonfunctional. I do not think she is going to be a candidate for any chemotherapy. 2. Acute kidney injury. Creatinine continues to improve. Her creatinine is back to normal today. Nephrology has been following this patient but they signed off. 3. Hyponatremia. We will continue with D5W. 4. 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 I do not think this patient will be a candidate for any treatment for that. Palliative Care has been consulted for further recommendation. 5. Disposition: I think this patient is a hospice patient so I think we will need to go that way. We will explain to the family about the poor prognosis of this patient. Whenever the family thinks she is ready, she can be sent home with hospice. cc: Rafat Manning MD
[2019-11-11] MEDS: ROCEPHIN 1 GM in NS 50 ML IV SCH (21:18)
[2019-11-11] MEDS: NORVASC PEG SCH (21:20)
[2019-11-11] MEDS: ZOLOFT PEG SCH (21:20)
[2019-11-12] MEDS: D5W 1,000 ML IV SCH ×4 (00:53→22:25)
[2019-11-12] MEDS: HUMALOG SUBQ SCH ×5 (06:00→22:24)
[2019-11-12 08:11] LABS: HEMATOCRIT 30.3 % (37.0-47.0); HEMOGLOBIN 8.4 g/dL (12.0-16.0); MCH 26.1 PG (27-31); MCHC 27.7 g/dL (33-37); MCV 94.1 FL (81-99); MPV 10.1 FL (7.4-10.4); RBC 3.22 XMIL (4.2-5.4); RDW 16.3 % (11.5-14.5); WBC 12.32 X1000 (4.8-10.8)
[2019-11-12] MEDS: ASPIRIN PEG SCH (08:22)
[2019-11-12] MEDS: TRILEPTAL PEG SCH ×2 (08:23→22:53)
[2019-11-12] MEDS: LACTULOSE PEG SCH (08:23)
[2019-11-12] MEDS: LOPRESSOR PEG SCH ×2 (08:23→22:16)
[2019-11-12] MEDS: VITAMIN C PEG SCH ×2 (08:23→22:17)
[2019-11-12] MEDS: ZINC SULFATE PEG SCH ×2 (08:23→22:17)
[2019-11-12] MEDS: FLOMAX PEG SCH (08:23)
[2019-11-12] MEDS: CALMOSEPTINE OINTMENT TOP SCH (08:24)
[2019-11-12 08:31] LABS: ALBUMIN 2.8 g/dL (3.5-5.0); CALCIUM 10.4 mg/dL (8.8-10.2); PHOSPHORUS 2.8 mg/dL (2.7-4.5); POTASSIUM 3.9 mmol/L (3.5-5.1)
[2019-11-12] MEDS: ZOLOFT PEG SCH (22:16)
[2019-11-12] MEDS: NORVASC PEG SCH (22:17)
[2019-11-12] MEDS: ROCEPHIN 1 GM in NS 50 ML IV SCH (22:17)
[2019-11-13] MEDS: D5W 1,000 ML IV SCH (04:39)
[2019-11-13] MEDS: HUMALOG SUBQ SCH (06:56)
[2019-11-13 08:26] LABS: HEMATOCRIT 30.1 % (37.0-47.0); HEMOGLOBIN 8.8 g/dL (12.0-16.0); MCH 26.5 PG (27-31); MCHC 29.2 g/dL (33-37); MCV 90.7 FL (81-99); MPV 9.9 FL (7.4-10.4); RBC 3.32 XMIL (4.2-5.4); RDW 15.7 % (11.5-14.5); WBC 14.46 X1000 (4.8-10.8)
[2019-11-13 08:27] VITALS: BP 137/63
[2019-11-13] MEDS: VITAMIN C PEG SCH (08:35)
[2019-11-13] MEDS: ASPIRIN PEG SCH (08:35)
[2019-11-13] MEDS: ZINC SULFATE PEG SCH (08:35)
[2019-11-13] MEDS: LACTULOSE PEG SCH (08:35)
[2019-11-13] MEDS: LOPRESSOR PEG SCH (08:35)
[2019-11-13] MEDS: TRILEPTAL PEG SCH (08:35)
[2019-11-13] MEDS: CALMOSEPTINE OINTMENT TOP SCH (08:35)
[2019-11-13] MEDS: FLOMAX PEG SCH (08:35)
[2019-11-13 09:05] LABS: AGAP 15; ALBUMIN 2.5 g/dL (3.5-5.0); BUN 26 mg/dL (8-22); CALCIUM 9.5 mg/dL (8.8-10.2); CHLORIDE 105 mmol/L (98-107); COSMO 286; CREATININE 0.8 mg/dL (0.5-0.9); ESTIMATED GFR > 60; GLUCOSE 169 mg/dL (70-104); PHOSPHORUS 2.7 mg/dL (2.7-4.5); POTASSIUM 3.6 mmol/L (3.5-5.1); SODIUM 139 mmol/L (136-145); TCO2 19 mmol/L (25-35)
--- NOTE | 2019-11-13 22:06 | DISCHARGE SUMMARY ---
ADMISSION DATE: 11/08/2019 DISCHARGE DATE: 11/13/2019 PRIMARY CARE PROVIDER: Gian Combs. PERTINENT PROCEDURES: Head CT, old left infarct with a small parenchymal hemorrhage in the left occipital lobe. Renal ultrasound bilateral hydronephrosis worse on the right than the left, a thickened bladder wall versus mass plus or minus debris, blood clots, minimal ascites. CONSULTATIONS: Dr. Lancaster. DISCHARGE DIAGNOSES: 1. Recent CVA with hemorrhagic conversion. The patient is aphasic, nonfunctional, not a candidate for any therapy. She has been made a DNR level 1, and will be discharged home with [facility]. 2. Acute kidney injury, likely prerenal from volume depletion, improved. Nephrology signed off. 3. Hypernatremia, improved. 4. 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 Palliative care has been following the patient. The patient will be discharged home with [facility] and they will set up DME. S he will be discharged home today. HOSPITAL COURSE: Briefly, Ms. Abrams is a 63-year-old with a past medical history of multifocal CVA, osteoarthritis, hypertension, GERD, type 2 diabetes, and complex ovarian mass, who was brought to the ED from [facility] for nausea and vomiting, was felt to be dehydrated. The patient does have a feeding tube. In the ED she was found to have an acute kidney injury with a creatinine of 4.2. There was also some concern over her ovarian mass could be causing some postobstructive issues. A renal ultrasound was obtained by Nephrology, as well as Urology was consulted. Discussions were had with her neighbor, who is also her Power of Parking Worker about her overall prognosis. Palliative Care was brought on board as well with ongoing discussions. The patient was made a DNR level 1. She continued with global encephalopathy secondary to her previous large cerebrovascular accident with hemorrhage. She did respond well to the IV fluids, as well as antibiotics for her urinary tract infection. Power of Parking Worker shows [facility], and they were going to set a for DME with [facility] today. VITAL SIGNS: At time of discharge, temperature is 97.9 degrees, heart rate 87, respirations 16, blood pressure 106/92, O2 saturation is 98% on room air. DISCHARGE MEDICATIONS: Will be per [facility]. DISCHARGE INSTRUCTIONS: The patient has been getting tube feeds per PEG tube with Glucerna 1.5 at 45 mL/h x23 hours with 55 mL/h flushes, again this will be handled per hospice. She will be discharged home with [facility]. Dictated by SOFI Aguilera for Rafat Manning MD Addendum: Patient seen and examined by myself. Agree with GOLF COURSE SUPERINTENDENT note. It reflects my assessment and plan. Patient is being discharged in stable condition. Will be seen by hospice company at home. cc: Rafat Manning MD [facility]
== END 2019-11-13 10:45 | disposition hospice, home (50) | DRG 683 ==
LOC: SUPCPDRO → ED 11:34 → 3N 18:38 → SUATTDRO 18:38
PROVIDERS: ATTEND Internal Medicine